=== PATIENT | female | born 1955 | race African-American/Black ===

== ENCOUNTER 2019-11-29 14:45 | Emergency (ER) | payer OTHER ==
--- NOTE | 2019-11-29 15:48 | ER ---
Nurse's Notes [facility] Name: Caroline Newberry Age: 64 yrs Sex: Female : 1955 Arrival Date: 11/29/2019 Time: 14:47 Bed 9 Private MD: Diagnosis: Radiculopathy, cervical region Presentation: 11/28 15:17 Chief complaint: Patient states: Hurt my neck in October lifting stuff and the pain jl7 goes down my back. Coronavirus screen: The patient has NOT traveled to a country currently being monitored by the [facility] within the last 14 days. Proceed with normal triage procedures. Ebola Screen: No symptoms or risks identified at this time. Initial Sepsis Screen: Does the patient meet any 2 criteria? No. Patient's initial sepsis screen is negative. Does the patient have a suspected source of infection? No. Patient's initial sepsis screen is negative. Risk Assessment: Do you want to hurt yourself or someone else? Patient reports no desire to harm self or others. Onset of symptoms was November 08, 2019. 15:17 Method Of Arrival: Ambulatory 7 15:17 Acuity: LOLITA 4 jl7 Triage Assessment: 15:20 General: Appears in no apparent distress. uncomfortable, Behavior is calm, cooperative, jl7 appropriate for age. Pain: Complains of pain in neck Pain radiates to back, right arm and left arm Pain currently is 8 out of 10 on a pain scale. Historical: - Allergies: 15:20 Sulfa (Sulfonamide Antibiotics); jl7 - Home Meds: 15:20 amlodipine oral [Active]; jl7 - PMHx: 15:20 Hypertension; jl7 - PSHx: 15:20 ; jl7 - Immunization history:: Adult Immunizations up to date. - Social history:: Smoking status: Patient denies any tobacco usage or history of. Screenin:21 Abuse screen: Denies threats or abuse. Denies injuries from another. ls4 15:21 Nutritional screening: No deficits noted. Tuberculosis screening: No symptoms or risk ls4 factors identified. Fall Risk None identified. Assessment: 15:21 Neuro: Level of Consciousness is awake, alert, obeys commands, Reports NECK PAIN AFTER ls4 SWERVING CAR TO AVOID ANOTHER CAR . Denies weakness blurred vision dizziness, difficulty swallowing, paresthesias numbness headache photophobia diplopia. Cardiovascular: Capillary refill < 3 seconds Patient's skin is warm and dry. Musculoskeletal: Circulation, motion, and sensation intact. Capillary refill < 3 seconds, Range of motion: intact in all extremities, Swelling absent. Vital Signs: 15:17 BP 148 / 103; Pulse 74; Resp 17 S; Temp 97.7(O); Pulse Ox 100% on R/A; Pain 8/10; jl7 23:53 Pulse 70; Resp 14; Pulse Ox 100% on R/A; Pain 3/10; ls4 ED Course: 14:47 Patient arrived in ED. ag5 15:19 Triage completed. jl7 15:20 Arm band placed on right wrist. jl7 15:21 Patient has correct armband on for positive identification. Bed in low position. Call ls4 light in reach. Side rails up X 1. 15:21 No provider procedures requiring assistance completed. Patient did not have IV access ls4 during this emergency room visit. 15:22 Camille Barahona FNP-C is [facility]. snw 15:22 Pawel Cadet MD is Attending Physician. snw 15:36 Gina Gutierrez, RN is Primary Nurse. ls4 Administered Medications: 15:50 Drug: TORadol 30 mg Route: IM; Site: left deltoid; ls4 16:05 Follow up: Response: No adverse reaction; Marked relief of symptoms ls4 Outcome: 15:47 Discharge ordered by . snw 16:08 Patient left the ED. ls4 16:08 Discharged to home ambulatory. ls4 16:08 Condition: good 16:08 Discharge instructions given to patient, Instructed on discharge instructions, follow up and referral plans. safety practices, Demonstrated understanding of instructions, follow-up care, medications, Prescriptions given X 1, 2. Signatures: Camille Barahona FNP-C ORTHOPTIST-Csnw Lilia Christy RN RN jl7 Gina Gutierrez RN RN ls4 AbhinavCathleen ag5
--- NOTE | 2019-11-29 15:49 | EDPHYS ---
Physician Documentation [facility] Name: Caroline Newberry Age: 64 yrs Sex: Female : 1955 Arrival Date: 11/29/2019 Time: 14:47 Bed 9 Private MD: ED Physician Pawel Cadet HPI: 11/28 15:53 This 64 yrs old Black Female presents to ER via Ambulatory with complaints of Neck snw Pain, <24hrs Old. 15:53 The symptoms are located on the base of the skull. Context: The problem was sustained snw at work, The neck injury/problem resulted from lifting, last month in [facility]. Associated signs and symptoms: The patient has no apparent associated signs or symptoms. The pain does not radiate. Modifying factors: The symptoms are alleviated by nothing. the symptoms are aggravated by pressure. Severity of symptoms: At their worst the symptoms were moderate. The patient has not experienced similar symptoms in the past. Saw clinic in [facility], given anti-inflam, muscle relaxer, pain medication. Historical: - Allergies: 15:20 Sulfa (Sulfonamide Antibiotics); jl7 - Home Meds: 15:20 amlodipine oral [Active]; jl7 - PMHx: 15:20 Hypertension; jl7 - PSHx: 15:20 ; jl7 - Immunization history:: Adult Immunizations up to date. - Social history:: Smoking status: Patient denies any tobacco usage or history of. ROS: 15:52 Constitutional: Negative for fever, chills, and weight loss, Eyes: Negative for injury, snw pain, redness, and discharge, ENT: Negative for injury, pain, and discharge, Cardiovascular: Negative for chest pain, palpitations, and edema, Respiratory: Negative for shortness of breath, cough, wheezing, and pleuritic chest pain, Abdomen/GI: Negative for abdominal pain, nausea, vomiting, diarrhea, and constipation, Back: Negative for injury and pain, : Negative for injury, bleeding, discharge, and swelling, MS/Extremity: Negative for injury and deformity, Skin: Negative for injury, rash, and discoloration, Neuro: Negative for headache, weakness, numbness, tingling, and seizure, Psych: Negative for depression, anxiety, suicide ideation, homicidal ideation, and hallucinations. 15:52 Neck: Positive for pain with movement, pain at rest, tenderness, of the posterior neck. Exam: 15:49 Constitutional: This is a well developed, well nourished patient who is awake, alert, snw and in no acute distress. Head/Face: Normocephalic, atraumatic. Eyes: Pupils equal round and reactive to light, extra-ocular motions intact. Lids and lashes normal. Conjunctiva and sclera are non-icteric and not injected. Cornea within normal limits. Periorbital areas with no swelling, redness, or edema. ENT: Nares patent. No nasal discharge, no septal abnormalities noted. Tympanic membranes are normal and external auditory canals are clear. Oropharynx with no redness, swelling, or masses, exudates, or evidence of obstruction, uvula midline. Mucous membranes moist. Chest/axilla: Normal chest wall appearance and motion. Nontender with no deformity. No lesions are appreciated. Cardiovascular: Regular rate and rhythm with a normal S1 and S2. No gallops, murmurs, or rubs. Normal PMI, no JVD. No pulse deficits. Respiratory: Lungs have equal breath sounds bilaterally, clear to auscultation and percussion. No rales, rhonchi or wheezes noted. No increased work of breathing, no retractions or nasal flaring. Abdomen/GI: Soft, non-tender, with normal bowel sounds. No distension or tympany. No guarding or rebound. No evidence of tenderness throughout. Back: No spinal tenderness. No costovertebral tenderness. Full range of motion. Skin: Warm, dry with normal turgor. Normal color with no rashes, no lesions, and no evidence of cellulitis. Neuro: Awake and alert, GCS 15, oriented to person, place, time, and situation. Cranial nerves II-XII grossly intact. Motor strength 5/5 in all extremities. Sensory grossly intact. Cerebellar exam normal. Normal gait. Psych: Awake, alert, with orientation to person, place and time. Behavior, mood, and affect are within normal limits. 15:49 ENT: External ear(s): are unremarkable, Ear canal(s): are normal, Nose: is normal, Mouth: is normal, Posterior pharynx: is normal, Voice: is normal. 15:49 Neck: External neck: tenderness, that is moderate, of the left mid cervical area, right mid cervical area, left trapezius, lower cervical area and right trapezius, ROM/movement: is normal, pain, that is moderate, limited range of motion, is not appreciated, Meningeal signs: are not present. 15:49 Musculoskeletal/extremity: ROM: no acute changes, Severe pain noted. no numbness, tingling 15:49 Neuro: Orientation: is normal, Mentation: is normal, Memory: is normal. Vital Signs: 15:17 BP 148 / 103; Pulse 74; Resp 17 S; Temp 97.7(O); Pulse Ox 100% on R/A; Pain 8/10; jl7 23:53 Pulse 70; Resp 14; Pulse Ox 100% on R/A; Pain 3/10; ls4 MDM: 15:37 Patient medically screened. snw 15:52 Data reviewed: vital signs, nurses notes. Data interpreted: Pulse oximetry: on room air snw is 100 %. Interpretation: normal. Counseling: I had a detailed discussion with the patient and/or guardian regarding: the historical points, exam findings, and any diagnostic results supporting the discharge/admit diagnosis, the presence of at least one elevated blood pressure reading (>120/80) during this emergency department visit, the need for outpatient follow up, to return to the emergency department if symptoms worsen or persist or if there are any questions or concerns that arise at home. Special discussion: I have referred the patient to see his PCP for further evaluation of high blood pressure. Based on the history and exam findings, there is no indication for further emergent testing or inpatient evaluation. I discussed with the patient/guardian the need to see the primary care provider for further evaluation of the symptoms. Administered Medications: 15:50 Drug: TORadol 30 mg Route: IM; Site: left deltoid; ls4 16:05 Follow up: Response: No adverse reaction; Marked relief of symptoms ls4 Disposition: 17:25 Co-signature as Attending Physician, Pawel Cadet MD I agree with the assessment and kdr plan of care. Disposition: 11/29/19 15:47 Discharged to Home. Impression: Radiculopathy, cervical region. - Condition is Stable. - Discharge Instructions: Cervical Radiculopathy, Cervical Sprain, Heat Therapy. - Prescriptions for orphenadrine citrate 100 mg Oral Tablet Sustained Release - take 1 tablet by ORAL route 2 times per day As needed; 20 tablet. - Medication Reconciliation Form, Thank You Letter, Antibiotic Education, Prescription Opioid Use form. - Follow up: Emergency Department; When: As needed; Reason: Worsening of condition. Follow up: Private Physician; When: 2 - 3 days; Reason: Recheck today's complaints, Continuance of care, Re-evaluation by your physician. Signatures: Pawel Cadet MD MD [facility] Camille Barahona, [employer]-Csnw Lilia Christy RN RN jl7 Gina Gutierrez RN RN ls4 Corrections: (The following items were deleted from the chart) 16:08 15:47 11/29/2019 15:47 Discharged to Home. Impression: Radiculopathy, cervical region. ls4 Condition is Stable. Forms are Medication Reconciliation Form, Thank You Letter, Antibiotic Education, Prescription Opioid Use. Follow up: Emergency Department; When: As needed; Reason: Worsening of condition. Follow up: Private Physician; When: 2 - 3 days; Reason: Recheck today's complaints, Continuance of care, Re-evaluation by your physician. snw
[2019-11-29] MEDS ORDERED: KETOROLAC 30 MG/ML INJ ONE (16:03)
== END 2019-11-29 16:08 | disposition home or self-care (01) ==
LOC: ER 14:45
DX: M54.12 Radiculopathy, cervical region (principal); I10 Essential (primary) hypertension; Z88.2 Allergy status to sulfonamides
CPT/HCPCS: 96372; 99283

== ENCOUNTER 2022-05-08 10:35 | Emergency (ER) | payer OTHER ==
--- OUTSIDE RECORDS SUMMARY | 2022-05-08 10:39 | XMS REPORT | Continuity of Care Document ---
:1955 Author Organization [facility] t Address [address] [place] [address] Care Team Providers Name Role Phone Brittany Sloan Primary Care Physician [phone] CHARY LINTON Attending Clinician Unavailable CAMRYN BELL Attending Clinician Unavailable Doctor Unassigned, [place] Attending Clinician Unavailable Candy Doss Attending Clinician NOE CASTELAN Attending Clinician Unavailable Nurse, [facility] P[facility] Immunization Attending Clinician Unavailable Noe Castelan DO Attending Clinician LETICIA CAI Attending Clinician Unavailable LETICIA CAI Attending Clinician Unavailable CANDY RAMOS Attending Clinician Unavailable Pob, [facility] Main Attending Clinician Unavailable CHRISTINA OCONNOR Attending Clinician Unavailable MALGORZATA ORNELAS Attending Clinician Unavailable BYRON MILNER Attending Clinician Unavailable KURTIS CAMPOVERDE Attending Clinician Unavailable DO MELVI YOST Attending Clinician Unavailable NEMESIO PADRON Attending Clinician Unavailable MD ODETTE RODRIGUEZ Attending Clinician Unavailable LUSI FOURNIER Attending Clinician Unavailable MD LUIS FOURNIER Attending Clinician Unavailable IVETT ADAMS Attending Clinician Unavailable MD IVETT ADAMS Attending Clinician Unavailable ROBIN CARREON Attending Clinician Unavailable SRIDHAR OLIVO Admitting Clinician Unavailable MELVI YOST Admitting Clinician Unavailable DO MELVI YOST Admitting Clinician Unavailable ODETTE RODRIGUEZ Admitting Clinician Unavailable MD ODETTE RODRIGUEZ Admitting Clinician Unavailable LUIS FOURNIER Admitting Clinician Unavailable MD LUIS FOURNIER Admitting Clinician Unavailable IVETT ADAMS Admitting Clinician Unavailable MD IVETT ADAMS Admitting Clinician Unavailable ROBIN CARREON Admitting Clinician Unavailable Payers Payer Name Policy Type Policy Number Effective Date Expiration Date S ource Problems Condition Condition Condition Status Onset Resolution Last Treating Co mments Source Name Details Category Date Date Treatment Clinician Date No known No known Disease Unive rs active active ity of problems problems [facility] Allergies, Adverse Reactions, Alerts Allergy Allergy Status Severity Reaction(s) Onset Inactive Treating Comm ents Source Name Type Date Date Clinician Sulfa Propensi Active Unknown - Unive rs Dyne ty to See comments 7-27 ity of adverse 00:00: [place] reaction 00 Medical s Branch SULFA DRUG Active Unknown-Cmnt Univ ers DYNE 7-27 ity of 00:00: [place] 00 Medical Branch Sulfa Propensi Active Hives 2020-0 Univers (Sulfona ty to 7-27 ity of mide adverse 00:00: [place] Antibiot reaction 00 Medica l ics) s Branch Sulfa Propensi Active Hives 2020-0 Univers (Sulfona ty to 7-27 ity of mide adverse 00:00: [place] Antibiot reaction 00 Medica l ics) s Branch SULFA Drug Active High Hives 2020-0 Univers (SULFONA Class 7-27 ity of MIDE 00:00: [place] ANTIBIOT 00 Medical ICS) Branch Social History Social Habit Start Date Stop Date Quantity Comments Source Exposure to Not sure [facility] SARS-CoV-2 [facility] (event) [place] Tobacco use and 2021-07-31 2021-07-31 Smokeless tobacco Un iversity of exposure 00:00:00 00:00:00 non-user [facility] Alcohol intake 2021-07-31 2021-07-31 Ex-drinker [facility] 00:00:00 00:00:00 (finding) [facility] Sex [birth year] Universit y of 00:00:00 00:00:00 [facility] Smoking Status Start Date Stop Date Source Never smoked tobacco [facility] Medications Ordered Filled Start Stop Current Ordering Indication Dosage Frequency Signature Comments Components Source Medication Medication Date Date Medication? Clinician (SIG) Name Name multivit-mi 2020-09 Yes 1{tbl} Take 1 Un cosme n-ferrous 1-12 tablet by ity o f sulfate 13:42: mouth [place] (ONE DAILY 50 every Medical MULTI-VIT morning. [place] W-MINERAL) 4.5 mg iron PwPk multivit-mi 2020-09 Yes 1{tbl} Take 1 Un cosme n-ferrous 1-12 tablet by ity o f sulfate 13:42: mouth [place] (ONE DAILY 50 every Medical MULTI-VIT morning. [place] W-MINERAL) 4.5 mg iron PwPk multivit-mi 2020-09 Yes 1{tbl} Take 1 Un cosme n-ferrous 1-12 tablet by ity o f sulfate 13:42: mouth [place] (ONE DAILY 50 every Medical MULTI-VIT morning. [facility]-MINERAL) 4.5 mg iron PwPk multivit-mi 2020-09 Yes 1{tbl} Take 1 Un cosme n-ferrous 1-12 tablet by ity o f sulfate 13:42: mouth [place] (ONE DAILY 50 every Medical MULTI-VIT morning. [place] W-MINERAL) 4.5 mg iron PwPk multivit-mi 2020-09 Yes 1{tbl} Take 1 Un cosme n-ferrous 1-12 tablet by ity o f sulfate 13:42: mouth [place] (ONE DAILY 50 every Medical MULTI-VIT morning. [place] W-MINERAL) 4.5 mg iron PwPk multivit-mi 2020-09 Yes 1{tbl} Take 1 Un cosme n-ferrous 1-12 tablet by ity o f sulfate 13:42: mouth [place] (ONE DAILY 50 every Medical MULTI-VIT morning. [place] W-MINERAL) 4.5 mg iron PwPk multivit-mi 2020-09 Yes 1{tbl} Take 1 Un cosme n-ferrous 1-12 tablet by ity o f sulfate 13:42: mouth [place] (ONE DAILY 50 every Medical MULTI-VIT morning. [place] W-MINERAL) 4.5 mg iron PwPk multivit-mi 2020-09 Yes 1{tbl} Take 1 Un cosme n-ferrous 1-12 tablet by ity o f sulfate 13:42: mouth [place] (ONE DAILY 50 every Medical MULTI-VIT morning. Branch W-MINERAL) 4.5 mg iron PwPk amLODIPine 2020-09 Yes Univers 5 mg tablet 0-25 ity of 00:00: Medical Branch amLODIPine 2020-09 Yes Univers 5 mg tablet 0-25 ity of 00:00: [place] [facility] amLODIPine 2020-09 Yes Univers 5 mg tablet 0-25 ity of 00:00: [place] [facility] amLODIPine 2020-09 Yes Univers 5 mg tablet 0-25 ity of 00:00: [place] [facility] amLODIPine 2020-09 Yes Univers 5 mg tablet 0-25 ity of 00:00: [place] [facility] amLODIPine 2020-09 Yes Univers 5 mg tablet 0-25 ity of 00:00: [place] [facility] amLODIPine 2020-09 Yes Univers 5 mg tablet 0-25 ity of 00:00: [place] [facility] amLODIPine 2020-09 Yes Univers 5 mg tablet 0-25 ity of 00:00: [place] [facility] traMADoL 50 2020- No 4647 50mg Take 1 Uni vers mg tablet 04-14 11-12 tablet by ity of 00:00: 00:00 mouth [place] 00 :00 every 6 Medical (six) Branch hours as needed for Pain (scale 7-10). Indication s: acute pain traMADoL 50 2020- No 4647 50mg Take 1 Uni vers mg tablet 04-14 11-12 tablet by ity of 00:00: 00:00 mouth [place] 00 :00 every 6 Medical (six) Branch hours as needed for Pain (scale 7-10). Indication s: acute pain famotidine 2019-09 No 40mg Take 40 mg Univers 40 mg 10-0612 by mouth. ity of tablet 00:00: 00:00 [place] 00 : Medical Branch famotidine 2019-09 No 40mg Take 40 mg Univers 40 mg 10-0612 by mouth. ity of tablet 00:00: 00:00 [place] 00 :00 Medical Branch Immunizations Ordered Filled Immunization Date Status Comments Sour e Immunization Name Name SARS-COV-2 COVID-19 2021-08-31 Completed Unive rsity of PFIZER VACCINE 00:00:00 [facility] SARS-COV-2 COVID-19 2021-08-31 Completed Unive rsity of PFIZER VACCINE 00:00:00 [facility] SARS-COV-2 COVID-19 2021-08-31 Completed Unive rsity of PFIZER VACCINE 00:00:00 [facility] Influenza Virus 2021-06-23 Completed Universit y of Vaccine 00:00:00 [facility] Influenza Virus 2021-06-23 Completed Universit y of Vaccine 00:00:00 [facility] Influenza Virus 2021-06-23 Completed Universit y of Vaccine 00:00:00 [facility] Influenza Virus 2021-06-23 Completed Universit y of Vaccine 00:00:00 [facility] Influenza Virus 2021-06-23 Completed Universit y of Vaccine 00:00:00 [facility] Influenza Virus 2021-06-23 Completed Universit y of Vaccine 00:00:00 [facility] Influenza Virus 2021-06-23 Completed Universit y of Vaccine 00:00:00 [facility] Influenza Virus 2021-06-23 Completed Universit y of Vaccine 00:00:00 [facility] SARS-COV-2 COVID-19 2021-01-02 Completed Unive rsity of PFIZER VACCINE 00:00:00 [facility] SARS-COV-2 COVID-19 2021-01-02 Completed Unive rsity of PFIZER VACCINE 00:00:00 [facility] SARS-COV-2 COVID-19 2021-01-02 Completed Unive rsity of PFIZER VACCINE 00:00:00 [facility] SARS-COV-2 COVID-19 2021-01-02 Completed Unive rsity of PFIZER VACCINE 00:00:00 [facility] SARS-COV-2 COVID-19 2021-01-02 Completed Unive rsity of PFIZER VACCINE 00:00:00 [facility] SARS-COV-2 COVID-19 2021-01-02 Completed Unive rsity of PFIZER VACCINE 00:00:00 [facility] SARS-COV-2 COVID-19 2021-01-02 Completed Unive rsity of PFIZER VACCINE 00:00:00 [facility] SARS-COV-2 COVID-19 2021-01-02 Completed Unive rsity of PFIZER VACCINE 00:00:00 [facility] SARS-COV-2 COVID-19 2020-12-11 Completed Unive rsity of PFIZER VACCINE 00:00:00 [facility] SARS-COV-2 COVID-19 2020-12-11 Completed Unive rsity of PFIZER VACCINE 00:00:00 [facility] SARS-COV-2 COVID-19 2020-12-11 Completed Unive rsity of PFIZER VACCINE 00:00:00 [facility] SARS-COV-2 COVID-19 2020-12-11 Completed Unive rsity of PFIZER VACCINE 00:00:00 [facility] SARS-COV-2 COVID-19 2020-12-11 Completed Unive rsity of PFIZER VACCINE 00:00:00 [facility] SARS-COV-2 COVID-19 2020-12-11 Completed Unive rsity of PFIZER VACCINE 00:00:00 [facility] SARS-COV-2 COVID-19 2020-12-11 Completed Unive rsity of PFIZER VACCINE 00:00:00 [facility] SARS-COV-2 COVID-19 2020-12-11 Completed Unive rsity of PFIZER VACCINE 00:00:00 [facility] Influenza Virus 2020-07-10 Completed Universit y of Vaccine Recomb Quad 00:00:00 [place] [facility] IM, Preserv and ABX Branc h Free 18-64 YRS Influenza Virus 2020-07-10 Completed Universit y of Vaccine Recomb Quad 00:00:00 [place] [facility] IM, Preserv and ABX Branc h Free 18-64 YRS Influenza Virus 2020-07-10 Completed Universit y of Vaccine Recomb Quad 00:00:00 [place] [facility] IM, Preserv and ABX Branc h Free 18-64 YRS Influenza Virus 2020-07-10 Completed Universit y of Vaccine Recomb Quad 00:00:00 [place] [facility] IM, Preserv and ABX Branc h Free 18-64 YRS Influenza Virus 2020-07-10 Completed Universit y of Vaccine Recomb Quad 00:00:00 [place] [facility] IM, Preserv and ABX Branc h Free 18-64 YRS Influenza Virus 2020-07-10 Completed Universit y of Vaccine Recomb Quad 00:00:00 [place] [facility] IM, Preserv and ABX Branc h Free 18-64 YRS Influenza Virus 2020-07-10 Completed Universit y of Vaccine Recomb Quad 00:00:00 [place] [facility] IM, Preserv and ABX Branc h Free 18-64 YRS Influenza Virus 2020-07-10 Completed Universit y of Vaccine Recomb Quad 00:00:00 [place] [facility] IM, Preserv and ABX Branc h Free 18-64 YRS Vital Signs Vital Name Observation Time Observation Value Comments Source Systolic blood 2021-07-31 19:40:00 123 mm[Hg] Univer sity of pressure [facility] Diastolic blood 2021-07-31 19:40:00 68 mm[Hg] Unive rsity of pressure [facility] Heart rate 2021-07-31 19:40:00 74 /min [facility] Body temperature 2021-07-31 19:40:00 [facility]11 [facility] height 2021-07-31 19:40:00 149.9 cm [facility] Body weight 2021-07-31 19:40:00 53.025 kg [facility] BMI 2021-07-31 19:40:00 23.61 kg/m2 [facility] Oxygen saturation in 2021-07-31 19:40:00 99 /min [facility] Arterial blood by [facility] Pulse oximetry Branch Procedures Procedure Date / Time Performed Performing Clinician [facility] e REFERRAL- 2022-04-20 05:01:00 Doctor Unassigned, No [facility] REQUEST/RESPONSE [facility] SARS-COV-2 COVID-19 2021-08-31 20:10:29 [facility],IM Name [facility] (PFIZER) CT HEAD WO CONTRAST 2021-08-17 23:01:13 Candy Ramos [facility] ASSIGNMENT OF BENEFITS 2021-08-17 22:19:28 Doctor Unassigned, No [facility] Encounters Start End Encounter Admission Attending Care Care Encounter Source Date/Time Date/Time Type Type Clinicians Facility Department ID 2022-05-06 2022-05-06 Outpatient [facility] [id number] [place] 00:00:00 00:00:00 CHARY [facility] 2022-05-05 2022-05-05 Outpatient [facility] [id number] 173 [place] 00:00:00 00:00:00 CHARY 566 [facility] 2022-05-03 2022-05-03 Outpatient PRATH[facility] [id number] 713 [place] 00:00:00 00:00:00 CHARY 990 [facility] 2022-04-30 2022-04-30 Outpatient PRATH, [facility] [id number] 068 [place] 00:00:00 00:00:00 CHARY 498 [facility] 2022-04-26 2022-04-26 Outpatient [facility]ATH[facility] [id number] 713 [place] 00:00:00 00:00:00 CHARY 895 [facility] 2022-04-22 2022-04-22 Outpatient KATTEGUMMUL [facility] [id number] [place] 00:00:00 00:00:00 CAMRYN Quinones 976 [address]ro 2022-04-20 2022-04-20 Orders Doctor ASAF [id number] [place] [address] 00:00:00 00:00:00 Only Unassigned, ALISON [id number] [facility] [id number] Danish as [id number] [facility] francesco 009 Branch 2022-04-19 2022-04-19 Outpatient [facility] [id number] 713 [place] 00:00:00 00:00:00 CHARY 785 Method i 2022-04-15 2022-04-15 Outpatient [facility] [id number] 871 [place] 00:00:00 00:00:00 CHARY 500 [facility] 2022-04-15 2022-04-15 Outpatient [facility] [id number] 352 [place] 00:00:00 00:00:00 CHARY 915 Method i 2022-04-12 2022-04-12 Outpatient [facility] [id number] 983 [place] 00:00:00 00:00:00 CHARY 249 [facility] i 2022-04-06 2022-04-06 Outpatient [facility] [id number] 400 [place] 00:00:00 00:00:00 CHARY 881 [facility] i 2022-04-05 2022-04-05 Outpatient [facility] [id number] 983 [place] 00:00:00 00:00:00 CHARY [address] 2022-03-29 2022-03-29 Outpatient [facility] [id number] 983 [place] 00:00:00 00:00:00 CHARY [address] 2022-03-23 2022-03-23 Outpatient [facility] [id number] 982 [place] 00:00:00 00:00:00 CHARY [address] 2022-03-18 2022-03-18 Outpatient [facility] [id number] 838 [place] 00:00:00 00:00:00 CHARY [address] 2022-03-18 2022-03-18 Outpatient [facility] [id number] 219 [place] 00:00:00 00:00:00 CHARY [address] 2022-03-11 2022-03-11 Outpatient [facility] [id number] 345 [place] 00:00:00 00:00:00 CHARY [address] 2022-03-04 2022-03-04 Outpatient [facility] [id number] 262 [place] 00:00:00 00:00:00 CHARY [address] 2022-03-01 2022-03-01 Outpatient [facility] [id number] 514 [place] 00:00:00 00:00:00 CHARY [address] 2022-02-24 2022-02-24 Outpatient [facility] [id number] 632 [place] 00:00:00 00:00:00 CHARY [address] 2022-02-22 2022-02-22 Outpatient [facility] [id number] 760 [place] 00:00:00 00:00:00 CHARY [address] 2022-02-16 2022-02-16 Outpatient [facility] [id number] 748 [place] 00:00:00 00:00:00 CHARY [address] 2022-02-12 2022-02-12 Outpatient [facility] [id number] 023 [place] 00:00:00 00:00:00 CHARY [address] 2022-02-08 2022-02-08 Outpatient [facility] [id number] 976 [place] 00:00:00 00:00:00 CHARY [address] 2022-02-01 2022-02-01 Outpatient [facility] [id number] 975 [place] 00:00:00 00:00:00 CHARY [address] 2022-01-28 2022-01-28 Outpatient [facility] [id number] 912 [place] 00:00:00 00:00:00 CHARY [address] 2022-01-28 2022-01-28 Outpatient [facility] [id number] 943 [place] 00:00:00 00:00:00 CHARY [address] 2022-01-25 2022-01-25 Outpatient [facility] [id number] 912 [place] 00:00:00 00:00:00 CHARY [address] 2022-01-21 2022-01-21 Outpatient [facility] [id number] 526 [place] 00:00:00 00:00:00 CHARY [address] 2022-01-21 2022-01-21 Outpatient [facility] [id number] 451 [place] 00:00:00 00:00:00 CHARY [address] 2022-01-18 2022-01-18 Outpatient [facility] [id number] 526 [place] 00:00:00 00:00:00 CHARY 114 [facility] 2022-01-14 2022-01-14 Outpatient [facility] [id number] 040 [place] 00:00:00 00:00:00 CHARY 508 [facility] 2022-01-14 2022-01-14 Outpatient [facility] [id number] 306 [place] 00:00:00 00:00:00 CHARY [address] 2022-01-11 2022-01-11 Outpatient [facility] [id number] 040 [place] 00:00:00 00:00:00 CHARY [address] 2022-01-07 2022-01-07 Outpatient [facility] [id number] 040 [place] 00:00:00 00:00:00 CHARY 212 [facility] 2022-01-04 2022-01-04 Outpatient [facility] [id number] 040 [place] 00:00:00 00:00:00 CHARY [address] 2021-12-30 2021-12-30 Outpatient [facility] [id number] 039 [place] 00:00:00 00:00:00 CHARY [address] 2021-12-28 2021-12-28 Outpatient [facility] [id number] 160 [place] 00:00:00 00:00:00 CHARY [address] 2021-12-24 2021-12-24 Outpatient [facility] [id number] 160 [place] 00:00:00 00:00:00 CHARY [address] 2021-12-21 2021-12-21 Outpatient [facility] [id number] 160 [place] 00:00:00 00:00:00 CHARY [address] 2021-12-17 2021-12-17 Outpatient [facility] [id number] 343 [place] 00:00:00 00:00:00 CHARY [address] 2021-12-14 2021-12-14 Outpatient [facility] [id number] 714 [place] 00:00:00 00:00:00 CHARY [address] 2021-12-10 2021-12-10 Outpatient [facility] [id number] 343 [place] 00:00:00 00:00:00 CAHRY [address] 2021-12-10 2021-12-10 Outpatient [facility] [id number] 751 [place] 00:00:00 00:00:00 CHARY [address] 2021-12-07 2021-12-07 Outpatient [facility] [id number] 343 [place] 00:00:00 00:00:00 CHARY [address] 2021-12-03 2021-12-03 Outpatient [facility] [id number] 425 [place] 00:00:00 00:00:00 CHARY [address] 2021-11-30 2021-11-30 Outpatient [facility] [id number] 425 [place] 00:00:00 00:00:00 CHARY [address] 2021-11-26 2021-11-26 Outpatient [facility] [id number] 425 [place] 00:00:00 00:00:00 CHARY [address] 2021-11-23 2021-11-23 Outpatient [facility] [id number] 425 [place] 00:00:00 00:00:00 CHARY [address] 2021-11-19 2021-11-19 Outpatient [facility] [id number] 118 [place] 00:00:00 00:00:00 CHARY [address] 2021-11-16 2021-11-16 Outpatient [facility] [id number] 118 [place] 00:00:00 00:00:00 CHARY [address] 2021-11-12 2021-11-12 Outpatient [facility] [id number] 118 [place] 00:00:00 00:00:00 CHARY [address] 2021-11-09 2021-11-09 Outpatient [facility] [id number] 118 [place] 00:00:00 00:00:00 CHARY [address] 2021-11-05 2021-11-05 Outpatient [facility] [id number] 883 [place] 00:00:00 00:00:00 CHARY [address] 2021-11-05 2021-11-05 Outpatient [facility] [id number] 295 [place] 00:00:00 00:00:00 CHARY [address] 2021-11-02 2021-11-02 Outpatient [facility] [id number] 880 [place] 00:00:00 00:00:00 CHARY [address] 2021-10-29 2021-10-29 Outpatient [facility] [id number] 880 [place] 00:00:00 00:00:00 CHARY [address] 2021-10-26 2021-10-26 Outpatient [facility] [id number] 880 [place] 00:00:00 00:00:00 CHARY [address] 2021-10-22 2021-10-22 Outpatient [facility] [id number] 302 [place] 00:00:00 00:00:00 CHARY [address] 2021-10-21 2021-10-21 Outpatient [facility] [id number] 482 [place] 00:00:00 00:00:00 CHARY 695 [facility] 2021-10-19 2021-10-19 Outpatient [facility] [id number] 302 [place] 00:00:00 00:00:00 CHARY 006 [facility] i 2021-10-15 2021-10-15 Outpatient [facility] [id number] 075 [place] 00:00:00 00:00:00 CHARY 306 [facility] 2021-10-12 2021-10-12 Outpatient [facility] [id number] 074 [place] 00:00:00 00:00:00 CHARY 999 [facility] 2021-10-08 2021-10-08 Outpatient [facility] [id number] 887 [place] 00:00:00 00:00:00 CHARY 654 [facility] 2021-10-05 2021-10-05 Outpatient [facility] [id number] 887 [place] 00:00:00 00:00:00 CHARY 485 [facility] 2021-10-01 2021-10-01 Outpatient [facility] [id number] [place] 00:00:00 00:00:00 CHARY 036 [facility] 2021-09-28 2021-09-28 Outpatient [facility] [id number] 953 [place] 00:00:00 00:00:00 CHARY 478 [facility] 2021-09-24 2021-09-24 Outpatient [facility] [id number] 039 [place] 00:00:00 00:00:00 CHARY 811 [facility] 2021-09-21 2021-09-21 Outpatient [facility] [id number] 039 [place] 00:00:00 00:00:00 CHARY 725 [facility] 2021-09-16 2021-09-16 Outpatient [facility] [id number] 037 [place] 00:00:00 00:00:00 CHARY 509 [facility] 2021-09-15 2021-09-15 Telephone Richard, [facility] [id number] [facility] [place] 00:00:00 00:00:00 Candy [facility] [id number] selene Strong [id number] Danish as JANICE?BLEA [id number] [address] MEDICAL OFFICE BUILDING 2021-09-14 2021-09-14 Outpatient [facility] [id number] 037 [place] 00:00:00 00:00:00 CHARY 437 [facility] 2021-09-10 2021-09-10 Outpatient [facility] [id number] 334 [place] 00:00:00 00:00:00 CHARY 613 [facility] 2021-09-09 2021-09-09 Outpatient [facility] [id number] 293 [place] 00:00:00 00:00:00 CHARY 970 [facility] 2021-09-07 2021-09-07 Outpatient [facility] [id number] 334 [place] 00:00:00 00:00:00 CHARY 542 [facility] 2021-09-03 2021-09-03 Outpatient [facility] [id number] 334 [place] 00:00:00 00:00:00 CHARY 465 [facility] 2021-08-31 2021-08-31 Outpatient Compa [facility] [id number] 483 [facility] [place] 14:00:00 14:00:00 NOE jiang [facility] 2021-08-31 2021-08-31 Imm/Inj Nurse, Adc Pob Immunization [facility] [id number] Univers 13:55:36 13:55:57 Visit Noe Castelan [id number] [facility] [id number] Megan ROMEROIO [id number] [address] 2021-08-31 2021-08-31 Outpatient [facility] [id number] 334 [place] 00:00:00 00:00:00 CHARY 413 [facility] 2021-08-27 2021-08-27 Outpatient [facility] [id number] 334 [place] 00:00:00 00:00:00 CHARY 337 [facility] 2021-08-24 2021-08-24 Outpatient [facility] [id number] 334 [place] 00:00:00 00:00:00 CHARY 293 [facility] 2021-08-20 2021-08-20 Outpatient [facility] [id number] 646 [place] 00:00:00 00:00:00 CHARY 750 [facility] 2021-08-18 2021-08-18 Outpatient LETICIA YA [facility] [id number] Univers 14:20:00 14:20:00 LETICIA CAI [id number] ity [facility] 2021-08-18 2021-08-18 Outpatient R LETICIA CAI [facility] [id number] Univers 14:20:00 14:20:00 [facility] 2021-08-17 Outpatient R [facility] [id number] Univers 16:26:01 23:59:00 CANDY ity [facility] 2021-08-17 2021-08-17 [facility] [id number] Univers 16:00:00 23:59:00 Encounter Candy WRIGHT [id number] ity [facility] [id number] [facility] [id number] [facility] [address] [place] 2021-08-17 2021-08-17 Outpatient R [facility] [id number] Univers 17:15:00 17:15:00 [facility] [id number] [facility]-08-17 2021-08-17 Telephonic Nurse Case Manager Maura, Danish Lab Main [facility] [id number] Univers 16:47:51 17:02:51 [id number] [id number] [facility] [id number] Ga dical [facility] 353 [facility] 2021-08-17 2021-08-17 Orders Doctor ASAF [id number] [employer] 00:00:00 00:00:00 Only Unassigned, ALISON [id number] ity of [facility] [id number] Danish [id number] [facility] 009 [place] 2021-08-17 2021-08-17 Outpatient [facility] [id number] 646 [place] 00:00:00 00:00:00 CHARY [facility] 2021-08-12 2021-08-12 Outpatient [facility] [id number] 687 [place] 00:00:00 00:00:00 CHARY 682 [facility] 2021-08-10 2021-08-10 Outpatient PRATH, [facility] [id number] 687 [place] 00:00:00 00:00:00 CHARY [facility] 2021-08-06 2021-08-06 Outpatient PRATH, [facility] [id number] 236 [place] 00:00:00 00:00:00 CHARY 675 [facility] 2021-08-03 2021-08-03 Outpatient PRATH, [facility] [id number] 236 [place] 00:00:00 00:00:00 CHARY 602 [facility] 2021-08-01 2021-08-01 Emergency RIVENES, [facility] [id number] 854 [place] 00:00:00 00:00:00 CHRISTINA 010 [facility] 2021-07-31 2021-07-31 Office Richard, [facility] [id number] [employer] 13:36:05 14:37:49 [facility] [id number] selene Strong [id number] Danish as JANICE?BLEA [id number] [address] MEDICAL OFFICE BUILDING 2021-07-31 2021-07-31 [facility] [id number] 766 [facility] 13:30:00 14:37:49 CANDY jiang [facility] 2021-07-30 2021-07-30 Outpatient PRATH, [facility] [id number] 236 [place] 00:00:00 00:00:00 CHARY 520 [facility] 2021-07-30 2021-07-30 Outpatient PRATH, [facility] [id number] 309 [place] 00:00:00 00:00:00 CHARY 755 [facility] 2021-07-27 2021-07-27 Outpatient PRATH, [facility] [id number] 236 [place] 00:00:00 00:00:00 CHARY 458 [facility] 2021-07-23 2021-07-23 Outpatient PRATH, [facility] [id number] 930 [place] 00:00:00 00:00:00 CHARY 480 [facility] 2021-07-20 2021-07-20 Outpatient PRATH, [facility] [id number] 236 [place] 00:00:00 00:00:00 CHARY [address] [facility] [address] [facility] 2021-07-16 2021-07-16 Outpatient PRATH, [facility] [id number] 388 [place] 00:00:00 00:00:00 CHARY [address] [facility] [address] [facility] 2021-07-13 2021-07-13 Outpatient PRATH, [facility] [id number] 388 [place] 00:00:00 00:00:00 CHARY [address] [facility] 2021-07-09 2021-07-09 Outpatient PRATH, [facility] [id number] 880 [place] 00:00:00 00:00:00 CHARY [address] [facility] 2021-07-06 2021-07-06 Outpatient PRATH, [facility] [id number] 880 [place] 00:00:00 00:00:00 CHARY [address] [facility] 2021-07-02 2021-07-02 Outpatient PRATH, [facility] [id number] 268 [place] 00:00:00 00:00:00 CHARY [address] [facility] 2021-06-29 2021-06-29 Outpatient PRATH, [facility] [id number] 268 [place] 00:00:00 00:00:00 CHARY [address] [facility] 2021-06-25 2021-06-25 Outpatient PRATH, [facility] [id number] 058 [place] 00:00:00 00:00:00 CHARY [address] [facility] 2021-06-22 2021-06-22 Outpatient PRATH, [facility] [id number] 058 [place] 00:00:00 00:00:00 CHARY [address] [facility] 2021-06-18 2021-06-18 Outpatient PRATH, [facility] [id number] 421 [place] 00:00:00 00:00:00 CHARY [address] [facility] 2021-06-15 2021-06-15 Outpatient PRATH, [facility] [id number] 421 [place] 00:00:00 00:00:00 CHARY [address] [facility] 2021-06-11 2021-06-11 Outpatient PRATH, [facility] [id number] 421 [place] 00:00:00 00:00:00 CHARY [address] [facility] 2021-06-08 2021-06-08 Outpatient PRATH, [facility] [id number] 421 [place] 00:00:00 00:00:00 CHARY [address] [facility] 2021-06-04 2021-06-04 Outpatient PRATH, [facility] [id number] 421 [place] 00:00:00 00:00:00 CHARY [address] [facility] 2021-06-01 2021-06-01 Outpatient PRATH, [facility] [id number] 421 [place] 00:00:00 00:00:00 CHARY 126 [facility] 2021-06-01 2021-06-01 Outpatient PRATH, [facility] [id number] 464 [place] 00:00:00 00:00:00 CHARY 238 [facility] 2021-05-29 2021-05-29 Outpatient PRATH, [facility] [id number] 420 [place] 00:00:00 00:00:00 CHARY 688 [facility] 2021-05-26 2021-05-26 Outpatient PRATH, [facility] [id number] 420 [place] 00:00:00 00:00:00 CHARY 648 [facility] 2021-05-21 2021-05-21 Outpatient PRATH, [facility] [id number] 458 [place] 00:00:00 00:00:00 CHARY 637 [facility] 2021-05-18 2021-05-18 Outpatient PRATH, [facility] [id number] 457 [place] 00:00:00 00:00:00 CHARY 253 [facility] 2021-05-14 2021-05-14 Outpatient PRATH, [facility] [id number] 778 [place] 00:00:00 00:00:00 CHARY 594 [facility] 2021-05-11 2021-05-11 Outpatient PRATH, [facility] [id number] 778 [place] 00:00:00 00:00:00 CHARY 442 [facility] 2021-05-07 2021-05-07 Outpatient PRATH, [facility] [id number] 778 [place] 00:00:00 00:00:00 CHARY 353 [facility] 2021-05-04 2021-05-04 Outpatient PRATH, [facility] [id number] 778 [place] 00:00:00 00:00:00 CHARY 281 [facility] 2021-05-01 2021-05-01 Outpatient PRATH, [facility] [id number] 948 [place] 00:00:00 00:00:00 CHARY 409 [facility] 2021-04-28 2021-04-28 Outpatient PRATH, [facility] [id number] 948 [place] 00:00:00 00:00:00 CHARY [address] [facility] 2021-04-23 2021-04-23 Outpatient PRATH, [facility] [id number] 872 [place] 00:00:00 00:00:00 CHARY [address] [facility] 2021-04-20 2021-04-20 Outpatient PRATH, [facility] [id number] 872 [place] 00:00:00 00:00:00 CHARY [address] [facility] 2021-04-16 2021-04-16 Outpatient PRATH, [facility] [id number] 872 [place] 00:00:00 00:00:00 CHARY [address] [facility] 2021-04-13 2021-04-13 Outpatient PRATH, [facility] [id number] 872 [place] 00:00:00 00:00:00 CHARY [address] [facility] 2021-04-09 2021-04-09 Outpatient PRATH, [facility] [id number] 691 [place] 00:00:00 00:00:00 CHARY [address] [facility] [address] [facility] 2021-04-06 2021-04-06 Outpatient PRATH, [facility] [id number] 691 [place] 00:00:00 00:00:00 CHARY [address] [facility] 2021-04-02 2021-04-02 Outpatient PRATH, [facility] [id number] 850 [place] 00:00:00 00:00:00 CHARY [address] [facility] 2021-04-02 2021-04-02 Outpatient PRATH, [facility] [id number] 261 [place] 00:00:00 00:00:00 CHARY [address] [facility] 2021-03-30 2021-03-30 Outpatient PRATH, [facility] [id number] 850 [place] 00:00:00 00:00:00 CHARY [address] [facility] 2021-03-26 2021-03-26 Outpatient PRATH, [facility] [id number] 861 [place] 00:00:00 00:00:00 CHARY [address] [facility] 2021-03-24 2021-03-24 Outpatient PRATH, [facility] [id number] 256 [place] 00:00:00 00:00:00 CHARY [address] [facility] 2021-03-19 2021-03-19 Outpatient PRATH, [facility] [id number] 256 [place] 00:00:00 00:00:00 CHARY [address] [facility] 2021-03-16 2021-03-16 Outpatient PRATH, [facility] [id number] 255 [place] 00:00:00 00:00:00 CHARY [address] [facility] 2021-03-12 2021-03-12 Outpatient PRATH, [facility] [id number] 500 [place] 00:00:00 00:00:00 CHARY [address] [facility] [address] [facility] 2021-03-09 2021-03-09 Outpatient PRATH, [facility] [id number] 500 [place] 00:00:00 00:00:00 CHARY [address] [facility] [address] [facility] 2021-03-05 2021-03-05 Outpatient PRATH, [facility] [id number] 500 [place] 00:00:00 00:00:00 CHARY [address] [facility] 2021-03-02 2021-03-02 Outpatient PRATH, [facility] [id number] 500 [place] 00:00:00 00:00:00 CHARY [address] [facility] 2021-02-26 2021-02-26 Outpatient PRATH, [facility] [id number] 988 [place] 00:00:00 00:00:00 CHARY [address] [facility] 2021-02-26 2021-02-26 Outpatient PRATH, [facility] [id number] 026 [place] 00:00:00 00:00:00 CHARY [address] [facility] [address] [facility] 2021-02-23 2021-02-23 Outpatient PRATH, [facility] [id number] 026 [place] 00:00:00 00:00:00 CHARY [address] [facility] [address] [facility] 2021-02-20 2021-02-20 Outpatient PRATH, [facility] [id number] 835 [place] 00:00:00 00:00:00 CHARY [address] [facility] 2021-02-19 2021-02-19 Outpatient PRATH, [facility] [id number] 868 [place] 00:00:00 00:00:00 CHARY [address] [facility] 2021-02-17 2021-02-17 Outpatient PRATH, [facility] [id number] 310 [place] 00:00:00 00:00:00 CHARY [address] [facility] [address] [facility] 2021-02-13 2021-02-13 Outpatient PRATH, [facility] [id number] 457 [place] 00:00:00 00:00:00 CHARY [address] [facility] [address] [facility] 2021-02-12 2021-02-12 Outpatient PRATH, [facility] [id number] 867 [place] 00:00:00 00:00:00 CHARY [address] [facility] [address] [facility] 2021-02-09 2021-02-09 Outpatient PRATH, [facility] [id number] 867 [place] 00:00:00 00:00:00 CHARY 590 [facility] 2021-02-05 2021-02-05 Outpatient PRATH, [facility] [id number] 043 [place] 00:00:00 00:00:00 CHARY 123 [facility] 2021-02-05 2021-02-05 Outpatient PRATH, [facility] [id number] 867 [place] 00:00:00 00:00:00 CHARY 373 [facility] 2021-02-03 2021-02-03 Outpatient PRATH, [facility] [id number] 715 [place] 00:00:00 00:00:00 CHARY 902 [facility] 2021-02-02 2021-02-02 Outpatient PRATH, [facility] [id number] 867 [place] 00:00:00 00:00:00 CHARY 233 [facility] 2021-01-29 2021-01-29 Outpatient PRATH, [facility] [id number] 867 [place] 00:00:00 00:00:00 CHARY 036 [facility] 2021-01-27 2021-01-27 Outpatient PRATH, [facility] [id number] 257 [place] 00:00:00 00:00:00 CHARY 273 [facility] 2021-01-26 2021-01-26 Outpatient PRATH, [facility] [id number] 866 [place] 00:00:00 00:00:00 CHARY 925 [facility] 2021-01-23 2021-01-23 Outpatient PRATH, [facility] [id number] 866 [place] 00:00:00 00:00:00 CHARY [address] 2021-01-21 2021-01-21 Outpatient PRATH, [facility] [id number] 847 [place] 00:00:00 00:00:00 CHARY 284 [facility] 2021-01-20 2021-01-20 Outpatient PRATH, [facility] [id number] 371 [place] 00:00:00 00:00:00 CHARY [address] [facility] 2021-01-14 2021-01-14 Outpatient PRATH, [facility] [id number] 369 [place] 00:00:00 00:00:00 CHARY [address] [facility] 2021-01-13 2021-01-13 Outpatient PRATH, [facility] [id number] 181 [place] 00:00:00 00:00:00 CHARY [address] [facility] 2021-01-08 2021-01-08 Outpatient PRATH, [facility] [id number] 444 [place] 00:00:00 00:00:00 CHARY 131 [facility] 2021-01-06 2021-01-06 Outpatient PRATH, [facility] [id number] 181 [place] 00:00:00 00:00:00 CHARY [address] [facility] 2020-12-31 2020-12-31 Outpatient PRATH, [facility] [id number] 353 [place] 00:00:00 00:00:00 CHARY 715 [facility] 2020-12-30 2020-12-30 Outpatient PRATH, [facility] [id number] 822 [place] 00:00:00 00:00:00 CHARY 226 [facility] 2020-12-24 2020-12-24 Outpatient PRATH, [facility] [id number] 761 [place] 00:00:00 00:00:00 CHARY [address] [facility] 2020-12-23 2020-12-23 Outpatient PRATH, [facility] [id number] 822 [place] 00:00:00 00:00:00 CHARY 130 [facility] 2020-12-16 2020-12-16 Outpatient PRATH, [facility] [id number] 767 [place] 00:00:00 00:00:00 CHARY 056 [facility] 2020-12-09 2020-12-09 Outpatient PRATH, [facility] [id number] 689 [place] 00:00:00 00:00:00 CHARY [address] [facility] 2020-12-03 2020-12-03 Outpatient PRATH, [facility] [id number] 299 [place] 00:00:00 00:00:00 CHARY [address] [facility] 2020-12-02 2020-12-02 Outpatient PRATH, [facility] [id number] 766 [place] 00:00:00 00:00:00 CHARY [address] [facility] [address] [facility] 2020-11-25 2020-11-25 Outpatient PRATH, [facility] [id number] 824 [place] 00:00:00 00:00:00 CHARY [address] [facility] [address] [facility] 2020 2020 Outpatient PRATH, [facility] [id number] 340 [place] 00:00:00 00:00:00 CHARY [address] [facility] 2020-11-19 2020-11-19 Outpatient PRATH, [facility] [id number] 222 [place] 00:00:00 00:00:00 CHARY [address] [facility] 2020-11-18 2020-11-18 Outpatient PRATH, [facility] [id number] 355 [place] 00:00:00 00:00:00 CHARY [address] [facility] 2020-11-11 2020-11-11 Outpatient PRATH, [facility] [id number] 355 [place] 00:00:00 00:00:00 CHARY [address] [facility] 2020-11-07 2020-11-07 Outpatient PRATH, [facility] [id number] 416 [place] 00:00:00 00:00:00 CHARY [address] [facility] [address] [facility] 2020-10-28 2020-10-28 Outpatient PRATH, [facility] [id number] 266 [place] 00:00:00 00:00:00 CHARY [address] [facility] 2020-10-21 2020-10-21 Outpatient PRATH, [facility] [id number] 715 [place] 00:00:00 00:00:00 CHARY [address] [facility] 2020-10-14 2020-10-14 Outpatient PRATH, [facility] [id number] 926 [place] 00:00:00 00:00:00 CHARY [address] [facility] 2020-10-13 2020-10-13 Outpatient PRATH, [facility] [id number] 896 [place] 00:00:00 00:00:00 CHARY [address] [facility] 2020-10-07 2020-10-07 Outpatient PRATH, [facility] [id number] 926 [place] 00:00:00 00:00:00 CHARY [address] [facility] [address] [facility] 2020-09-30 2020-09-30 Outpatient PRATH, [facility] [id number] 885 [place] 00:00:00 00:00:00 CHARY [address] [facility] 2020-09-24 2020-09-24 Outpatient PRATH, [facility] [id number] 295 [place] 00:00:00 00:00:00 CHARY [address] [facility] [address] [facility] 2020-09-23 2020-09-23 Outpatient PRATH, [facility] [id number] 459 [place] 00:00:00 00:00:00 CHARY [address] [facility] 2020-09-16 2020-09-16 Outpatient PRATH, [facility] [id number] 198 [place] 00:00:00 00:00:00 CHARY [address] [facility] 2020-09-15 2020-09-15 Outpatient PRATH, [facility] [id number] 277 [place] 00:00:00 00:00:00 CHARY [address] [facility] 2020-09-11 2020-09-11 Outpatient PRATH, [facility] [id number] 198 [place] 00:00:00 00:00:00 CHARY [address] [facility] 2020-09-09 2020-09-09 Outpatient PRATH, [facility] [id number] 908 [place] 00:00:00 00:00:00 CHARY [address] [facility] 2020-09-05 2020-09-05 Outpatient PRATH, [facility] [id number] 553 [place] 00:00:00 00:00:00 CHARY [address] [facility] 2020-09-02 2020-09-02 Outpatient PRATH, [facility] [id number] 791 [place] 00:00:00 00:00:00 CHARY [address] 2020-08-29 2020-08-29 Outpatient PRATH, [facility] [id number] 552 [place] 00:00:00 00:00:00 CHARY [address] [facility] 2020-08-26 2020-08-26 Outpatient PRATH, [facility] [id number] 772 [place] 00:00:00 00:00:00 CHARY [address] 2020-08-22 2020-08-22 Outpatient PRATH, [facility] [id number] 280 [place] 00:00:00 00:00:00 CHARY [address] 2020-08-19 2020-08-19 Outpatient PRATH, [facility] [id number] 248 [place] 00:00:00 00:00:00 CHARY [address] [facility] 2020-08-18 2020-08-18 Outpatient PRATH, [facility] [id number] 402 [place] 00:00:00 00:00:00 CHARY [address] [facility] 2020-08-12 2020-08-12 Outpatient PRATH, [facility] [id number] 248 [place] 00:00:00 00:00:00 CHARY [address] 2020-08-08 2020-08-08 Outpatient PRATH, [facility] [id number] 247 [place] 00:00:00 00:00:00 CHARY [address] 2020-08-05 2020-08-05 Outpatient PRATH, [facility] [id number] 246 [place] 00:00:00 00:00:00 CHARY [address] 2020-08-01 2020-08-01 Outpatient PRATH, [facility] [id number] 347 [place] 00:00:00 00:00:00 CHARY [address] 2020-07-31 2020-07-31 Outpatient PRATH, [facility] [id number] 404 [place] 00:00:00 00:00:00 CHARY [address] 2020-07-31 2020-07-31 Outpatient PRATH, [facility] [id number] 579 [place] 00:00:00 00:00:00 CHARY [address] 2020-07-29 2020-07-29 Outpatient PRATH, [facility] [id number] 347 [place] 00:00:00 00:00:00 CHARY [address] [facility] 2020-07-25 2020-07-25 Outpatient PRATH, [facility] [id number] 472 [place] 00:00:00 00:00:00 CHARY [address] [facility] 2020-07-22 2020-07-22 Outpatient PRATH, [facility] [id number] 472 [place] 00:00:00 00:00:00 CHARY [address] 2020-07-18 2020-07-18 Outpatient PRATH, [facility] [id number] 472 [place] 00:00:00 00:00:00 CHARY [address] [facility] 2020-07-17 2020-07-17 Outpatient PRATH, [facility] [id number] 580 [place] 00:00:00 00:00:00 CHARY [address] 2020-07-17 2020-07-17 Outpatient PRATH, [facility] [id number] 574 [place] 00:00:00 00:00:00 CHARY [address] [facility] 2020-07-15 2020-07-15 Outpatient PRATH, [facility] [id number] 469 [place] 00:00:00 00:00:00 CHARY [address] 2020-07-09 2020-07-10 Outpatient NANGIA, [place] [id number] 099 [place] 00:00:00 00:00:00 MALGORZATA [address] 2020-07-08 2020-07-08 Outpatient PRATH, [facility] [id number] 469 [place] 00:00:00 00:00:00 CHARY [address] [facility] 2020-07-04 2020-07-04 Outpatient PRATH, [facility] [id number] 704 [place] 00:00:00 00:00:00 CHARY [address] [facility] 2020-07-01 2020-07-01 Outpatient PRATH, [facility] [id number] 704 [place] 00:00:00 00:00:00 CHARY [address] [facility] 2020-07-01 2020-07-01 Outpatient PRATH, [facility] [id number] 160 [place] 00:00:00 00:00:00 CHARY [address] [facility] 2020-06-27 2020-06-27 Outpatient PRATH, [facility] [id number] 704 [place] 00:00:00 00:00:00 CHARY [address] 2020-06-24 2020-06-24 Outpatient PRATH, [facility] [id number] 704 [place] 00:00:00 00:00:00 CHARY [address] [facility] 2020-06-24 2020-06-24 Outpatient PRATH, [facility] [id number] 162 [place] 00:00:00 00:00:00 CHARY [address] [facility] 2020-06-24 2020-06-24 Outpatient PRATH, [facility] [id number] 155 [place] 00:00:00 00:00:00 CHARY [address] [facility] 2020-06-20 2020-06-20 Outpatient DARCOURT, [facility] [id number] [place] 00:00:00 00:00:00 BYRON [address] 2020-06-16 2020-06-18 Inpatient NASEERULLAH [facility] [id number] [place] 00:00:00 00:00:00 , KURTIS [address] 2020-06-16 2020-06-16 Outpatient PRATH, [facility] [id number] 662 [place] 00:00:00 00:00:00 CHARY [address] [facility] 2020-06-13 2020-06-13 Outpatient PRATH, [facility] [id number] 656 [place] 00:00:00 00:00:00 CHARY [address] 2020-06-10 2020-06-10 Outpatient DARCOURT, [facility] [id number] 39636 [place] 00:00:00 00:00:00 BYRON [address] 2020-06-05 2020-06-05 Outpatient DARCOURT, [facility] [id number] [place] 00:00:00 00:00:00 BYRON [address] 2020-06-05 2020-06-05 Outpatient PRATH, [facility] [id number] 954 [place] 00:00:00 00:00:00 CHARY [address] [facility] 2020-06-03 2020-06-03 Outpatient DARCOURT, [facility] [id number] 98577 [place] 00:00:00 00:00:00 BYRON [address] 2020-05-30 2020-05-30 Outpatient DARCOURT, [facility] [id number] 96792 [place] 00:00:00 00:00:00 BYRON [address] [facility] 2020-05-20 2020-05-29 Inpatient PADRON, [facility] [id number] 02 [place] 00:00:00 00:00:00 NEMESIO [address] [facility] 2020-05-16 2020-05-16 Outpatient DARCOURT, [facility] [id number] 81208 [place] 00:00:00 00:00:00 BYRON [address] 2020-05-13 2020-05-13 Outpatient DARCOURT, [facility] [id number] 41248 [place] 00:00:00 00:00:00 BYRON [address] 2020-05-09 2020-05-09 Outpatient DARCOURT, [facility] [id number] 28090 [place] 00:00:00 00:00:00 BYRON [address] [facility] 2020-05-06 2020-05-06 Outpatient DARCOURT, [facility] [id number] 18828 [place] 00:00:00 00:00:00 BYRON [address] 2020-05-05 2020-05-05 Outpatient ALF [facility] [id number] [place] 00:00:00 00:00:00 BYRON [address] 2020-05-01 2020-05-02 Inpatient LUIS FOURNIER [facility] [id number] [place] 00:00:00 00:00:[address] [facility] 2020-04-30 2020-04-30 Outpatient ALF [facility] [id number] 65824 [place] 00:00:00 00:00:00 BYRON [address] 2020-04-14 2020-04-18 Inpatient IVETT ADAMS [place] [id number] 49382 [place] 00:00:00 00:00:[address] 2016-04-15 2016-04-15 Emergency ROBIN CARREON [facility] [id number] 9216 [place] 00:00:00 00:00:[address] Results Test Description Test Time Test Comments Results Result Comments Source SARS-CoV-2 (COVID-19) RNA [Presence] in Respiratory sp ecimen by 2020-06-17 06:04:12 SHANTELLE with probe detection Test Item Value Reference Range Interpretation Comme nts SARS-CoV-2 (COVID-19) RNA [Presence] in Respiratory Not detected No t-Detected specimen by SHANTELLE with probe detection (test code = 41973-6) SARS-CoV-2 (COVID-19) RNA [Presence] in Respiratory specimen by SHANTELLE with probe [id number] 02:52:50 Test Item Value Reference Range Interpretation Comments SARS-CoV-2 (COVID-19) RNA Not detected Not-Detected [Presence] in Respiratory specimen by SHANTELLE with probe detection (test code = 51198-8) SARS-CoV-2 (COVID-19) RNA [Presence] in Respiratory specimen by SHANTELLE with probe [id number] 01:01:51 Test Item Value Reference Range Interpretation Comments SARS-CoV-2 (COVID-19) RNA Not detected Not-Detected [Presence] in Respiratory specimen by SHANTELLE with probe detection (test code = 23422-2) SARS-CoV-2 (COVID-19) RNA [Presence] in Respiratory specimen by SHANTELLE with probe [id number] 16:04:37 Test Item Value Reference Range Interpretation Comments SARS-CoV-2 (COVID-19) RNA Not detected Not-Detected [Presence] in Respiratory specimen by SHANTELLE with probe detection (test code = 78021-3)
--- NOTE | 2022-05-08 12:14 | RAD REPORT ---
EXAM DESCRIPTION: CT - Head Brain Wo Cont - 05/08/2022 12:00 pm CLINICAL HISTORY: Headache, new or worsening COMPARISON: Head Brain Wo Cont dated 07/25/2016 TECHNIQUE: Axial 5 mm thick images of the head were obtained without IV contrast. All CT scans are performed using dose optimization technique as appropriate and may include automated exposure control or mA/KV adjustment according to patient size. FINDINGS: No intracranial hemorrhage, mass, edema or shift of mid-line structures. No acute infarcti on changes seen. No abnormal extra-axial fluid collections. Ventricles are normal. Mastoid air cells and visualized portions of the paranasal sinuses are clear. No acute bony findings. No significant change from comparison. IMPRESSION: Negative non-contrast CT head examination.
[2022-05-08] MEDS ORDERED: NA CHLORIDE 0.9% 1,000 ML ONE (12:15)
[2022-05-08] MEDS ORDERED: KETOROLAC 30 MG/ML INJ ONE (12:33)
[2022-05-08] MEDS ORDERED: METOCLOPRAMIDE 10 MG/2mL INJ ONE (12:33)
[2022-05-08] MEDS ORDERED: DIPHENHYDRAMINE 50 MG/ML VIAL ONE (12:33)
[2022-05-08] MEDS ORDERED: NA CHLORIDE 0.9% 100 ML ONE (12:34)
[2022-05-08 13:05] LABS: Hematocrit 30.2 % (36.0-45.0); MCV 109.6 fL (80-100); MPV 8.2 fL (7.6-11.3); RBC Red Blood Cell Count 2.75 M/uL (3.86-4.86)
[2022-05-08 13:34] LABS: ALT/SGPT 31 U/L (12-78); AST/SGOT 19 U/L (15-37); Albumin 4.1 g/dL (3.4-5.0); Alkaline Phosphatase 135 U/L (45-117); BUN Blood Urea Nitrogen 18 mg/dL (7-18); Bicarbonate 33 mmol/L (21-32); Bilirubin Direct 0.3 mg/dL (0-0.2); Bilirubin Total 1.3 mg/dL (0.2-1.0); Glomerular Filtration Rate 82 ml/min (=/>90); Glucose Level 157 mg/dL (74-106); Lipase 81 U/L (73-393); Magnesium 2.5 mg/dL (1.8-2.4); Potassium 3.2 mmol/L (3.5-5.1); Protein, Total 7.3 g/dL (6.4-8.2); Sodium Level 144 mmol/L (136-145)
[2022-05-08 13:40] LABS: Anisocytosis 1+; Blood Morphology Comment NOTED (NOT SEEN); Macrocytosis 2+; Platelet Estimate DECR; Polychromasia SLIGHT
[2022-05-08 14:17] LABS: Urine Blood Negative (Negative); Urine Glucose Negative (Negative); Urine Protein Negative (Negative); Urine Specific Gravity 1.015 (1.005-1.030); Urine pH 6.5 (5.0-7.0)
[2022-05-08 14:53] LABS: Urine Bacteria <20 /HPF (<20); Urine RBC <5 /HPF (None Seen)
--- NOTE | 2022-05-08 15:11 | ER ---
Nurse's Notes [facility] Name: Caroline Newberry Age: 66 yrs Sex: Female : 1955 Arrival Date: 05/08/2022 Time: 10:40 Bed 14 Private MD: Diagnosis: Hyperglycemia, unspecified;Headache;Anemia in other chronic diseases classified elsewhere;Hypokalemia Presentation: 05/08 11:05 Chief complaint: Patient states: just started taking steroids a few days ago because I iw have Lupus and my head is hurting my blood pressure rises , the headache is unbearable and my sugar samantha rockets when I eat , was prescribed steroid by Dr. Matute. Coronavirus screen: At this time, the client does not indicate any symptoms associated with coronavirus-19. Ebola Screen: Patient negative for fever greater than or equal to 101.5 degrees Fahrenheit, and additional compatible Ebola Virus Disease symptoms Patient denies exposure to infectious person. Patient denies travel to an Ebola-affected area in the 21 days before illness onset. No symptoms or risks identified at this time. Initial Sepsis Screen: Does the patient meet any 2 criteria? No. Patient's initial sepsis screen is negative. Does the patient have a suspected source of infection? No. Patient's initial sepsis screen is negative. Risk Assessment: Do you want to hurt yourself or someone else? Patient reports no desire to harm self or others. Onset of symptoms was May 08, 2022. 11:05 Method Of Arrival: Ambulatory iw 11:05 Acuity: LOLITA 3 iw Triage Assessment: 15:26 Headache History: Denies prior headaches. General: Appears in no apparent distress. bm7 comfortable, well groomed, well developed. Pain: Pain currently is 2 out of 10 on a pain scale. Pain began gradually, Also complains of photophobia. Historical: - Allergies: 11:08 Sulfa (Sulfonamide Antibiotics); iw - Home Meds: 11:08 amlodipine 5 mg oral tab once daily [Active]; prednisone 20 mg Oral tab 3 tabs once iw daily [Active]; - PMHx: 11:08 Hypertension; iw - Immunization history:: Adult Immunizations up to date. - Social history:: Patient/guardian denies using tobacco products, Smoking status: unknown. Screenin:30 Abuse screen: Denies threats or abuse. Nutritional screening: No deficits noted. bm7 Tuberculosis screening: No symptoms or risk factors identified. Fall Risk None identified. Assessment: 12:30 Reassessment: Patient and/or family updated on plan of care and expected duration. Pain bm7 level reassessed. Patient is alert, oriented x 3, equal unlabored respirations, skin warm/dry/pink. 12:32 Reassessment: patient refuses benadryl and Reglan. Patient says the benadryl will make bm7 her sleepy and the reglan is not needed. 13:12 Reassessment: Patient and/or family updated on plan of care and expected duration. Pain bm7 level reassessed. Patient is alert, oriented x 3, equal unlabored respirations, skin warm/dry/pink. 13:44 Reassessment: Patient and/or family updated on plan of care and expected duration. Pain bm7 level reassessed. Patient is alert, oriented x 3, equal unlabored respirations, skin warm/dry/pink. 14:53 Reassessment: Patient and/or family updated on plan of care and expected duration. Pain bm7 level reassessed. Patient is alert, oriented x 3, equal unlabored respirations, skin warm/dry/pink. 15:02 Reassessment: PA at bedside to re-assess. bm7 15:24 General: Appears in no apparent distress. comfortable, Behavior is calm, cooperative, bm7 appropriate for age. Pain: Complains of pain in forehead Pain does not radiate. Neuro: Level of Consciousness is awake, alert, obeys commands, Oriented to person, place, time, situation, Machine Made Shoe Unit Worker are equal bilaterally Moves all extremities. Speech is normal, Facial symmetry appears normal, Pupils are PERRLA, Reports headache frontal area. Cardiovascular: No deficits noted. Respiratory: No deficits noted. GI: No deficits noted. No signs and/or symptoms were reported involving the gastrointestinal system. : No deficits noted. No signs and/or symptoms were reported regarding the genitourinary system. EENT: No deficits noted. No signs and/or symptoms were reported regarding the EENT system. Derm: No deficits noted. No signs and/or symptoms reported regarding the dermatologic system. Musculoskeletal: No deficits noted. No signs and/or symptoms reported regarding the musculoskeletal system. Vital Signs: 11:05 BP 139 / 78; Pulse 75; Resp 16; Temp 98.1(O); Pulse Ox 100% on R/A; iw 11:34 BP 147 / 63; Pulse 62; Resp 16; Temp 98.2(TE); Pulse Ox 100% on R/A; Pain 6/10; bm7 12:30 BP 147 / 65; Pulse 57; Resp 16; Pulse Ox 100% on R/A; Pain 5/10; bm7 13:12 BP 144 / 72; Pulse 61; Resp 16; Pulse Ox 100% on R/A; Pain 2/10; bm7 14:53 BP 136 / 74; Pulse 66; Resp 16; Pulse Ox 100% on R/A; Pain 1/10; bm7 ED Course: 10:40 Patient arrived in ED. as 10:52 Trev Giang PA is PHCP. cp 10:52 Unique Vera MD is Attending Physician. cp 11:08 Triage completed. iw 11:08 Arm band placed on. iw 11:34 Missed attempt(s): 20 gauge in right antecubital area. 22 gauge in right forearm. bm7 Bleeding controlled, band aid applied, catheter tip intact. 11:57 Initial lab(s) drawn, by me, sent to lab. Inserted saline lock: 22 gauge in left wrist, jw7 using aseptic technique. Blood collected. Missed attempt(s): 20 gauge in left antecubital area. Bleeding controlled, band aid applied, catheter tip intact. 11:58 Basic Metabolic Panel Sent. jw7 11:58 CBC with Diff Sent. jw7 11:58 LFT's Sent. jw7 11:58 Magnesium Sent. jw7 11:59 Yolanda Armando, RN is Primary Nurse. bm7 11:[address] bm7 12:01 Head Brain Wo Cont In Process Unspecified. EDMS 12:30 No apparent distress. Resting quietly. Awaiting lab results. bm7 12:30 Patient has correct armband on for positive identification. Placed in gown. Bed in low bm7 position. Call light in reach. Side rails up X 1. Client placed on continuous cardiac and pulse oximetry monitoring. NIBP monitoring applied. cardiac monitor on. Warm blanket given. 12:30 Lab(s) recollected, by blender laborer. bm7 13:44 No provider procedures requiring assistance completed. bm7 14:04 CT Head Brain wo Cont Sent. bm7 14:05 Urine collected: clean catch specimen, clear. bm7 14:06 Assisted to bathroom. bm7 15:24 IV discontinued, intact, bleeding controlled, No redness/swelling at site. Pressure bm7 dressing applied. Administered Medications: 12:17 Drug: NS 0.9% 500 ml Route: IV; Rate: bolus; Site: left hand; bm7 14:04 Follow up: IV Status: Completed infusion; IV Intake: 500ml bm7 12:30 Drug: Ketorolac 15 mg Route: IVP; Site: left hand; bm7 14:04 Follow up: Response: Pain is decreased bm7 12:30 Not Given (Patient Refused): Reglan (metoCLOPramide) 10 mg IVP once; over 1 to 2 minutesbm7 12:30 Not Given (Patient Refused): Benadryl (diphenhydrAMINE) 25 mg IVP once bm7 14:04 Drug: NS 0.9% 500 ml Route: IV; Rate: 125 ml/hr; Site: left hand; bm7 15:27 Follow up: IV Status: Completed infusion; IV Intake: 300ml bm7 Medication: 12:30 VIS not applicable for this client. bm7 Point of Care Testing: Blood Glucose: 11:35 Blood Glucose: 136 mg/dL; bm7 Ranges: Intake: 14:04 IV: 500ml; Total: 500ml. bm7 15:27 IV: 300ml; Total: 800ml. bm7 Outcome: 15:11 Discharge ordered by MD. faizan 15:24 Discharged to home ambulatory. bm7 15:24 Condition: improved 15:24 Discharge instructions given to patient, Instructed on discharge instructions, follow up and referral plans. medication usage, Demonstrated understanding of instructions, follow-up care, medications, Prescriptions given X 3. 15:27 Patient left the ED. bm7 Signatures: Dispatcher [employer] LUIS FERNANDOMS Nusrat Hernandez Irene, RN RN iw Trev Giang PA PA cp McCarthy, Brittany, RN RN 7 Jaja Stephenson jw7 Corrections: (The following items were deleted from the chart) 11:15 11:05 BP 139 / 78; Pulse 75bpm; Resp 16bpm; Pulse Ox 100% RA; iw iw
--- NOTE | 2022-05-08 15:11 | EDPHYS ---
Physician Documentation [facility] Name: Caroline Newberry Age: 66 yrs Sex: Female : 1955 Arrival Date: 05/08/2022 Time: 10:40 Bed 14 Private MD: ED Physician Unique Vera HPI: 05/08 11:30 This 66 yrs old Black Female presents to ER via Ambulatory with complaints of Headache, cp High Blood Sugar. 11:30 The patient complains of pain to the top of head and forehead. The patient describes cp the headache as aching, constant. 11:30 Onset: The symptoms/episode began/occurred 3 day(s) ago. Associated signs and symptoms: cp Pertinent negatives: altered mental status, fever, neck stiffness, paresthesias, Photophobia sinus congestion, sinus tenderness, vision changes, vomiting, weakness. Severity of symptoms: in the emergency department the pain is unchanged, despite home interventions. Patient with history of Lupus and was recently started on high dose steroids. Patient reports elevated blood glucose readings since starting steroids and having history of diabetes. Patient reports she was able to discontinue diabetes medications after weight loss. Historical: - Allergies: 11:08 Sulfa (Sulfonamide Antibiotics); iw - Home Meds: 11:08 amlodipine 5 mg oral tab once daily [Active]; prednisone 20 mg Oral tab 3 tabs once iw daily [Active]; - PMHx: 11:08 Hypertension; iw - Immunization history:: Adult Immunizations up to date. - Social history:: Patient/guardian denies using tobacco products, Smoking status: unknown. ROS: 11:35 Constitutional: Negative for body aches, chills, fever, poor PO intake. cp 11:35 Eyes: Negative for injury, pain, redness, and discharge. cp 11:35 ENT: Negative for drainage from ear(s), ear pain, sore throat, difficulty swallowing, difficulty handling secretions. 11:35 Neck: Negative for pain with movement, pain at rest, stiffness. 11:35 Cardiovascular: Negative for chest pain, edema, palpitations. 11:35 Respiratory: Negative for cough, shortness of breath, wheezing. 11:35 Abdomen/GI: Negative for abdominal pain, nausea, vomiting, and diarrhea. 11:35 : Negative for urinary symptoms. 11:35 Neuro: Positive for headache, Negative for altered mental status, numbness, syncope, weakness. 11:35 All other systems are negative. Exam: 11:40 Constitutional: The patient appears in no acute distress, alert, awake, cp non-diaphoretic, non-toxic, well developed, well nourished. 11:40 Head/Face: Normocephalic, atraumatic. cp 11:40 Eyes: Periorbital structures: appear normal, Pupils: equal, round, and reactive to light and accomodation, Extraocular movements: intact throughout, Conjunctiva: normal, no exudate, no injection, Sclera: no appreciated abnormality, Lids and lashes: appear normal, bilaterally. 11:40 ENT: External ear(s): are unremarkable, Nose: is normal, Mouth: Lips: moist, Oral mucosa: pink and intact, moist, Posterior pharynx: Airway: no evidence of obstruction, patent. 11:40 Neck: ROM/movement: is normal, is supple, no meningismus, no nuchal rigidity. 11:40 Chest/axilla: Inspection: normal, Palpation: is normal, no crepitus, no tenderness. 11:40 Cardiovascular: Rate: normal, Rhythm: regular, Edema: is not appreciated, JVD: is not appreciated. 11:40 Respiratory: the patient does not display signs of respiratory distress, Respirations: normal, no use of accessory muscles, no retractions, labored breathing, is not present, Breath sounds: are clear throughout, no decreased breath sounds, no stridor, no wheezing. 11:40 Abdomen/GI: Inspection: abdomen appears normal, Palpation: abdomen is soft and non-tender, in all quadrants. 11:40 Back: pain, is absent, ROM is normal. 11:40 Skin: cellulitis, is not appreciated, no rash present. 11:40 Neuro: Orientation: to person, place \T\ time. Mentation: is normal, Cerebellar function: is grossly normal, Motor: moves all fours, strength is normal, Sensation: is normal. 12:12 ECG was reviewed by the Attending Physician. cp Vital Signs: 11:05 BP 139 / 78; Pulse 75; Resp 16; Temp 98.1(O); Pulse Ox 100% on R/A; iw 11:34 BP 147 / 63; Pulse 62; Resp 16; Temp 98.2(TE); Pulse Ox 100% on R/A; Pain 6/10; bm7 12:30 BP 147 / 65; Pulse 57; Resp 16; Pulse Ox 100% on R/A; Pain 5/10; bm7 13:12 BP 144 / 72; Pulse 61; Resp 16; Pulse Ox 100% on R/A; Pain 2/10; bm7 14:53 BP 136 / 74; Pulse 66; Resp 16; Pulse Ox 100% on R/A; Pain 1/10; bm7 MDM: 11:11 Patient medically screened. cp 14:00 Differential diagnosis: intracerebral hemorrhage, meningitis, meningoencephalitis, cp migraine, sinusitis, tension headache. 15:10 Data reviewed: vital signs, nurses notes, lab test result(s), EKG, radiologic studies, cp CT scan, and as a result, I will discharge patient. 15:10 Test interpretation: by ED physician or midlevel provider: ECG. cp 15:10 Counseling: I had a detailed discussion with the patient and/or guardian regarding: the cp historical points, exam findings, and any diagnostic results supporting the discharge/admit diagnosis, the presence of at least one elevated blood pressure reading (>120/80) during this emergency department visit, lab results, radiology results, the need for outpatient follow up, a family practitioner, to return to the emergency department if symptoms worsen or persist or if there are any questions or concerns that arise at home. Response to treatment: the patient's symptoms have mildly improved after treatment, and as a result, I will discharge patient. 05/08 11:25 Order name: Basic Metabolic Panel; Complete Time: 14:49 cp 05/08 14:15 Interpretation: Normal except: K 3.2; CL 108; CO2 33; GLUC 157; GFR 82. cp 05/08 11:25 Order name: CBC with Diff; Complete Time: 14:15 cp 05/08 14:17 Interpretation: Normal except: WBC 2.00; RBC 2.75; HGB 10.3; HCT 30.2; MCV 109.6; MCH cp 37.4; RDW 20.2. 05/08 11:25 Order name: LFT's; Complete Time: 14:49 cp 05/08 14:17 Interpretation: Normal except: ALK 135; BILIT 1.3; BILID 0.3. cp 05/08 11:25 Order name: Magnesium; Complete Time: 14:49 cp 05/08 14:49 Interpretation: MG 2.5; Reviewed. 05/08 11:25 Order name: Ketone, Serum; Complete Time: 14:49 cp 05/08 14:50 Interpretation: ACET NEG; Reviewed. cp 05/08 11:25 Order name: Lipase; Complete Time: 14:49 cp 05/08 14:50 Interpretation: LIP 81; Reviewed. 05/08 11:38 Order name: CT Head Brain wo Cont cp 05/08 11:38 Order name: Urine Microscopic Only; Complete Time: 14:57 cp 05/08 14:57 Interpretation: Reviewed. cp 05/08 11:42 Order name: Head Brain Wo Cont; Complete Time: 12:18 EDMS 05/08 12:18 Interpretation: Report reviewed. 05/08 12:41 Order name: Glucose, Ancillary Testing; Complete Time: 14:15 EDMS 05/08 14:17 Interpretation: Abnormal: GLUC,ANCIL 136. 05/08 13:41 Order name: Manual Differential; Complete Time: 14:15 EDMS 05/08 14:51 Interpretation: Normal except: LYM 43. cp 05/08 14:17 Order name: Urine Dipstick-Ancillary; Complete Time: 14:49 EDMS 05/08 14:50 Interpretation: Reviewed. 05/08 11:12 Order name: Accucheck Blood Glucose; Complete Time: 12:17 05/08 11:25 Order name: EKG; Complete Time: 11:26 05/08 11:25 Order name: Cardiac monitoring; Complete Time: 11:59 05/08 11:25 Order name: EKG - Nurse/Tech; Complete Time: 11:59 05/08 11:25 Order name: IV Saline Lock; Complete Time: 11:58 cp 05/08 11:25 Order name: Labs collected and sent; Complete Time: 11:58 05/08 11:25 Order name: O2 Per Protocol; Complete Time: 11:34 cp 05/08 11:25 Order name: O2 Sat Monitoring; Complete Time: 11:34 cp 05/08 11:38 Order name: Urine Dipstick-Ancillary (obtain specimen); Complete Time: 14:04 05/08 12:08 Order name: Labs - recollect needed: recollect green and purple; Complete Time: 12:21 eb EC:12 Rate is 56 beats/min. Rhythm is regular. AL interval is normal. QRS interval is normal. cp QT interval is normal. T waves are Inverted in lead aVR. Interpreted by me. Reviewed by me. Administered Medications: 12:17 Drug: NS 0.9% 500 ml Route: IV; Rate: bolus; Site: left hand; bm7 14:04 Follow up: IV Status: Completed infusion; IV Intake: 500ml bm7 12:30 Drug: Ketorolac 15 mg Route: IVP; Site: left hand; bm7 14:04 Follow up: Response: Pain is decreased bm7 12:30 Not Given (Patient Refused): Reglan (metoCLOPramide) 10 mg IVP once; over 1 to 2 minutesbm7 12:30 Not Given (Patient Refused): Benadryl (diphenhydrAMINE) 25 mg IVP once bm7 14:04 Drug: NS 0.9% 500 ml Route: IV; Rate: 125 ml/hr; Site: left hand; bm7 15:27 Follow up: IV Status: Completed infusion; IV Intake: 300ml bm7 Point of Care Testing: Blood Glucose: 11:35 Blood Glucose: 136 mg/dL; bm7 Ranges: Critical Glucose Levels:Adult <50 mg/dl or >400 mg/dl <40 mg/dl or >180 mg/dl Disposition: 18:07 Co-signature as Attending Physician, Unique Vera MD STAFF ATTESTATION STATEMENT: I sd2 was immediately available onsite in the emergency department for consultation in the care of this patient. I did not see or examine this patient. Unique Vera MD. Disposition Summary: 05/08/22 15:11 Discharge Ordered Location: Home cp Problem: new cp Symptoms: have improved cp Condition: Stable cp Diagnosis - Hyperglycemia, unspecified cp - Headache cp - Anemia in other chronic diseases classified elsewhere cp - Hypokalemia cp Followup: cp - With: Private Physician - When: 2 - 3 days - Reason: Recheck today's complaints Discharge Instructions: - Discharge Summary Sheet cp - Anemia cp - Potassium Content of Foods cp - General Headache Without Cause cp - Hyperglycemia cp - Hypokalemia cp Forms: - Medication Reconciliation Form cp - Thank You Letter cp - Antibiotic Education cp - Prescription Opioid Use cp Prescriptions: - Potassium Chloride 10 mEq Oral capsule, extended release - take 1 tablet by ORAL route once daily; 5 tablet; Refills: 0, Product Selection cp Permitted - Metformin 500 mg Oral Tablet - take 1 tablet by ORAL route once daily for 7 days Then take 1 tablet with cp morning meals AND evening meals; 21 tablet; Refills: 0, Product Selection Permitted - Fioricet 50-300-40 mg Oral capsule - take 1 capsule by ORAL route every 4 hours as needed; 20 capsule; Refills: 0, cp Product Selection Permitted Signatures: Dispatcher [employer] Vicky Rose, RN RN iw Trev Giang PA PA cp Botello, Elizabeth eb McCarthy, Brittany, RN RN bm7 Unique Vera MD MD sd2
[2022-05-08 15:48] VITALS: O2SAT 100
[2022-05-08 15:51] VITALS: TEMP 98.2
[2022-05-08 16:12] VITALS: BP 136/74
--- NOTE | 2022-05-10 08:13 | EKG ---
Test Date: 2022-05-08 Test Time: 12:07:23 [place] Press Operator: MIO MEASUREMENT RESULTS: Intervals: Rate: 56 CA: 170 QRSD: 84 QT: 406 QTc: 391 [place]: P: 71 CA: 170 QRS: 52 T: 44 INTERPRETIVE STATEMENTS: Sinus bradycardia Otherwise normal ECG Compared to ECG 07/25/2016 13:48:36 Sinus rhythm no longer present Electronically Signed On 05-10-22 08:06:56 CDT by Micheal Castaneda
== END 2022-05-08 15:27 | disposition home or self-care (01) ==
LOC: ER 10:35
DX: R73.9 Hyperglycemia, unspecified (principal); E87.6 Hypokalemia; D64.9 Anemia, unspecified; I10 Essential (primary) hypertension; Z88.2 Allergy status to sulfonamides
CPT/HCPCS: 96361; 93005; 85025; 80048; 36415; 82010; 83735; 82947; 80076; 83690; 70450; 96374; 99285; J2765; J1200; J7030; 81003; 81015

== ENCOUNTER 2022-06-04 12:36 | Emergency (ER) | payer OTHER ==
--- OUTSIDE RECORDS SUMMARY | 2022-06-04 12:46 | XMS REPORT | Continuity of Care Document ---
:1955 Author Organization [facility] t Address [address] [place] [address] Care Team Providers Name Role Phone Brittany Sloan Aliyah Primary Care Physician [phone] Leslie George MA Attending Clinician Unavailable Bella Peace RN Attending Clinician Unavailable Ariel GAGNON, Janice Attending Clinician Unavailable Chary Perales MD Attending Clinician Kirk Conway MD Attending Clinician Doctor Unassigned, [place] Attending Clinician Unavailable Shanell Costa RN Attending Clinician Unavailable Marisa RP, Oneyda Teague Attending Clinician Unavailable Igor RPLeyla Attending Clinician Unavailable Gallito RP, Chelsieili Attending Clinician Unavailable Zaheer PRAKASHLinda Attending Clinician Unavailable Colin Sherman Attending Clinician Wero GAGNON, Art Attending Clinician Unavailable Candy Doss Attending Clinician NOE CASTELAN Attending Clinician Unavailable Nurse, Adc Pob Immunization Attending Clinician Unavailable Noe Castelan DO Attending Clinician Surekha Silver RN Attending Clinician Unavailable LETICIA CAI Attending Clinician Unavailable LETICIA CAI Attending Clinician Unavailable CANDY RAMOS Attending Clinician Unavailable Pob, Adc Lab Main Attending Clinician Unavailable Oziel Ruggiero MD Attending Clinician MALGORZATA ORNELAS Attending Clinician Unavailable BYRON MILNER Attending Clinician Unavailable KURTIS CAMPOVERDE Attending Clinician Unavailable DO MELVI YOST Attending Clinician Unavailable NEMESIO PADRON Attending Clinician Unavailable MD ODETTE RODRIGUEZ Attending Clinician Unavailable LUIS FOURNIER Attending Clinician Unavailable MD LUIS FOURNIER [...] Unavailable IVETT ADAMS Admitting Clinician Unavailable MD ANGIE ITChandler Admitting Clinician Unavailable ROBIN CARROEN Admitting Clinician Unavailable Payers Payer Name Policy Type Policy Number Effective Date Expiration Date S ource Problems Condition Condition Condition Status Onset Resolution Last Treating Co mments Source Name Details Category Date Date Treatment Clinician Date Medical Medical Disease Active Methodi non-compli non-compli 01-08 [facility] 00 l Pseudodeme Pseudodeme Disease Active 2019-09 M ethodi ntia ntia 11-16 00:00: Hospita 00 l 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 [facility] loss of loss of 09-30 unknown unknown 00:00: Hospita cause cause 00 l Anorexia Anorexia Disease Active 2019-[address] 00:00: Hospita 00 l Bleeding Bleeding Disease Active 2019-09 Metho di gums gums 0 00:00: Hospita 00 l Thrombocyt Thrombocyt Disease Active 2019-09 M ethodi openia openia 0 st 00:00: Hospita 00 l ABDOUL (acute ABDOUL (acute Disease Active 2019-09 M ethodi kidney kidney 0 injury) injury) 00:00: Hospita 00 l Type 2 Type 2 Disease Active 2019-09 [facility] diabetes diabetes 0- st mellitus mellitus 00:00: Hospit a without without 00 l complicati complicati on, with on, with long-term long-term current current use of use of insulin insulin Hyperglyce Hyperglyce Disease Active M pilar howard howard 06-16 st 00:00: Hospita 00 l Aplastic Aplastic Disease Active Overview: Me thodi anemia anemia 05-[address] 00:00: g of this Hospita 00 note l might be different from the original. Continue treatment with cyclospor ine and steroids. Will add Promacta tomorrow. Cyclospor ine levels tomorrow. Infection prophylax is adequate. Minimize transfusi ons as much as possible (only If platelet <10k or bleeding and hg <7). She will need blood in the future. 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 05-09 st t anemia t anemia 00:00: Hospit a 00 l Easy Easy Disease Active Methodi bruising bruising 05-09 st 00:00: Hospita 00 l Pancytopen Pancytopen Disease Active M ethodi ia ia 04-14 st 00:00: Hospita 00 l Ptosis of Ptosis of Problem Active 2021-12-25 [facility] right right 22:58:21 l upper upper [place] eyelid eyelid Active Problem 12/25/2021 [facility] Systemic Systemic Problem Active 2021-12-25 [facility] lupus lupus 22:58:21 l erythemato erythemato He rmann don don (disorder) (disorder) Active Problem 12/25/2021 [facility] Diabetes Diabetes Problem Active 2021-12-25 [facility] mellitus mellitus 22:58:21 l type 2 type 2 Can (disorder) (disorder) Active Problem 12/25/2021 [facility] Hypertensi Hypertens Problem Active 2021-12-25 Memoria ve micki 22:58:21 l disorder, disorder, Herm kali systemic systemic arterial arterial (disorder) (disorder) Active Problem 12/25/2021 [facility] No known No known Disease Unive rs active active ity of problems problems [facility] Allergies, Adverse Reactions, Alerts Allergy Allergy Status Severity Reaction(s) Onset Inactive Treating Comm ents Source Name Type Date Date Clinician Sulfa Propensi Active Unknown - Unive rs Dyne ty to See comments 04-14 ity of adverse 00:00: [place] reaction 00 Medical s Branch SULFA DRUG Active Unknown-Cmnt Univ ers DYNE 04-14 ity of 00:00: [place] 00 Medical Branch Sulfa Propensi Active Hives 2020-0 Methodi (Sulfona ty to 04-14 st mide adverse 00:00: Hospita Antibiot reaction 00 l ics) s to drug Sulfa Propensi Active Hives 2020-0 Univers (Sulfona ty to 04-14 ity of mide adverse 00:00: [place] Antibiot reaction 00 Medica l ics) s Branch Sulfa Propensi Active Hives 2020-0 Univers (Sulfona ty to 04-14 ity of mide adverse 00:00: [place] Antibiot reaction 00 Medica l ics) s Branch SULFA Drug Active High Hives 2020-0 Univers (SULFONA Class 04-14 ity of MIDE 00:00: [place] ANTIBIOT 00 Medical ICS) Branch sulfa sulfa Active [facility] drugs drugs l [place] Social History Social Habit Start Date Stop Date Quantity Comments Source Exposure to Not sure University SARS-CoV-2 [facility] (event) Branch Alcohol intake 2022-05-17 2022-05-17 Ex-drinker [facility] 00:00:00 00:00:00 (finding) Hospital Social History 2021-08-07 2021-08-07 [facility] 22:01:31 22:01:31 Alcohol Comment 2020-06-16 2020-06-16 OCCASIONAL [facility] 00:00:00 00:00:00 Hospital Tobacco use and 2020-04-14 2020-04-14 Smokeless tobacco Me thodist exposure 00:00:00 00:00:00 non-user Hospital Sex Ass[birth year] At [birth year] [facility] 00:[facility]:00 Hospital Smoking Status Start Date Stop Date Source Never smoked tobacco [facility] Medications Ordered Filled Start Stop Current Ordering Indication Dosage Frequency Signature Comments Components Source Medication Medication Date Date Medication? Clinician (SIG) Name Name metFORMIN Yes 500mg QD Take 1 Metho di (GLUCOPHAGE 9-[address] ) 500 mg 11:40: (500 mg Hospit a tablet 15 total) by l mouth daily with breakfast. eltrombopag Yes 50mg QD Take 1 Meth murray (PROMACTA) 9-15 tablet (50 st 50 MG 11:40: mg total) Hospita tablet 15 by mouth l daily. Administer on an empty stomach, 1 hour before or 2 hours after a meal. insulin Yes 10U QD Inject 10 Metho di GLARGINE 9-[address] (LANTUS) 11:40: under the Hosp yajaira 100 unit/mL 15 skin l injection daily. (vial) multivit-mi Yes 1{tbl} QD Take 1 Me thodi n-ferrous 9-[address] sulfate 12:44: mouth Hospita (One Daily 23 daily. l Multi-Vit w-Mineral) 4.5 mg iron powder in packet eltrombopag 2021- No [id number] 50mg QD Take 1 [facility] (PROMACTA) 03-19- tablet (50 st 50 MG 00:00: 04:59 mg total) Hospit a tablet 00 :00 by mouth l daily for 30 days. Administer on an empty stomach, 1 hour before or 2 hours after a meal. eltrombopag 2021- No [id number] 50mg QD Take 1 [facility]i (PROMACTA) 03-18 tablet (50 st 50 MG 00:00: 00:00 mg total) Hospit a tablet 00 :00 by mouth l daily for 30 days. Administer on an empty stomach, 1 hour before or 2 hours after a meal. eltrombopag 2021- No [id number] 50mg QD Take 1 Methodi (PROMACTA) 03-18-30 tablet (50 st 50 MG 00:00: 00:00 mg total) Hospit a tablet 00 :00 by mouth l daily for 30 days. Administer on an empty stomach, 1 hour before or 2 hours after a meal. eltrombopag 2021- No [id number] 50mg QD Take 1 [facility] (PROMACTA) 03-18-30 tablet (50 st 50 MG 00:00: 00:00 mg total) Hospit a tablet 00 :00 by mouth l daily for 30 days. Administer on an empty stomach, 1 hour before or 2 hours after a meal. danazoL 0 2021- No [id number] 200mg Q.5D Take 1 M ethodi (DANOCRINE) 608 07-[address] 200 MG 00:00: 04:59 (200 mg Hospita capsule 00 :00 total) by l mouth 2 (two) times a day for 30 days. rosuvastati Yes 5mg QD Take 5 mg M ethodi n (CRESTOR) 5-[address] 5 mg tablet 00:00: every Hospi ta 00 morning. l multivit-mi 2020-09 Yes 1{tbl} Take 1 Un cosme n-ferrous 1-12 tablet by ity o f sulfate 13:42: mouth [place] (ONE DAILY 50 every Medical [facility] 4[facility]5 mg iron PwPk multivit-mi 2020-09 Yes 1{tbl} Take 1 Un cosme n-ferrous 1-12 tablet by ity o f sulfate 13:42: mouth [place] (ONE DAILY 50 every Medical MULTI-VIT morning. [facility]-MINERAL) 4.5 mg iron PwPk multivit-mi 2020-09 Yes 1{tbl} Take 1 Un cosme n-ferrous 1-12 tablet by ity o f sulfate 13:42: mouth [place] (ONE DAILY 50 every Medical MULTI-VIT morning. [facility]-MINERAL) 4.5 mg iron PwPk multivit-mi 2020-09 Yes 1{tbl} Take 1 Un cosme n-ferrous 1-12 tablet by ity o f sulfate 13:42: mouth [place] (ONE DAILY 50 every Medical MULTI-VIT morning. [facility]-MINERAL) 4.5 mg iron PwPk multivit-mi 2020-09 Yes 1{tbl} Take 1 Un cosme n-ferrous 1-12 tablet by ity o f sulfate 13:42: mouth [place] (ONE DAILY 50 every Medical MULTI-VIT morning. [facility]-MINERAL) 4.5 mg iron PwPk multivit-mi 2020-09 Yes 1{tbl} Take 1 Un cosme n-ferrous 1-12 tablet by ity o f sulfate 13:42: mouth [place] (ONE DAILY 50 every Medical MULTI-VIT morning. [facility]-MINERAL) 4.5 mg iron PwPk multivit-mi 2020-09 Yes 1{tbl} Take 1 Un cosme n-ferrous 1-12 tablet by ity o f sulfate 13:42: mouth [place] (ONE DAILY 50 every Medical MULTI-VIT morning. Branch W-MINERAL) 4.5 mg iron PwPk multivit-mi 2020-09 Yes 1{tbl} Take 1 Un cosme n-ferrous 1-12 tablet by ity o f sulfate 13:42: mouth [place] (ONE DAILY 50 every Medical MULTI-VIT morning. Branch W-MINERAL) 4.5 mg iron PwPk amLODIPine 2020-09 Yes Univers 5 mg tablet 0-25 ity of 00:00: [place] [facility] amLODIPine 2020-09 Yes Univers 5 mg tablet 0-25 ity of 00:00: [place] [facility] amLODIPine 2020-09 Yes Univers 5 mg tablet 0-25 ity of 00:00: [place] [facility] amLODIPine 2020-09 Yes Univers 5 mg tablet 0-25 ity of 00:00: [place] [facility] amLODIPine 2020-09 Yes Univers 5 mg tablet 0-25 ity of 00:00: [place] [facility] amLODIPine 2020-09 Yes Univers 5 mg tablet 0-25 ity of 00:00: [place] [facility] amLODIPine 2020-09 Yes Univers 5 mg tablet 0-25 ity of 00:00: [place] [facility] amLODIPine 2020-09 Yes Univers 5 mg tablet 0-25 ity of 00:00: [place] [facility] traMADoL 50 2020- No [id number] 50mg Take 1 Uni vers mg tablet 7- 11-12 tablet by ity of 00:00: 00:00 [facility] 00 :00 every 6 Medical (six) Branch hours as needed for Pain (scale 7-10). Indication s: acute pain traMADoL 50 2020- No [id number] 50mg Take 1 Uni vers mg tablet 7-27 11-12 tablet by ity of 00:00: 00:00 mouth [place] 00 :00 every 6 Medical (six) Branch hours as needed for Pain (scale 7-10). Indication s: acute pain mirtazapine Yes 30mg QD Take 1 Meth murray (Remeron) 1-27 tablet (30 st 30 MG 00:00: mg total) Hospita tablet 00 by mouth l nightly as needed (sleep). cycloSPORIN No [id number] 50mg Q.5D Take 2 Methodi E 10-[address] (SandIMMUNE 00:00: 00:00 (50 mg Hos emmanuel ) 25 MG 00 :00 total) by l capsule mouth 2 (two) times a day. Take in combinatio n with 100mg capsults for total of 350mg BID cycloSPORIN 2021- No [id number] 300mg Q.5D Take 3 Methodi E 10-[address] (SandIMMUNE 00:00: 00:00 (300 mg Ho spita ) 100 MG 00 :00 total) by l capsule mouth 2 (two) times a day. Take in combinatio n with 25mgcapsul es for total of 350mg BID amLODIPine Yes [id number] 5mg QD Take 1 Methodi (NORVASC) 5 -25 tablet (5 st mg tablet 00:00: mg total) Hos emmanuel 00 by mouth l daily. famotidine 2019-09 Yes 40mg QD Take 1 Metho di (Pepcid) 40 -18 tablet (40 st MG tablet 00:00: mg total) Hos emmanuel 00 by mouth l daily. eltrombopag 2019-09 No [id number] 150mg QD Take 3 [facility] (PROMACTA) 10-[address] 50 MG 00:00: 00:00 (150 mg Hospita tablet 00 :00 total) by l mouth daily. Administer on an empty stomach, 1 hour before or 2 hours after a meal. valACYclovi 2019-09 No [id number] 500mg QD Take 1 Methodi r (Valtrex) 10-[address] 500 MG 00:00: 00:00 (500 mg Hospita tablet 00 :00 total) by l mouth daily. famotidine 2019-09 No 40mg Take 40 mg Univers 40 mg 10-06 by mouth. ity of tablet 00:00: 00:00 [place] 00 :00 [facility] Branch famotidine 2019-09 No 40mg Take 40 mg Univers 40 mg 10-0612 by mouth. ity of tablet 00:00: 00:00 [place] 00 :00 Medical Branch blood-gluco 2020-0 2020- No Use as Met hodi se meter 9-30 10-[address] kit 00:00: 04:59 Hospita 00 :00 l Immunizations Ordered Filled Immunization Date Status Comments Sourc e Immunization Name Name SARS-COV-2 COVID-19 2021-08-31 Completed Unive rsity of PFIZER VACCINE 00:00:00 [facility] SARS-COV-2 COVID-19 2021-08-31 Completed Unive rsity of PFIZER VACCINE 00:00:00 [facility] PFIZER COVID-19 2021-08-31 Completed [facility] MRNA VACCINATION 00:00:00 [facility] SARS-COV-2 COVID-19 2021-08-31 Completed Unive rsity of PFIZER VACCINE 00:00:00 [facility] FLUCELVAX QUAD PF 2021-07-[address] 00:00:00 [facility] Influenza Virus 2021-06-23 Completed Universit y of Vaccine 00:00:00 [facility] Influenza Virus 2021-06-23 Completed Universit y of Vaccine 00:00:00 [facility] Influenza Virus 2021-06-23 Completed Universit y of Vaccine 00:00:00 [facility] Influenza Virus 2021-06-23 Completed Universit y of Vaccine 00:00:00 [facility] Influenza Virus 2021-06-23 Completed Universit y of Vaccine 00:00:00 [facility] Influenza Virus 2021-06-23 Completed Universit y of Vaccine 00:00:00 [facility] Influenza Virus 2021-06-23 Completed Universit y of Vaccine 00:00:00 [facility] Influenza Virus 2021-06-23 Completed Universit y of Vaccine 00:00:00 [facility] Influenza, 2021-06-23 Completed [facility] Unspecified 00:00:00 [facility] SARS-COV-2 COVID-19 2021-01-02 Completed Unive rsity of PFIZER VACCINE 00:00:00 [facility] SARS-COV-2 COVID-19 2021-01-02 Completed Unive rsity of PFIZER VACCINE 00:00:00 [facility] SARS-COV-2 COVID-19 2021-01-02 Completed Unive rsity of PFIZER VACCINE 00:00:00 [facility] SARS-COV-2 COVID-19 2021-01-02 Completed Unive rsity of PFIZER VACCINE 00:00:00 [facility] SARS-COV-2 COVID-19 2021-01-02 Completed Unive rsity of PFIZER VACCINE 00:00:00 [facility] SARS-COV-2 COVID-19 2021-01-02 Completed Unive rsity of PFIZER VACCINE 00:00:00 [facility] SARS-COV-2 COVID-19 2021-01-02 Completed Unive rsity of PFIZER VACCINE 00:00:00 [facility] SARS-COV-2 COVID-19 2021-01-02 Completed Unive rsity of PFIZER VACCINE 00:00:00 [facility] PFIZER COVID-19 2021-01-02 Completed [facility] MRNA VACCINATION 00:00:00 [facility] SARS-COV-2 COVID-19 2020-12-11 Completed Unive rsity of PFIZER VACCINE 00:00:00 [facility] SARS-COV-2 COVID-19 2020-12-11 Completed Unive rsity of PFIZER VACCINE 00:00:00 [facility] SARS-COV-2 COVID-19 2020-12-11 Completed Unive rsity of PFIZER VACCINE 00:00:00 [facility] SARS-COV-2 COVID-19 2020-12-11 Completed Unive rsity of PFIZER VACCINE 00:00:00 [facility] SARS-COV-2 COVID-19 2020-12-11 Completed Unive rsity of PFIZER VACCINE 00:00:00 [facility] SARS-COV-2 COVID-19 2020-12-11 Completed Unive rsity of PFIZER VACCINE 00:00:00 [facility] SARS-COV-2 COVID-19 2020-12-11 Completed Unive rsity of PFIZER VACCINE 00:00:00 [facility] SARS-COV-2 COVID-19 2020-12-11 Completed Unive rsity of PFIZER VACCINE 00:00:00 [facility] PFIZER COVID-19 2020-12-11 Completed [facility] MRNA VACCINATION 00:00:00 [facility] Influenza Virus 2020-07-10 Completed Universit y of Vaccine Recomb Quad 00:00:00 [place] [facility] IM, Preserv and ABX Branc h [...] and ABX Branc h Free 18-64 YRS FLUCELVAX QUAD PF 2020-07-[address] 00:00:00 Hospital Vital Signs Vital Name Observation Time Observation Value Comments Source Systolic blood 2021-07-31 19:40:00 123 mm[Hg] Univer sity of pressure [facility] Diastolic blood 2021-07-31 19:40:00 68 mm[Hg] Unive rsity of pressure [facility] Heart rate 2021-07-31 19:40:00 74 /min [facility] Body temperature 2021-07-31 19:40:[address] [facility] height 2021-07-31 19:40:00 149.9 cm [facility] Body weight 2021-07-31 19:40:00 53.025 kg [facility] BMI 2021-07-31 19:40:00 23.61 kg/m2 [facility] Oxygen saturation in 2021-07-31 19:40:00 99 /min [facility] blood by [facility] Pulse oximetry Branch Systolic blood 2022-05-31 14:31:20 144 mm[Hg] [facility] Hospital pressure Diastolic blood 2022-05-31 14:31:20 63 mm[Hg] [facility] pressure Heart rate 2022-05-31 14:31:20 86 /min [facility] Body temperature 2022-05-31 14:31:20 36.78 Ai [facility] Respiratory rate 2022-05-31 14:31:20 16 /min [facility] Body height 2022-05-31 14:31:20 149.9 cm [facility] Body weight 2022-05-31 14:31:20 56.7 kg [facility] BMI 2022-05-31 14:31:20 25.25 kg/m2 [facility] Oxygen saturation in 2022-05-31 14:31:20 97 /min [facility] Arterial blood by Pulse oximetry Height 2021-10-27 15:02:00 154.94 cm [facility] Weight 2021-10-27 15:02:00 [facility] BMI Calculated 2021-10-27 15:02:00 [facility] Systolic (mm Hg) 2021-10-27 15:02:00 [facility] Diastolic (mm Hg) 2021-10-27 15:02:00 [facility] [place] Heart Rate 2021-10-27 15:02:00 [facility] Respitory Rate 2021-10-27 15:02:00 [facility] Procedures Procedure Date / Time Performing Clinician Source Performed TYPE AND SCREEN 2022-05-31 14:37:00 Chary Perales [facility]ital [facility] CBC HEMOGRAM 2022-05-31 14:37:00 Chary Perales [facility]ital [facility] COMPREHENSIVE METABOLIC 2022-05-31 14:37:00 [facility] ESTIMATED GFR 2022-05-31 14:37:00 Chary Perales [facility] SMEAR REVIEW 2022-05-31 14:37:00 Chary Perales spital [facility] TRANSFUSE PLATELET 2022-05-28 16:39:00 [facility] PHERESIS [facility] TYPE AND SCREEN 2022-05-28 15:21:00 Chary Perales spital [facility] CBC HEMOGRAM 2022-05-28 15:21:00 Prath, Chary Chavez spital [facility] COMPREHENSIVE METABOLIC 2022-05-28 15:21:00 Prath, [facility] PANEL [facility] ESTIMATED GFR 2022-05-28 15:21:00 Prath, Chary Chavez spital [facility] SMEAR REVIEW 2022-05-28 15:21:00 Prath, Chary Chavez spital [facility] PREPARE PLATELET PHERESIS 2022-05-28 15:21:00 Prath, [facility] TYPE AND SCREEN 2022-05-25 14:40:00 Prath, Chary Chavez spital [facility] CBC HEMOGRAM 2022-05-25 14:40:00 Prath, Chary Chavez spital [facility] COMPREHENSIVE METABOLIC 2022-05-25 14:40:00 Prath, [facility] PANEL [facility] ESTIMATED GFR 2022-05-25 14:40:00 Prath, Chary Chavez spital [facility] SMEAR REVIEW 2022-05-25 14:40:00 Prath, Charylucio Chavez spital [facility] PREPARE PLATELET PHERESIS 2022-05-25 14:40:00 Prath, [facility] TRANSFUSE PLATELET 2022-05-20 17:50:00 Prath, [facility] PHERESIS [facility] TRANSFUSE PLATELET 2022-05-20 17:20:00 Prath, [facility] PHERESIS [facility] CBC HEMOGRAM 2022-05-20 16:04:00 Prath, Chary Chavez spital [facility] COMPREHENSIVE METABOLIC 2022-05-20 16:04:00 Prath, [facility] PANEL [facility] ESTIMATED GFR 2022-05-20 16:04:00 Prath, Chary Chavez spital [facility] SMEAR REVIEW 2022-05-20 16:04:00 Prath, Charylucio Chavez spital [facility] PREPARE PLATELET PHERESIS 2022-05-20 16:04:00 Prath, [facility] TYPE AND SCREEN 2022-05-17 15:54:00 Prath, Chary Chavez spital [facility] CBC HEMOGRAM 2022-05-17 15:54:00 Prath, Charylucio Chavez spital [facility] COMPREHENSIVE METABOLIC 2022-05-17 15:54:00 Prath, [facility] PANEL [facility] ESTIMATED GFR 2022-05-17 15:54:00 Prath, Chary Chavez spital [facility] SMEAR REVIEW 2022-05-17 15:54:00 Prath, Charylucio Chavez spital [facility] PREPARE PLATELET PHERESIS 2022-05-17 15:54:00 Prath, [facility] TRANSFUSE PLATELET 2022-05-14 17:10:00 Prath, [facility] PHERESIS [facility] TRANSFUSE PLATELET 2022-05-14 16:32:00 Prath, [facility] PHERESIS [facility] TYPE AND SCREEN 2022-05-14 14:24:00 Prath, Chary Chavez spital [facility] CBC HEMOGRAM 2022-05-14 14:24:00 Prath, Chary Chavez spital [facility] COMPREHENSIVE METABOLIC 2022-05-14 14:24:00 Prath, [facility] PANEL [facility] ESTIMATED GFR 2022-05-14 14:24:00 Prath, Chary Chavez spital [facility] SMEAR REVIEW 2022-05-14 14:24:00 Prath, Charylucio Chavez spital [facility] PREPARE PLATELET PHERESIS 2022-05-14 14:24:00 Prath, [facility] TYPE AND SCREEN 2022-05-10 15:22:00 Prath, Chary Chavez spital [facility] CBC HEMOGRAM 2022-05-10 15:22:00 Prath, Chary Chavez spital [facility] COMPREHENSIVE METABOLIC 2022-05-10 15:22:00 Prath, [facility] PANEL [facility] ESTIMATED GFR 2022-05-10 15:22:00 Prath, Chary Chavez spital [facility] SMEAR REVIEW 2022-05-10 15:22:00 Prath, Chary Chavez spital [facility] TRANSFUSE PLATELET 2022-05-06 18:15:00 Prath, [facility] PHERESIS [facility] TRANSFUSE PLATELET 2022-05-06 17:45:00 Prath, [facility] PHERESIS [facility] TYPE AND SCREEN 2022-05-06 15:23:00 Prath, [facility] spital [facility] CBC HEMOGRAM 2022-05-06 15:23:00 Prath, [facility] spital [facility] COMPREHENSIVE METABOLIC 2022-05-06 15:23:00 Prath, [facility] PANEL [facility] ESTIMATED GFR 2022-05-06 15:23:00 Prath, [facility] spital [facility] SMEAR REVIEW 2022-05-06 15:23:00 Prath, [facility] spital [facility] ANTIBODY IDENTIFICATION 2022-05-06 15:23:00 Prath, [facility] PREPARE PLATELET PHERESIS 2022-05-06 15:23:00 Prath, [facility] TRANSFUSE RED BLOOD CELLS 2022-05-03 17:29:00 Prath, [facility] TRANSFUSE RED BLOOD CELLS 2022-05-03 15:35:00 Prath, [facility] CBC HEMOGRAM 2022-05-03 15:10:00 Prath, [facility] spital [facility] COMPREHENSIVE METABOLIC 2022-05-03 15:10:00 Prath, [facility] PANEL [facility] ESTIMATED GFR 2022-05-03 15:10:00 Prath, [facility] spital [facility] SMEAR REVIEW 2022-05-03 15:10:00 Prath, [facility] spital [facility] TRANSFUSE PLATELET 2022-04-30 16:22:00 Prath, [facility] PHERESIS [facility] TRANSFUSE PLATELET 2022-04-30 15:49:00 Prath, [facility] PHERESIS [facility] TYPE AND SCREEN 2022-04-30 14:41:00 Prath, [facility] CBC HEMOGRAM 2022-04-30 14:41:00 Prath, [facility] COMPREHENSIVE METABOLIC 2022-04-30 14:41:00 Prath, [facility] PANEL [place] ESTIMATED GFR 2022-04-30 14:41:00 [facility], [facility] SMEAR REVIEW 2022-04-30 14:41:00 [facility], [facility] ANTIBODY IDENTIFICATION 2022-04-30 14:41:00 Prath, [facility] [place] PREPARE PLATELET PHERESIS 2022-04-30 14:41:00 Prath, [facility] [place] PREPARE RBC 2022-04-30 14:41:00 [facility], [facility] TYPE AND SCREEN 2022-04-26 15:01:00 [facility], [facility] CBC HEMOGRAM 2022-04-26 15:01:00 [facility], [facility] COMPREHENSIVE METABOLIC 2022-04-26 15:01:00 Prath, [facility] PANEL [place] ESTIMATED GFR 2022-04-26 15:01:00 [facility], [facility] SMEAR REVIEW 2022-04-26 15:01:00 Prath, [facility] ANTIBODY IDENTIFICATION 2022-04-26 15:01:00 Prath, [facility] [place] TRANSFUSE PLATELET 2022-04-22 17:35:00 Prath, [facility] [place] TRANSFUSE PLATELET 2022-04-22 17:07:00 Prath, [facility] [place] PREPARE PLATELET PHERESIS 2022-04-22 15:56:00 Prath, [facility] [place] CBC HEMOGRAM 2022-04-22 15:30:00 Prath, [facility] COMPREHENSIVE METABOLIC 2022-04-22 15:30:00 Prath, [facility] PANEL [place] ESTIMATED GFR 2022-04-22 15:30:00 Prath, [facility] SMEAR REVIEW 2022-04-22 15:30:00 Prath, [facility] [place] PREPARE RBC 2022-04-21 17:27:02 [facility], [facility] [facility]- 2022-04-20 05:01:00 Doctor Unassigned, [facility] REQUEST/RESPONSE [facility] TYPE AND SCREEN 2022-04-19 15:16:00 [facility]ath, [facility] [place] CBC HEMOGRAM 2022-04-19 15:16:00 [facility]ath, [facility] [place] COMPREHENSIVE METABOLIC 2022-04-19 15:16:00 Prath, [facility] PANEL [place] ESTIMATED GFR 2022-04-19 15:16:00 [facility], [facility] [place] SMEAR REVIEW 2022-04-19 15:16:00 Prath, [facility] ANTIBODY IDENTIFICATION 2022-04-19 15:16:00 Prath, [facility] [place] PREPARE PLATELET PHERESIS 2022-04-19 15:16:00 Prath, [facility] [place] TRANSFUSE PLATELET 2022-04-15 16:47:00 Prath, [facility] [place] TRANSFUSE PLATELET 2022-04-15 16:07:00 Prath, [facility] [place] PREPARE PLATELET PHERESIS 2022-04-15 15:32:00 Prath, [facility] [place] CBC HEMOGRAM 2022-04-15 14:50:00 [facility]ath, [facility] COMPREHENSIVE METABOLIC 2022-04-15 14:50:00 Prath, [facility] PANEL [place] ESTIMATED GFR 2022-04-15 14:50:00 Prath, [facility] [place] SMEAR REVIEW 2022-04-15 14:50:00 Prath, [facility] TRANSFUSE PLATELET 2022-04-12 16:24:00 Prath, [facility] [place] TYPE AND SCREEN 2022-04-12 15:00:00 [facility], [facility] CBC HEMOGRAM 2022-04-12 15:00:00 Prath, [facility] COMPREHENSIVE METABOLIC 2022-04-12 15:00:00 Prath, [facility] PANEL [place] ESTIMATED GFR 2022-04-12 15:00:00 Pr[facility], [facility] SMEAR REVIEW 2022-04-12 15:00:00 [facility], [facility] ANTIBODY IDENTIFICATION 2022-04-12 15:00:00 Prath, [facility] [place] PREPARE PLATELET PHERESIS 2022-04-12 15:00:00 Prath, [facility] [place] TRANSFUSE PLATELET 2022-04-06 15:33:00 Prath, [facility] [place] TRANSFUSE PLATELET 2022-04-06 14:56:00 Prath, [facility] [place] PREPARE PLATELET PHERESIS 2022-04-06 14:30:00 Prath, [facility] [place] TYPE AND SCREEN 2022-04-05 15:05:00 [facility]ath, [facility] CBC HEMOGRAM 2022-04-05 15:05:00 [facility], [facility] COMPREHENSIVE METABOLIC 2022-04-05 15:05:00 Prath, [facility] PANEL [place] ESTIMATED GFR 2022-04-05 15:05:00 Prath, [facility] [place] SMEAR REVIEW 2022-04-05 15:05:00 [facility]ath, [facility] ANTIBODY IDENTIFICATION 2022-04-05 15:05:00 Prath, [facility] [place] PREPARE PLATELET PHERESIS 2022-04-05 15:05:00 Prath, [facility] [place] TRANSFUSE PLATELET 2022-03-29 16:56:00 Prath, [facility] [place] TYPE AND SCREEN 2022-03-29 15:30:00 [facility]ath, [facility] ANTIBODY IDENTIFICATION 2022-03-29 15:30:00 Prath, [facility] [place] PREPARE PLATELET PHERESIS 2022-03-29 15:30:00 Prath, [facility] [place] COMPREHENSIVE METABOLIC 2022-03-29 15:22:00 Prath, [facility] PANEL [place] ESTIMATED GFR 2022-03-29 15:22:00 Prath, [facility] CBC HEMOGRAM 2022-03-29 15:21:00 Prath, [facility] SMEAR REVIEW 2022-03-29 15:21:00 Prath, [facility] TRANSFUSE PLATELET 2022-03-23 17:10:00 Prath, [facility] [place] TYPE AND SCREEN 2022-03-23 15:30:00 Prath, [facility] CBC HEMOGRAM 2022-03-23 15:30:00 Prath, [facility] COMPREHENSIVE METABOLIC 2022-03-23 15:30:00 Prath, [facility] PANEL [place] ESTIMATED GFR 2022-03-23 15:30:00 Prath, [facility] SMEAR REVIEW 2022-03-23 15:30:00 Prath, [facility] ANTIBODY IDENTIFICATION 2022-03-23 15:30:00 Prath, [facility] [place] PREPARE PLATELET PHERESIS 2022-03-23 15:30:00 Prath, [facility] [place] TRANSFUSE PLATELET 2022-03-18 17:04:00 Prath, [facility] [place] TRANSFUSE PLATELET 2022-03-18 16:31:00 Prath, [facility] [place] TYPE AND SCREEN 2022-03-18 15:12:00 Prath, [facility] CBC HEMOGRAM 2022-03-18 15:12:00 Prath, [facility] COMPREHENSIVE METABOLIC 2022-03-18 15:12:00 Prath, [facility] PANEL [place] ESTIMATED GFR 2022-03-18 15:12:00 Prath, [facility] SMEAR REVIEW 2022-03-18 15:12:00 [facility]ath, [facility] ANTIBODY IDENTIFICATION 2022-03-18 15:12:00 Prath, [facility] [place] PREPARE PLATELET PHERESIS 2022-03-18 15:12:00 Prath, [facility] [place] TRANSFUSE PLATELET 2022-03-11 16:53:00 Prath, [facility] [place] TYPE AND SCREEN 2022-03-11 15:00:00 [facility]ath, [facility] CBC HEMOGRAM 2022-03-11 15:00:00 [facility]ath, [facility] COMPREHENSIVE METABOLIC 2022-03-11 15:00:00 Prath, [facility] PANEL [place] ESTIMATED GFR 2022-03-11 15:00:00 Prath, [facility] SMEAR REVIEW 2022-03-11 15:00:00 [facility], [facility] ANTIBODY IDENTIFICATION 2022-03-11 15:00:00 Prath, [facility] [place] PREPARE PLATELET PHERESIS 2022-03-11 15:00:00 Prath, [facility] [place] TRANSFUSE PLATELET 2022-03-04 16:31:00 Prath, [facility] [place] TRANSFUSE PLATELET 2022-03-04 16:01:00 Prath, [facility] [place] PREPARE PLATELET PHERESIS 2022-03-04 15:38:00 Prath, [facility] [place] CBC HEMOGRAM 2022-03-04 14:59:00 Prath, [facility] COMPREHENSIVE METABOLIC 2022-03-04 14:59:00 Prath, [facility] PANEL [place] ESTIMATED GFR 2022-03-04 14:59:00 Prath, [facility] SMEAR REVIEW 2022-03-04 14:59:00 Prath, [facility] CBC HEMOGRAM 2022-03-01 14:47:00 Prath, [facility] COMPREHENSIVE METABOLIC 2022-03-01 14:47:00 Prath, [facility] PANEL [place] ESTIMATED GFR 2022-03-01 14:47:00 [facility]ath, [facility] SMEAR REVIEW 2022-03-01 14:47:00 Prath, [facility] TYPE AND SCREEN 2022-03-01 05:55:00 Prath, [facility] ANTIBODY IDENTIFICATION 2022-03-01 05:55:00 Prath, [facility] [place] PREPARE PLATELET PHERESIS 2022-03-01 05:55:00 Prath, [facility] [place] TRANSFUSE PLATELET 2022-02-22 17:10:00 Prath, [facility] [place] TRANSFUSE PLATELET 2022-02-22 16:42:00 Prath, [facility] [place] TYPE AND SCREEN 2022-02-22 14:51:00 Prath, [facility] CBC HEMOGRAM 2022-02-22 14:51:00 Prath, [facility] COMPREHENSIVE METABOLIC 2022-02-22 14:51:00 Prath, [facility] PANEL [place] ESTIMATED GFR 2022-02-22 14:51:00 Prath, [facility] SMEAR REVIEW 2022-02-22 14:51:00 Prath, [facility] ANTIBODY IDENTIFICATION 2022-02-22 14:51:00 Prath, [facility] [place] PREPARE PLATELET PHERESIS 2022-02-22 14:51:00 Prath, [facility] TRANSFUSE PLATELET 2022-02-16 17:55:00 Prath, [facility] [place] TRANSFUSE PLATELET 2022-02-16 17:09:00 Prath, [facility] [place] TYPE AND SCREEN 2022-02-16 15:00:00 Prath, [facility] COMPREHENSIVE METABOLIC 2022-02-16 15:00:00 Prath, [facility] PANEL [place] ESTIMATED GFR 2022-02-16 15:00:00 [facility], [facility] ANTIBODY IDENTIFICATION 2022-02-16 15:00:00 Prath, [facility] [place] PREPARE PLATELET PHERESIS 2022-02-16 15:00:00 Prath, [facility] CBC HEMOGRAM 2022-02-16 14:45:00 Prath, [facility] SMEAR REVIEW 2022-02-16 14:45:00 Prath, [facility] TYPE AND SCREEN 2022-02-12 14:35:00 [facility]ath, [facility] CBC HEMOGRAM 2022-02-12 14:35:00 Prath, [facility] COMPREHENSIVE METABOLIC 2022-02-12 14:35:00 Prath, [facility] PANEL [place] ESTIMATED GFR 2022-02-12 14:35:00 Prath, [facility] SMEAR REVIEW 2022-02-12 14:35:00 Prath, [facility] TRANSFUSE PLATELET 2022-02-08 16:39:00 Prath, [facility] [place] TRANSFUSE PLATELET 2022-02-08 15:58:00 Prath, [facility] [place] TYPE AND SCREEN 2022-02-08 15:10:00 Prath, [facility] CBC HEMOGRAM 2022-02-08 15:10:00 Prath, [facility] COMPREHENSIVE METABOLIC 2022-02-08 15:10:00 Prath, [facility] PANEL [place] ESTIMATED GFR 2022-02-08 15:10:00 Prath, [facility] SMEAR REVIEW 2022-02-08 15:10:00 Prath, [facility] PREPARE PLATELET PHERESIS 2022-02-08 15:10:00 Prath [facility] [place] TRANSFUSE PLATELET 2022-02-01 17:17:00 Prath, [facility] [place] TRANSFUSE PLATELET 2022-02-01 16:36:00 Prath, [facility] [place] TYPE AND SCREEN 2022-02-01 14:46:00 Prath, [facility] CBC HEMOGRAM 2022-02-01 14:46:00 Prath, [facility] COMPREHENSIVE METABOLIC 2022-02-01 14:46:00 Prath, [facility] PANEL [place] ESTIMATED GFR 2022-02-01 14:46:00 Prath, [facility] SMEAR REVIEW 2022-02-01 14:46:00 [facility]ath, [facility] ANTIBODY IDENTIFICATION 2022-02-01 14:46:00 Prath, [facility] [place] PREPARE PLATELET PHERESIS 2022-02-01 14:46:00 Prath, [facility] SMEAR REVIEW 2022-01-28 14:36:00 Prath, [facility] CBC HEMOGRAM 2022-01-28 14:36:00 Prath, [facility] COMPREHENSIVE METABOLIC 2022-01-28 14:36:00 Prath, [facility] PANEL [place] ESTIMATED GFR 2022-01-28 14:36:00 Prath, [facility] TYPE AND SCREEN 2022-01-25 15:05:00 [facility]ath, [facility] CBC HEMOGRAM 2022-01-25 15:05:00 Prath, [facility] SMEAR REVIEW 2022-01-25 15:05:00 Prath, [facility] ANTIBODY IDENTIFICATION 2022-01-25 15:05:00 Prath, [facility] COMPREHENSIVE METABOLIC 2022-01-25 15:04:00 Prath, [facility] PANEL [facility] ESTIMATED GFR 2022-01-25 15:04:00 [facility]ath, [facility] CBC HEMOGRAM 2022-01-21 15:04:00 Prath, [facility] COMPREHENSIVE METABOLIC 2022-01-21 15:04:00 Prath, [facility] PANEL [facility] ESTIMATED GFR 2022-01-21 15:04:00 Prath, [facility] SMEAR REVIEW 2022-01-21 15:04:00 Prath, [facility] TRANSFUSE PLATELET 2022-01-18 18:03:00 Prath, [facility] [place] TRANSFUSE PLATELET 2022-01-18 17:12:00 Prath, [facility] [place] PREPARE PLATELET PHERESIS 2022-01-18 15:15:00 Prath, [facility] TYPE AND SCREEN 2022-01-18 15:15:00 Prath, [facility] ANTIBODY IDENTIFICATION 2022-01-18 15:15:00 Prath, [facility] CBC HEMOGRAM 2022-01-18 15:01:00 Prath, [facility] COMPREHENSIVE METABOLIC 2022-01-18 15:01:00 Prath, [facility] PANEL [place] ESTIMATED GFR 2022-01-18 15:01:00 Prath, [facility] SMEAR REVIEW 2022-01-18 15:01:00 Prath, [facility] CBC HEMOGRAM 2022-01-14 14:32:00 [facility]ath, [facility] COMPREHENSIVE METABOLIC 2022-01-14 14:32:00 Prath, [facility] PANEL [facility] ESTIMATED GFR 2022-01-14 14:32:00 [facility]ath, [facility] SMEAR REVIEW 2022-01-14 14:32:00 [facility]ath, [facility] PREPARE RBC 2022-01-11 15:15:00 [facility], [facility] ANTIBODY IDENTIFICATION 2022-01-11 15:15:00 Prath, [facility] CBC HEMOGRAM 2022-01-11 15:04:00 [facility], [facility] COMPREHENSIVE METABOLIC 2022-01-11 15:04:00 Prath, [facility] PANEL [place] ESTIMATED GFR 2022-01-11 15:04:00 [facility], [facility] SMEAR REVIEW 2022-01-11 15:04:00 Prath, [facility] TRANSFUSE PLATELET 2022-01-07 16:39:00 Prath, [facility] [place] TRANSFUSE PLATELET 2022-01-07 15:53:00 Prath, [facility] [place] CBC HEMOGRAM 2022-01-07 14:43:00 Prath, [facility] COMPREHENSIVE METABOLIC 2022-01-07 14:43:00 Prath, [facility] PANEL [place] ESTIMATED GFR 2022-01-07 14:43:00 Prath, [facility] SMEAR REVIEW 2022-01-07 14:43:00 [facility]ath, [facility] PREPARE RBC 2022-01-04 14:59:00 Prath, [facility] PREPARE PLATELET PHERESIS 2022-01-04 14:59:00 Prath, [facility] CBC HEMOGRAM 2022-01-04 14:59:00 Prath, [facility] SMEAR REVIEW 2022-01-04 14:59:00 Prath, [facility] ANTIBODY IDENTIFICATION 2022-01-04 14:59:00 Prath, [facility] CBC HEMOGRAM 2021-12-30 14:46:00 Prath, [facility] COMPREHENSIVE METABOLIC 2021-12-30 14:46:00 Prath, [facility] PANEL [place] ESTIMATED GFR 2021-12-30 14:46:00 Prath, [facility] SMEAR REVIEW 2021-12-30 14:46:00 Prath, [facility] TRANSFUSE PLATELET 2021-12-28 16:35:00 Prath, [facility] PHERESIS [place] TRANSFUSE PLATELET 2021-12-28 15:58:00 Prath, [facility] [place] PREPARE RBC 2021-12-28 14:53:00 Prath, [facility] PREPARE PLATELET PHERESIS 2021-12-28 14:53:00 Prath, [facility] CBC HEMOGRAM 2021-12-28 14:53:00 Prath, [facility] COMPREHENSIVE METABOLIC 2021-12-28 14:53:00 Prath, [facility] PANEL [place] ESTIMATED GFR 2021-12-28 14:53:00 Prath, [facility] SMEAR REVIEW 2021-12-28 14:53:00 Prath, [facility] ANTIBODY IDENTIFICATION 2021-12-28 14:53:00 Prath, [facility] [place] DIRECT ANTIGLOBULIN TEST 2021-12-28 14:53:00 Prath, [facility] (DAVID) WITH REFLEX TO [facility] ANTI-COMPLEMENT AND ANTI-IGG POSITIVE DAVID REFLEX WITH 2021-12-28 14:53:00 Prath, [facility] SALINE [place] ELUTION 2021-12-28 14:53:00 Prath, [facility] CBC HEMOGRAM 2021-12-24 14:50:00 Prath, [facility] COMPREHENSIVE METABOLIC 2021-12-24 14:50:00 Prath, [facility] PANEL [place] ESTIMATED GFR 2021-12-24 14:50:00 Prath, [facility] SMEAR REVIEW 2021-12-24 14:50:00 Prath, [facility] TRANSFUSE PLATELET 2021-12-21 16:21:00 Prath, [facility] PHERESIS [place] PREPARE PLATELET PHERESIS 2021-12-21 14:54:00 Prath, [facility] PREPARE RBC 2021-12-21 14:54:00 Prath, [facility] CBC HEMOGRAM 2021-12-21 14:54:00 Prath, [facility] COMPREHENSIVE METABOLIC 2021-12-21 14:54:00 Prath, [facility] PANEL [place] ESTIMATED GFR 2021-12-21 14:54:00 [facility], [facility] 2021-12-21 14:54:00 Prath, [facility] ANTIBODY IDENTIFICATION 2021-12-21 14:54:00 Prath, [facility] [place] DIRECT ANTIGLOBULIN TEST 2021-12-21 14:54:00 Prath, [facility] (DAVID) WITH REFLEX TO [facility] ANTI-COMPLEMENT AND ANTI-IGG POSITIVE DAVID REFLEX WITH 2021-12-21 14:54:00 Prath, [facility] SALINE [place] CBC HEMOGRAM 2021-12-17 15:17:00 [facility]ath, [facility] COMPREHENSIVE METABOLIC 2021-12-17 15:17:00 Prath [facility] PANEL [place] ESTIMATED GFR 2021-12-17 15:17:00 Prath, [facility] [place] SMEAR REVIEW 2021-12-17 15:17:00 Prath, [facility] TRANSFUSE PLATELET 2021-12-14 16:02:00 Prath, [facility] PHERESIS [place] PREPARE PLATELET PHERESIS 2021-12-14 14:49:00 Prath [facility] TYPE AND SCREEN 2021-12-14 14:49:00 [facility]ath, [facility] CBC HEMO[facility] 2021-12-14 14:49:00 Prath, [facility] COMPREHENSIVE METABOLIC 2021-12-14 14:49:00 Prath, [facility] PANEL [place] ESTIMATED GFR 2021-12-14 14:49:00 Prath, [facility] SMEAR REVIEW 2021-12-14 14:49:00 Prath, [facility] ANTIBODY IDENTIFICATION 2021-12-14 14:49:00 Prath, [facility] [place] DIRECT ANTIGLOBULIN TEST 2021-12-14 14:49:00 Prath, [facility] (DAVID) WITH REFLEX TO [facility] ANTI-COMPLEMENT AND ANTI-IGG POSITIVE DAVID REFLEX WITH 2021-12-14 14:49:00 Prath, [facility] SALINE [facility] OLIVA ANTIGEN PATIENT 2021-12-14 14:49:00 Prath, [facility] TYPING [facility] ELUTION 2021-12-14 14:49:00 Prath, [facility] CBC HEMOGRAM 2021-12-10 15:23:00 Prath, [facility] COMPREHENSIVE METABOLIC 2021-12-10 15:23:00 Prath, [facility] PANEL [place] ESTIMATED GFR 2021-12-10 15:23:00 Prath, [facility] SMEAR REVIEW 2021-12-10 15:23:00 Prath, [facility] TRANSFUSE PLATELET 2021-12-07 17:12:00 Prath, [facility] PHERESIS [place] TRANSFUSE PLATELET 2021-12-07 16:35:00 Prath, [facility] PHERESIS [place] PREPARE PLATELET PHERESIS 2021-12-07 14:50:00 Prath, [facility] TYPE AND SCREEN 2021-12-07 14:50:00 Prath, [facility] CBC HEMOGRAM 2021-12-07 14:45:00 Prath, [facility] COMPREHENSIVE METABOLIC 2021-12-07 14:45:00 Prath, [facility] PANEL [facility] ESTIMATED GFR 2021-12-07 14:45:00 Prath, [facility] SMEAR REVIEW 2021-12-07 14:45:00 Prath, [facility] TRANSFUSE RED BLOOD CELLS 2021-12-03 16:02:00 Prath, [facility] CBC HEMOGRAM 2021-12-03 15:12:00 Prath, [facility] COMPREHENSIVE METABOLIC 2021-12-03 15:12:00 Prath, [facility] PANEL [facility] ESTIMATED GFR 2021-12-03 15:12:00 [facility], [facility] SMEAR REVIEW 2021-12-03 15:12:00 [facility]ath, [facility] TRANSFUSE PLATELET 2021-11-30 17:00:00 Prath, [facility] PHERESIS [place] TRANSFUSE PLATELET 2021-11-30 16:15:00 Prath, [facility] PHERESIS [place] PREPARE PLATELET PHERESIS 2021-11-30 14:50:00 Prath, [facility] PREPARE RBC 2021-11-30 14:50:00 [facility]ath, [facility] TYPE AND SCREEN 2021-11-30 14:50:00 [facility]ath, [facility] CBC HEMOGRAM 2021-11-30 14:40:00 [facility]ath, [facility] COMPREHENSIVE METABOLIC 2021-11-30 14:40:00 Prath, [facility] PANEL [facility] ESTIMATED GFR 2021-11-30 14:40:00 [facility]ath, [facility] SMEAR REVIEW 2021-11-30 14:40:00 [facility]ath, [facility] CBC HEMOGRAM 2021-11-26 15:33:00 Prath, [facility] COMPREHENSIVE METABOLIC 2021-11-26 15:33:00 Prath, [facility] PANEL [facility] ESTIMATED GFR 2021-11-26 15:33:00 [facility]ath, [facility] SMEAR REVIEW 2021-11-26 15:33:00 [facility]ath, [facility] TRANSFUSE PLATELET 2021-11-23 18:14:00 Prath, [facility] PHERESIS [place] TRANSFUSE PLATELET 2021-11-23 17:33:00 Prath, [facility] PHERESIS [place] PREPARE PLATELET PHERESIS 2021-11-23 15:45:00 Prath, [facility] PREPARE RBC 2021-11-23 15:45:00 [facility]ath, [facility] CBC HEMOGRAM 2021-11-23 15:45:00 Prath, [facility] COMPREHENSIVE METABOLIC 2021-11-23 15:45:00 Prath, [facility] PANEL [place] ESTIMATED GFR 2021-11-23 15:45:00 Prath, [facility] SMEAR REVIEW 2021-11-23 15:45:00 Prath, [facility] TRANSFUSE RED BLOOD CELLS 2021-11-19 16:51:00 Prath, [facility] [place] CBC HEMOGRAM 2021-11-19 15:56:00 Prath, [facility] COMPREHENSIVE METABOLIC 2021-11-19 15:56:00 Prath, [facility] PANEL [place] ESTIMATED GFR 2021-11-19 15:56:00 Prath, [facility] [place] SMEAR REVIEW 2021-11-19 15:56:00 [facility]ath, [facility] PREPARE PLATELET PHERESIS 2021-11-19 15:44:00 Prath, [facility] [place] PREPARE RBC 2021-11-19 15:44:00 Prath, [facility] PREPARE RBC 2021-11-17 14:55:49 Prath, [facility] [place] TRANSFUSE PLATELET 2021-11-16 18:19:00 Prath, [facility] PHERESIS [place] TRANSFUSE PLATELET 2021-11-16 17:40:00 Prath, [facility] PHERESIS [place] PREPARE PLATELET PHERESIS 2021-11-16 15:46:00 Prath, [facility] [place] PREPARE RBC 2021-11-16 15:46:00 Prath, [facility] TYPE AND SCREEN 2021-11-16 15:46:00 Prath, [facility] COMPREHENSIVE METABOLIC 2021-11-16 15:46:00 Prath, [facility] PANEL [place] ESTIMATED GFR 2021-11-16 15:46:00 Prath, [facility] SMEAR REVIEW 2021-11-16 15:46:00 Prath, [facility] CBC HEMOGRAM 2021-11-16 14:46:00 Prath, [facility] CBC HEMOGRAM 2021-11-12 16:07:00 Prath, [facility]arylucio [facility] sp[facility] COMPREHENSIVE METABOLIC 2021-11-12 16:07:00 Prath, [facility] PANEL [facility] ESTIMATED GFR 2021-11-12 16:07:00 [facility]ath, [facility] SMEAR REVIEW 2021-11-12 16:07:00 Prath, [facility] TRANSFUSE PLATELET 2021-11-09 17:53:00 Prath, [facility] PHERESIS [facility] TRANSFUSE PLATELET 2021-11-09 17:13:00 Prath, [facility] PHERESIS [facility] PREPARE PLATELET PHERESIS 2021-11-09 16:10:00 Prath, [facility] PREPARE RBC 2021-11-09 16:10:00 Prath, [facility] CBC HEMOGRAM 2021-11-09 15:56:00 Prath, [facility] COMPREHENSIVE METABOLIC 2021-11-09 15:56:00 Prath, [facility] PANEL [facility] ESTIMATED GFR 2021-11-09 15:56:00 Prath, [facility] SMEAR REVIEW 2021-11-09 15:56:00 Prath, [facility] TRANSFUSE RED BLOOD CELLS 2021-11-05 18:15:00 Prath, [facility] TRANSFUSE RED BLOOD CELLS 2021-11-05 16:23:00 Prath, [facility] CBC HEMOGRAM 2021-11-05 16:02:00 Prath, [facility] COMPREHENSIVE METABOLIC 2021-11-05 16:02:00 Prath, [facility] PANEL [facility] ESTIMATED GFR 2021-11-05 16:02:00 Prath, [facility] SMEAR REVIEW 2021-11-05 16:02:00 Prath, [facility] TRANSFUSE PLATELET 2021-11-02 18:16:00 Prath, [facility] PHERESIS [facility] TRANSFUSE PLATELET 2021-11-02 17:20:00 Prath, [facility] PHERESIS [facility] PREPARE PLATELET PHERESIS 2021-11-02 15:52:00 Prath, [facility] PREPARE RBC 2021-11-02 15:52:00 Prath, [facility] TYPE AND SCREEN 2021-11-02 15:52:00 Prath, [facility] CBC HEMOGRAM 2021-11-02 15:52:00 Prath, [facility] COMPREHENSIVE METABOLIC 2021-11-02 15:52:00 Prath, [facility] PANEL [facility] ESTIMATED GFR 2021-11-02 15:52:00 Prath, [facility] SMEAR REVIEW 2021-11-02 15:52:00 Prath, [facility] ANTIBODY IDENTIFICATION 2021-11-02 15:52:00 Prath, [facility] CBC HEMOGRAM 2021-10-29 15:45:00 Prath, [facility] COMPREHENSIVE METABOLIC 2021-10-29 15:45:00 Prath, [facility] PANEL [facility] ESTIMATED GFR 2021-10-29 15:45:00 Prath, [facility] TRANSFUSE PLATELET 2021-10-26 17:20:00 Prath, [facility] PHERESIS [facility] TRANSFUSE PLATELET 2021-10-26 16:43:00 Prath, [facility] PHERESIS [facility] PREPARE PLATELET PHERESIS 2021-10-26 15:39:00 Prath, [facility] TYPE AND SCREEN 2021-10-26 15:39:00 Prath, [facility] CBC HEMOGRAM 2021-10-26 15:39:00 Prath, [facility] COMPREHENSIVE METABOLIC 2021-10-26 15:39:00 Prath, [facility] PANEL [facility] ESTIMATED GFR 2021-10-26 15:39:00 Prath, [facility] SMEAR REVIEW 2021-10-26 15:39:00 [facility], [facility] CBC HEMOGRAM 2021-10-22 15:37:00 Prath, [facility] COMPREHENSIVE METABOLIC 2021-10-22 15:37:00 Prath, [facility] PANEL [facility] ESTIMATED GFR 2021-10-22 15:37:00 Prath, [facility]aryluico [facility] SMEAR REVIEW 2021-10-22 15:37:00 Prath, [facility] TRANSFUSE PLATELET 2021-10-19 17:11:00 Prath, [facility] PHERESIS [facility] TRANSFUSE PLATELET 2021-10-19 16:40:00 Prath, [facility] PHERESIS [facility] PREPARE PLATELET PHERESIS 2021-10-19 15:30:00 Prath, [facility] TYPE AND SCREEN 2021-10-19 15:30:00 Prath, [facility] CBC HEMOGRAM 2021-10-19 15:24:00 Prath, [facility] COMPREHENSIVE METABOLIC 2021-10-19 15:24:00 Prath, [facility] PANEL [facility] ESTIMATED GFR 2021-10-19 15:24:00 Prath, [facility] SMEAR REVIEW 2021-10-19 15:24:00 Prath, [facility] TRANSFUSE RED BLOOD CELLS 2021-10-15 18:55:00 Prath, [facility] TRANSFUSE RED BLOOD CELLS 2021-10-15 16:24:00 Prath, [facility] CBC HEMOGRAM 2021-10-15 15:30:00 Prath, [facility] COMPREHENSIVE METABOLIC 2021-10-15 15:30:00 Prath, [facility] PANEL [facility] ESTIMATED GFR 2021-10-15 15:30:00 Prath, [facility] SMEAR REVIEW 2021-10-15 15:30:00 Prath, [facility] [id number] 2021-10-13 00:00:00 Provider, [facility] TRANSFUSE PLATELET 2021-10-12 17:40:00 Prath, [facility] PHERESIS [facility] TRANSFUSE PLATELET 2021-10-12 17:04:00 Prath, [facility] PHERESIS [facility] PREPARE PLATELET PHERESIS 2021-10-12 15:48:00 Prath, [facility] PREPARE RBC 2021-10-12 15:48:00 Prath, [facility] CBC HEMOGRAM 2021-10-12 15:48:00 Prath, [facility] COMPREHENSIVE METABOLIC 2021-10-12 15:48:00 Prath, [facility] PANEL [facility] ESTIMATED GFR 2021-10-12 15:48:00 Prath, [facility] SMEAR REVIEW 2021-10-12 15:48:00 Prath, [facility] CBC HEMOGRAM 2021-10-08 15:45:00 Prath, [facility] COMPREHENSIVE METABOLIC 2021-10-08 15:45:00 Prath, [facility] PANEL [facility] ESTIMATED GFR 2021-10-08 15:45:00 Prath, [facility] SMEAR REVIEW 2021-10-08 15:45:00 Prath, [facility] TRANSFUSE PLATELET 2021-10-05 17:01:00 Prath, [facility]ERESIS [facility] TRANSFUSE PLATELET 2021-10-05 16:16:00 Prath, [facility] PHERESIS [facility] PREPARE PLATELET PHERESIS 2021-10-05 15:39:00 Prath, [facility] TYPE AND SCREEN 2021-10-05 15:39:00 Prath, [facility] CBC HEMOGRAM 2021-10-05 15:39:00 Prath, [facility] COMPREHENSIVE METABOLIC 2021-10-05 15:39:00 Prath, [facility] PANEL [facility] ESTIMATED GFR 2021-10-05 15:39:00 Prath, [facility] SMEAR REVIEW 2021-10-05 15:39:00 Prath, [facility] TRANSFUSE RED BLOOD CELLS 2021-10-01 21:15:00 Prath, [facility] TRANSFUSE RED BLOOD CELLS 2021-10-01 19:18:00 Prath, [facility] TRANSFUSE PLATELET 2021-10-01 17:25:00 Prath, [facility] PHERESIS [facility] PREPARE PLATELET PHERESIS 2021-10-01 16:21:00 Prath, [facility] CBC HEMOGRAM 2021-10-01 15:27:00 Prath, [facility] COMPREHENSIVE METABOLIC 2021-10-01 15:27:00 Prath, [facility] PANEL [facility] ESTIMATED GFR 2021-10-01 15:27:00 Prath, [facility] SMEAR REVIEW 2021-10-01 15:27:00 Prath, [facility] PREPARE RBC 2021-09-28 15:41:00 Prath, [facility] PREPARE PLATELET PHERESIS 2021-09-28 15:41:00 Prath, [facility] TYPE AND SCREEN 2021-09-28 15:41:00 Prath, [facility] CBC HEMOGRAM 2021-09-28 15:41:00 Prath, [facility] COMPREHENSIVE METABOLIC 2021-09-28 15:41:00 Prath, [facility] PANEL [facility] ESTIMATED GFR 2021-09-28 15:41:00 Prath, [facility] SMEAR REVIEW 2021-09-28 15:41:00 Prath, [facility] TRANSFUSE PLATELET 2021-09-24 17:08:00 Prath, [facility] PHERESIS [facility] TRANSFUSE PLATELET 2021-09-24 16:26:00 Prath, [facility] PHERESIS [facility] PREPARE PLATELET PHERESIS 2021-09-24 16:02:00 Prath, [facility] CBC HEMOGRAM 2021-09-24 15:36:00 Prath, [facility] COMPREHENSIVE METABOLIC 2021-09-24 15:36:00 Prath, [facility] PANEL [facility] ESTIMATED GFR 2021-09-24 15:36:00 Prath, [facility] SMEAR REVIEW 2021-09-24 15:36:00 Prath, [facility] TRANSFUSE PLATELET 2021-09-21 17:53:00 Prath, [facility] PHERESIS [facility] TRANSFUSE PLATELET 2021-09-21 17:13:00 Prath, [facility] PH[facility]ES[facility] PREPARE PLATELET PHERESIS 2021-09-21 15:41:00 Prath, [facility] TYPE AND SCREEN 2021-09-21 15:41:00 Prath, [facility] CBC HEMOGRAM 2021-09-21 15:41:00 Prath, [facility] COMPREHENSIVE METABOLIC 2021-09-21 15:41:00 Prath, [facility] PANEL [facility] ESTIMATED GFR 2021-09-21 15:41:00 Prath, [facility] SMEAR REVIEW 2021-09-21 15:41:00 Prath, [facility] CBC HEMOGRAM 2021-09-16 15:37:00 Prath, [facility] COMPREHENSIVE METABOLIC 2021-09-16 15:37:00 Prath, [facility] PANEL [facility] ESTIMATED GFR 2021-09-16 15:37:00 PrathChary spital [facility] SMEAR REVIEW 2021-09-16 15:37:00 PrathChary [facility] TRANSFUSE PLATELET 2021-09-14 19:09:00 Pra, [facility] PHERESIS [facility] TRANSFUSE PLATELET 2021-09-14 18:20:00 Pra, [facility] PHERESIS [facility] PREPARE PLATELET PHERESIS 2021-09-14 15:36:00 Prath, [facility] PREPARE RBC 2021-09-14 15:36:00 Prath, [facility] CBC HEMOGRAM 2021-09-14 15:36:00 PrathChary spital [facility] COMPREHENSIVE METABOLIC 2021-09-14 15:36:00 Prath [facility] PANEL [facility] ESTIMATED GFR 2021-09-14 15:36:00 PrathChary spital [facility] SMEAR REVIEW 2021-09-14 15:36:00 Prath, [facility] ANTIBODY IDENTIFICATION 2021-09-14 15:36:00 Prath [facility] TRANSFUSE RED BLOOD CELLS 2021-09-10 19:54:00 Pra [facility] TRANSFUSE RED BLOOD CELLS 2021-09-10 17:39:00 Prath [facility] TRANSFUSE PLATELET 2021-09-10 17:07:00 Pra [facility] PHERESIS [facility] TRANSFUSE PLATELET 2021-09-10 16:31:00 Prablayne, [facility] PHERESIS [facility] PREPARE PLATELET PHERESIS 2021-09-10 15:53:00 Prath, [facility] CBC HEMOGRAM 2021-09-10 15:27:00 [facility] COMPREHENSIVE METABOLIC 2021-09-10 15:27:00 Prath [facility] PANEL [facility] ESTIMATED GFR 2021-09-10 15:27:00 Prath, [facility] SMEAR REVIEW 2021-09-10 15:27:00 Prath, [facility] PREPARE RBC 2021-09-07 16:27:00 Prath, [facility] PREPARE PLATELET PHERESIS 2021-09-07 16:27:00 Pra, [facility] TYPE AND SCREEN 2021-09-07 16:27:00 Prath, [facility] CBC HEMOGRAM 2021-09-07 16:27:00 Prath, [facility] COMPREHENSIVE METABOLIC 2021-09-07 16:27:00 Prath, [facility] PANEL [facility] ESTIMATED GFR 2021-09-07 16:27:00 Pra, [facility] SMEAR REVIEW 2021-09-07 16:27:00 Prath, [facility] ANTIBODY IDENTIFICATION 2021-09-07 16:27:00 Prath, [facility] ANTIBODY SCREEN (GEL) 2021-09-07 16:27:00 Pra, [facility] TRANSFUSE PLATELET 2021-09-03 20:10:00 Prath, [facility] PHERESIS [facility] TRANSFUSE PLATELET 2021-09-03 19:30:00 Pra, [facility] PHERESIS [facility] TRANSFUSE RED BLOOD CELLS 2021-09-03 17:19:00 Prath, [facility] CBC HEMOGRAM 2021-09-03 15:46:00 Prath, [facility] COMPREHENSIVE METABOLIC 2021-09-03 15:46:00 Prath, [facility] PANEL [facility] ESTIMATED GFR 2021-09-03 15:46:00 Prath, [facility] SMEAR REVIEW 2021-09-03 15:46:00 Prath, [facility] SARS-COV-2 COVID-19 2021-08-31 20:10:29 Doctor Unassigned, [facility] VACCINE,0.3ML,IM (PFIZER) [facility] TRANSFUSE PLATELET 2021-08-31 17:25:00 Prath, [facility] PHERESIS [facility] PREPARE RBC 2021-08-31 16:00:00 Prath, [facility] PREPARE PLATELET PHERESIS 2021-08-31 16:00:00 Prath, [facility] TYPE AND SCREEN 2021-08-31 16:00:00 Prath, [facility] ANTIBODY IDENTIFICATION 2021-08-31 16:00:00 Prath, [facility] CBC HEMOGRAM 2021-08-31 15:54:00 Prath, [facility] COMPREHENSIVE METABOLIC 2021-08-31 15:54:00 Prath, [facility] PANEL [facility] ESTIMATED GFR 2021-08-31 15:54:00 Prath, [facility] SMEAR REVIEW 2021-08-31 15:54:00 Prath, [facility] CBC HEMOGRAM 2021-08-27 15:47:00 Prath, [facility] COMPREHENSIVE METABOLIC 2021-08-27 15:47:00 Prath, [facility] PANEL [facility] ESTIMATED GFR 2021-08-27 15:47:00 Prath, [facility] SMEAR REVIEW 2021-08-27 15:47:00 Prath, [facility] TRANSFUSE PLATELET 2021-08-24 18:08:00 Prath, [facility] TRANSFUSE PLATELET 2021-08-24 17:31:00 Prath, [facility] PREPARE PLATELET PHERESIS 2021-08-24 16:03:00 Prath, [facility] TYPE AND SCREEN 2021-08-24 16:03:00 Prath, [facility] CBC HEMOGRAM 2021-08-24 16:03:00 PrathChary spital [facility] COMPREHENSIVE METABOLIC 2021-08-24 16:03:00 Prath [facility] PANEL [facility] ESTIMATED GFR 2021-08-24 16:03:00 Prath, [facility] SMEAR REVIEW 2021-08-24 16:03:00 Prath, [facility] TRANSFUSE RED BLOOD CELLS 2021-08-20 18:54:00 Prath Chary [facility] TRANSFUSE RED BLOOD CELLS 2021-08-20 16:54:00 Prath, Chary [facility] CBC HEMOGRAM 2021-08-20 16:07:00 Prath, [facility] COMPREHENSIVE METABOLIC 2021-08-20 16:07:00 Prath Chary [facility] PANEL [facility] ESTIMATED GFR 2021-08-20 16:07:00 Prath, [facility] SMEAR REVIEW 2021-08-20 16:07:00 Prath, [facility] HEAD WO CONTRAST 2021-08-17 23:01:13 Candy Ramos [facility] ASSIGNMENT OF BENEFITS 2021-08-17 22:19:28 Doctor Unassigned, [facility] TRANSFUSE PLATELET 2021-08-17 17:35:00 Prath [facility]ES[facility] TRANSFUSE PLATELET 2021-08-17 17:04:00 Prath, [facility] PREPARE PLATELET PHERESIS 2021-08-17 15:44:00 Prath, [facility] PREPARE RBC 2021-08-17 15:44:00 PrathChary spital [facility] TYPE AND SCREEN 2021-08-17 15:44:00 Prath, [facility] CBC HEMOGRAM 2021-08-17 15:44:00 Prath, [facility] COMPREHENSIVE METABOLIC 2021-08-17 15:44:00 [facility] ESTIMATED GFR 2021-08-17 15:44:00 Prath, [facility] SMEAR REVIEW 2021-08-17 15:44:00 Prath, [facility] ANTIBODY IDENTIFICATION 2021-08-17 15:44:00 Prath, [facility] TRANSFUSE PLATELET 2021-08-12 17:29:00 Prath, [facility] TRANSFUSE PLATELET 2021-08-12 16:47:00 Prath, [facility] PH[facility]ES[facility] CBC HEMOGRAM 2021-08-12 15:58:00 Prath, [facility] COMPREHENSIVE METABOLIC 2021-08-12 15:58:00 Prath, [facility] PANEL [facility] ESTIMATED GFR 2021-08-12 15:58:00 Prath [facility] SMEAR REVIEW 2021-08-12 15:58:00 Prath, [facility] PREPARE PLATELET PHERESIS 2021-08-12 15:57:00 Prath [facility] TRANSFUSE PLATELET 2021-08-10 17:52:00 Prath, [facility]ES[facility] PREPARE PLATELET PHERESIS 2021-08-10 16:04:00 Prath, [facility] TYPE AND SCREEN 2021-08-10 16:04:00 Prath, [facility] CBC HEMOGRAM 2021-08-10 16:04:00 Prath, [facility] COMPREHENSIVE METABOLIC 2021-08-10 16:04:00 Prath [facility] PANEL [facility] ESTIMATED GFR 2021-08-10 16:04:00 Prath, [facility] SMEAR REVIEW 2021-08-10 16:04:00 Prath [facility] ANTIBODY SCREEN (GEL) 2021-08-10 16:04:00 PrathChary [facility] TRANSFUSE RED BLOOD CELLS 2021-08-06 18:25:00 Prath [facility] TRANSFUSE RED BLOOD CELLS 2021-08-06 16:12:00 Prath, [facility] CBC HEMOGRAM 2021-08-06 15:53:00 Prath, [facility] COMPREHENSIVE METABOLIC 2021-08-06 15:53:00 Prath, [facility] PANEL [facility] ESTIMATED GFR 2021-08-06 15:53:00 Prath, [facility] SMEAR REVIEW 2021-08-06 15:53:00 Prath, [facility] TRANSFUSE PLATELET 2021-08-03 17:45:00 Prath, [facility] TRANSFUSE PLATELET 2021-08-03 17:13:00 Prath, [facility] PREPARE PLATELET PHERESIS 2021-08-03 15:54:00 Prath, [facility] PREPARE RBC 2021-08-03 15:54:00 Prath, [facility] TYPE AND SCREEN 2021-08-03 15:54:00 Prath, [facility] CBC HEMOGRAM 2021-08-03 15:54:00 Prath, [facility] COMPREHENSIVE METABOLIC 2021-08-03 15:54:00 Prath, [facility] PANEL [facility] ESTIMATED GFR 2021-08-03 15:54:00 Prath, [facility] SMEAR REVIEW 2021-08-03 15:54:00 Prath, [facility] ANTIBODY IDENTIFICATION 2021-08-03 15:54:00 Prath, [facility] CT HEAD WO CONTRAST 2021-08-01 17:47:35 Ty, [facility] COMPREHENSIVE METABOLIC 2021-08-01 17:33:00 Ty, [facility] PANEL [facility] HC COMPLETE BLD COUNT 2021-08-01 17:33:00 Ty, [facility] W/AUTO DIFF [facility] ESTIMATED GFR 2021-08-01 17:33:00 Ty, [facility] SMEAR REVIEW 2021-08-01 17:33:00 Ty, [facility] URINE CULTURE 2021-08-01 17:29:00 Ty, [facility] URINALYSIS SCREEN AND 2021-08-01 17:29:00 Ty, B[facility] MICROSCOPY, WITH REFLEX [facility] TO CULTURE TRANSFUSE RED BLOOD CELLS 2021-07-30 15:23:00 Prath, [facility] CBC HEMOGRAM 2021-07-30 14:59:00 Prath, [facility] COMPREHENSIVE METABOLIC 2021-07-30 14:59:00 Prath, [facility] PANEL [facility] ESTIMATED GFR 2021-07-30 14:59:00 Prath [facility] SMEAR REVIEW 2021-07-30 14:59:00 Prath [facility] TRANSFUSE PLATELET 2021-07-27 17:37:00 Prath, [facility] TRANSFUSE PLATELET 2021-07-27 17:02:00 Prath, [facility] PREPARE PLATELET PHERESIS 2021-07-27 15:55:00 Prath, [facility] PREPARE RBC 2021-07-27 15:55:00 Prath [facility] ANTIBODY IDENTIFICATION 2021-07-27 15:55:00 Prath, [facility] CBC HEMOGRAM 2021-07-27 15:47:00 Prath [facility] COMPREHENSIVE METABOLIC 2021-07-27 15:47:00 Prath [facility] PANEL [facility] ESTIMATED GFR 2021-07-27 15:47:00 PrathChary spital [facility] SMEAR REVIEW 2021-07-27 15:47:00 Prath [facility] CBC HEMOGRAM 2021-07-23 14:56:00 Prath, [facility] COMPREHENSIVE METABOLIC 2021-07-23 14:56:00 Prath, [facility] PANEL [facility] ESTIMATED GFR 2021-07-23 14:56:00 Prath, [facility] SMEAR REVIEW 2021-07-23 14:56:00 Prath, [facility] TRANSFUSE PLATELET 2021-07-20 17:01:00 Prath, [facility] TRANSFUSE PLATELET 2021-07-20 16:23:00 Prath, [facility] PREPARE PLATELET PHERESIS 2021-07-20 14:58:00 Prath, [facility] PREPARE RBC 2021-07-20 14:58:00 Prath, [facility] TYPE AND SCREEN 2021-07-20 14:58:00 Prath, [facility] CBC HEMOGRAM 2021-07-20 14:58:00 Prath, [facility] COMPREHENSIVE METABOLIC 2021-07-20 14:58:00 Prath, [facility] PANEL [facility] ESTIMATED GFR 2021-07-20 14:58:00 Prath, [facility] SMEAR REVIEW 2021-07-20 14:58:00 Prath, [facility] ANTIBODY IDENTIFICATION 2021-07-20 14:58:00 Prath, [facility] TRANSFUSE RED BLOOD CELLS 2021-07-16 15:47:00 Prath, [facility] CBC HEMOGRAM 2021-07-16 14:57:00 Prath, [facility] COMPREHENSIVE METABOLIC 2021-07-16 14:57:00 Prath, [facility] PANEL [facility] ESTIMATED GFR 2021-07-16 14:57:00 Prath, [facility] SMEAR REVIEW 2021-07-16 14:57:00 Prath, [facility] TRANSFUSE PLATELET 2021-07-13 16:27:00 Prath, [facility] TRANSFUSE PLATELET 2021-07-13 15:51:00 Prath, [facility] PREPARE PLATELET PHERESIS 2021-07-13 14:51:00 Prath [facility] PREPARE RBC 2021-07-13 14:51:00 Prath, [facility] CBC HEMOGRAM 2021-07-13 14:51:00 Prath, [facility] COMPREHENSIVE METABOLIC 2021-07-13 14:51:00 Prath, [facility] PANEL [facility] ESTIMATED GFR 2021-07-13 14:51:00 Prath, [facility] SMEAR REVIEW 2021-07-13 14:51:00 [facility]ath [facility] ANTIBODY IDENTIFICATION 2021-07-13 14:51:00 Prath, [facility] ELUTION 2021-07-13 14:51:00 Prath Chary [facility] TRANSFUSE PLATELET 2021-07-09 18:00:00 Prath [facility] TRANSFUSE PLATELET 2021-07-09 17:19:00 Prath [facility] TRANSFUSE RED BLOOD CELLS 2021-07-09 15:19:00 Prath [facility] CBC HEMOGRAM 2021-07-09 14:59:00 Prath [facility] COMPREHENSIVE METABOLIC 2021-07-09 14:59:00 Prath, [facility] PANEL [facility] ESTIMATED GFR 2021-07-09 14:59:00 Prath, [facility] SMEAR REVIEW 2021-07-09 14:59:00 Prath [facility] PREPARE RBC 2021-07-06 15:00:00 Prath Charylucio [facility] [place] PREPARE PLATELET PHERESIS 2021-07-06 15:00:00 Prath [facility] [place] CBC HEMOGRAM 2021-07-06 15:00:00 Prath, [facility]ary [facility] [place] COMPREHENSIVE METABOLIC 2021-07-06 15:00:00 Prath, [facility] PANEL [place] ESTIMATED GFR 2021-07-06 15:00:00 Prath, [facility] [place] SMEAR REVIEW 2021-07-06 15:00:00 Prath, [facility] [place] ANTIBODY IDENTIFICATION 2021-07-06 15:00:00 Prath, [facility] [place] TRANSFUSE PLATELET 2021-07-02 15:47:00 Prath, [facility] PHERESIS [place] TRANSFUSE PLATELET 2021-07-02 15:11:00 Prath, [facility] PHERESIS [place] PREPARE PLATELET PHERESIS 2021-07-02 14:53:00 Pra [facility] [place] CBC HEMOGRAM 2021-07-02 14:27:00 Prath Charylucio [facility]avez [facility] [place] COMPREHENSIVE METABOLIC 2021-07-02 14:27:00 Prath [facility] PANEL [place] ESTIMATED GFR 2021-07-02 14:27:00 PrathChary spital [place] SMEAR REVIEW 2021-07-02 14:27:00 Prath, [facility] [place] TRANSFUSE PLATELET 2021-06-29 16:35:00 Prath, [facility] PHERESIS [place] PREPARE PLATELET PHERESIS 2021-06-29 15:31:00 Prath, [facility] PREPARE RBC 2021-06-29 15:31:00 Prath [facility] CBC HEMOGRAM 2021-06-29 15:31:00 Prath [facility] COMPREHENSIVE METABOLIC 2021-06-29 15:31:00 Prath, [facility] PANEL [place] ESTIMATED GFR 2021-06-29 15:31:00 PrathChary spital [place] SMEAR REVIEW 2021-06-29 15:31:00 Prath, [facility] ANTIBODY IDENTIFICATION 2021-06-29 15:31:00 Prath, [facility] TRANSFUSE RED BLOOD CELLS 2021-06-25 15:41:00 Prath, [facility] CBC HEMOGRAM 2021-06-25 14:08:00 Prath, [facility] spital [place] COMPREHENSIVE METABOLIC 2021-06-25 14:08:00 Prath, [facility] PANEL [place] ESTIMATED GFR 2021-06-25 14:08:00 Prath, [facility] [place] SMEAR REVIEW 2021-06-25 14:08:00 Prath, [facility] [place] TRANSFUSE PLATELET 2021-06-22 18:20:00 Prath, [facility] TRANSFUSE PLATELET 2021-06-22 17:28:00 Prath, [facility] PREPARE PLATELET PHERESIS 2021-06-22 15:12:00 Prath, [facility] PREPARE RBC 2021-06-22 15:12:00 Prath, [facility] TYPE AND SCREEN 2021-06-22 15:12:00 Prath, [facility] CBC HEMOGRAM 2021-06-22 15:12:00 Prath, [facility] COMPREHENSIVE METABOLIC 2021-06-22 15:12:00 Prath, [facility] PANEL [place] ESTIMATED GFR 2021-06-22 15:12:00 Prath, [facility] SMEAR REVIEW 2021-06-22 15:12:00 Prath, [facility] ANTIBODY IDENTIFICATION 2021-06-22 15:12:00 Prath, [facility] TRANSFUSE RED BLOOD CELLS 2021-06-18 15:45:00 Prath, [facility] CBC HEMOGRAM 2021-06-18 14:43:00 Prath, [facility] [place] COMPREHENSIVE METABOLIC 2021-06-18 14:43:00 Prath, [facility] PANEL [place] ESTIMATED GFR 2021-06-18 14:43:00 PrathChary spital [place] SMEAR REVIEW 2021-06-18 14:43:00 Prath, [facility] TRANSFUSE PLATELET 2021-06-15 16:53:00 Prath, [facility] TRANSFUSE PLATELET 2021-06-15 15:57:00 Prath, [facility] [place] PREPARE PLATELET PHERESIS 2021-06-15 13:57:00 Prath, [facility] PREPARE RBC 2021-06-15 13:57:00 Prath, [facility] CBC HEMO[facility] 2021-06-15 13:57:00 Prath, [facility] COMPREHENSIVE METABOLIC 2021-06-15 13:57:00 Prath [facility] PANEL [place] ESTIMATED GFR 2021-06-15 13:57:00 [facility]ath [facility] SMEAR REVIEW 2021-06-15 13:57:00 Prath, [facility] ANTIBODY IDENTIFICATION 2021-06-15 13:57:00 Prath, [facility] TRANSFUSE RED BLOOD CELLS 2021-06-11 16:19:00 Prath, [facility] CBC HEMOGRAM 2021-06-11 14:53:00 Prath [facility] COMPREHENSIVE METABOLIC 2021-06-11 14:53:00 Prath, [facility] PANEL [place] ESTIMATED GFR 2021-06-11 14:53:00 Prath, [facility] SMEAR REVIEW 2021-06-11 14:53:00 Prath, [facility] TRANSFUSE PLATELET 2021-06-08 18:06:00 Prath, [facility] TRANSFUSE PLATELET 2021-06-08 17:30:00 Prath, [facility] PREPARE PLATELET PHERESIS 2021-06-08 14:26:00 Prath, [facility] PREPARE RBC 2021-06-08 14:26:00 [facility] TYPE AND SCREEN 2021-06-08 14:26:00 Prath, [facility] CBC HEMOGRAM 2021-06-08 14:26:00 PrathChary spital [place] COMPREHENSIVE METABOLIC 2021-06-08 14:26:00 [facility] ESTIMATED GFR 2021-06-08 14:26:00 PrathChary spital [place] SMEAR REVIEW 2021-06-08 14:26:00 Prath, [facility] ANTIBODY IDENTIFICATION 2021-06-08 14:26:00 Prath, Chary [facility] Ennius CBC HEMOGRAM 2021-06-04 14:47:00 Prath, [facility] COMPREHENSIVE METABOLIC 2021-06-04 14:47:00 PrathChary [facility] PANEL En[facility] ESTIMATED GFR 2021-06-04 14:47:00 PrathChary spital [place] SMEAR REVIEW 2021-06-04 14:47:00 Prath, hCary [facility] Plan of Care Planned Activity Planned Date Details Comments Source Future Scheduled 2022-06-04 HEPATITIS B VACCINES [facility] Test 07:06:47 (1 of 3 - 3-dose series) [code = HEPATITIS B VACCINES (1 of 3 - 3-dose series)] Future Scheduled 2022-06-04 65+ PNEUMOCOCCAL [facility] Test 07:06:47 VACCINE (1 - PCV) [code = 65+ PNEUMOCOCCAL VACCINE (1 - PCV)] Future Scheduled 2022-06-04 DIABETES: RETINAL EYE [facility] Test 07:06:47 EXAM [code = DIABETES: RETINAL EYE EXAM] Future Scheduled 2022-06-04 DIABETIC FOOT EXAM [facility] Test 07:06:47 [code = DIABETIC FOOT EXAM] Future Scheduled 2022-06-04 Screening for [facility] Test 07:06:47 malignant neoplasm of cervix (procedure) [code = 474647499] Future Scheduled 2022-06-04 BREAST CANCER [facility] Test 07:06:47 SCREENING [code = BREAST CANCER SCREENING] Future Scheduled 2022-06-04 COLONOSCOPY SCREENING [facility] Test 07:06:47 [code = COLONOSCOPY SCREENING] Future Scheduled 2022-06-04 SHINGLES VACCINES ([address] [facility] Test 07:06:47 of 2) [code = SHINGLES VACCINES (1 of 2)] Future Scheduled 2022-06-04 COVID-19 VACCINE (4 - Me [facility] Test 07:06:47 Booster for Pfizer series) [code = COVID-19 VACCINE (4 - Booster for Pfizer series)] Future Scheduled 2022-06-04 INFLUENZA VACCINE [facility] Test 07:06:47 [code = INFLUENZA VACCINE] Encounters Start End Encounter Admission Attending Care Care Encounter Source Date/Time Date/Time Type Type Clinicians Facility Department ID 2022-06-03 2022-06-03 Documentat Ariel 1.2.840.1 [id number] Methodi 00:00:00 00:00:00 ion Leslie 98723.1.[address] 3.430.2.7 Hospit a .3.334872 l .8 2022-06-03 2022-06-03 Orders Ariel 1.2.840.1 [id number] 28483 Methodi 00:00:00 00:00:00 Only Leslie 37317.1.[address] 3.430.2.7 Hospit a .3.733332 l .8 2022-06-03 2022-06-03 Telephone Ariel 1.2.840.1 [id number] Methodi 00:00:00 00:00:[address] 3.430.2.7 Hospit a .3.313854 l .8 2022-06-03 2022-06-03 Telephone Carl Peace.2.840.1 [id number] 2100 [id number] Methodi 00:00:00 00:00:[address] 3.430.2.7 Hospit a .3.855789 l .8 2022-06-02 2022-06-02 Orders Ariel 1.2.840.1 [id number] 07728 Methodi 00:00:00 00:00:00 Only Camacho 83862.1.[address] 3.430.2.7 Hospit a .3.430499 l .8 2022-05-31 2022-05-31 Infusion Prath, 1.2.840.1 [id number] 36957 Methodi 09:30:00 12:30:[address] [place] 3.430.2.7 Hospit a .3.591785 l .8 2022-05-31 2022-05-31 Outpatient [facility] [id number] 8[address] [place] 00:00:00 00:00:00 CHARY [address] 2022-05-31 2022-05-31 Travel 1.2.840.1 1.2.701.972 2263 [id number] Methodi 00:00:00 00:00:[address] 3.430.2.7 0.2.7.3.698 Ho spita .3.538759 084.8 l .8 2022-05-31 2022-05-31 Telephone [place], 1.2.840.1 [id number] 2099 993229 Methodi 00:00:00 00:00:[address] 3.430.2.7 Hospit a .3.098780 l .8 2022-05-31 2022-05-31 Telephone [place], 1.2.840.1 [id number] 2099 837154 Methodi 00:00:00 00:00:[address] 3.430.2.7 Hospit a .3.120069 l .8 2022-05-28 2022-05-28 Infusion Prath, 1.2.840.1 [id number] 60028 Methodi 10:15:00 13:15:[address] [place] 3.430.2.7 Hospit a .3.079961 l .8 2022-05-28 2022-05-28 Outpatient [facility] [id number] [address] [place] 00:00:00 00:00:00 CHARY [address] 2022-05-28 2022-05-28 Travel 1.2.840.1 1.2.584.813 4545 369508 Methodi 00:00:00 00:00:[address] 3.430.2.7 0.2.7.3.698 Ho spita .3.829679 084.8 l .8 2022-05-25 2022-05-25 Infusion Prath, 1.2.840.1 [id number] 20389 Methodi 09:45:00 12:45:[address] [place] 3.430.2.7 Hospit a .3.952282 l .8 2022-05-25 2022-05-25 Outpatient [facility] [id number] 8[address] [place] 00:00:00 00:00:00 CHARY [address] 2022-05-25 2022-05-25 Travel 1.2.840.1 1.2.578.073 2451 803232 Methodi 00:00:00 00:00:[address] 3.430.2.7 0.2.7.3.698 Ho spita .3.141090 084.8 l .8 2022-05-20 2022-05-20 Infusion Prath, 1.2.840.1 [id number] 99759 Methodi 09:30:00 12:30:[address] [place] 3.430.2.7 Hospit a .3.471452 l .8 2022-05-20 2022-05-20 Outpatient [facility] [id number] 7[address] [place] 00:00:00 00:00:00 CHARY [address] 2022-05-20 2022-05-20 Travel 1.2.840.1 1.2.382.882 0327 236502 Methodi 00:00:00 00:00:[address] 3.430.2.7 0.2.7.3.698 Ho spita .3.219289 084.8 l .8 2022-05-17 2022-05-17 Infusion Prath, 1.2.840.1 [id number] 54351 Methodi 09:45:00 12:45:[address] [place] 3.430.2.7 Hospit a .3.174247 l .8 2022-05-17 2022-05-17 Outpatient [facility] [id number] 7[address] [place] 00:00:00 00:00:00 CHARY [address] 2022-05-17 2022-05-17 Travel 1.2.840.1 1.2.526.487 7987 459374 Methodi 00:00:00 00:00:[address] 3.430.2.7 0.2.7.3.698 Ho spita .3.345823 084.8 l .8 2022-05-14 2022-05-14 Infusion Prath, 1.2.840.1 [id number] 67438 Methodi 09:00:00 12:00:[address] [place] 3.430.2.7 Hospit a .3.024907 l .8 2022-05-14 2022-05-14 [facility] [id number] 7[address] [place] 00:00:00 00:00:00 CHARY [address] 2022-05-14 2022-05-14 Travel 1.2.840.1 1.2.870.286 5478 292961 Methodi 00:00:00 00:00:[address] 3.430.2.7 0.2.7.3.698 Ho spita .3.144508 084.8 l .8 2022-05-10 2022-05-10 Infusion Prath, 1.2.840.1 [id number] 14 Methodi 09:45:00 12:45:[address] [place] 3.430.2.7 Hospit a .3.977169 l .8 2022-05-10 2022-05-10 [facility] [id number] 714 [place] 00:00:00 00:00:00 CHARY [address] 2022-05-06 2022-05-06 Infusion [facility], 1.2.840.1 [id number] 54100 81906 Methodi 10:00:00 13:00:[address] [place] 3.430.2.7 Hospit a .3.299932 l .8 2022-05-06 2022-05-06 [facility] [id number] 279 [place] 00:00:00 00:00:00 CHARY [address] 2022-05-05 2022-05-05 [facility], 1.2.840.1 [id number] 144036 8252 Methodi 11:45:00 13:51:46 Visit Chary 24963.1.[address] [place] 3.430.2.7 Hospit a .3.205618 l .8 2022-05-05 2022-05-05 Travel 1.2.840.1 1.2.578.637 4276 856087 Methodi 00:00:00 00:00:[address] 3.430.2.7 0.2.7.3.698 Ho spita .3.563974 084.8 l .8 2022-05-05 2022-05-05 [facility], 1.2.840.1 [id number] 62518 09178 Methodi 00:00:00 00:00:00 Only Camacho 87074.1.[address] 3.430.2.7 Hospit a .3.311274 l .8 2022-05-05 2022-05-05 [facility] [id number] 173 [place] 00:00:00 00:00:00 CHARY [address] 2022-05-03 2022-05-03 Infusion [facility], 1.2.840.1 [id number] 02825 89991 Methodi 09:45:00 12:45:[address] [place] 3.430.2.7 Hospit a .3.706107 l .8 2022-05-03 2022-05-03 [facility] [id number] 713 [place] 00:00:00 00:00:00 CHARY [address] 2022-04-30 2022-04-30 Infusion [facility], 1.2.840.1 [id number] 03632 Methodi 09:30:00 12:30:[address] [place] 3.430.2.7 Hospit a .3.205094 l .8 2022-04-30 2022-04-30 Telephone [facility], 1.2.840.1 [id number] Methodi 00:00:00 00:00:[address] 3.430.2.7 Hospit a .3.138159 l .8 2022-04-30 2022-04-30 Travel 1.2.840.1 1.2.674.675 8778 370221 Methodi 00:00:00 00:00:[address] 3.430.2.7 0.2.7.3.698 Ho spita .3.294647 084.8 l .8 2022-04-30 2022-04-30 [facility] [id number] 068 [place] 00:00:00 00:00:00 CHARY [address] 2022-04-26 2022-04-26 Infusion Pra, 1.2.840.1 [id number] 44545 Methodi 09:45:00 12:45:[address] [place] 3.430.2.7 Hospit a .3.028698 l .8 2022-04-26 2022-04-26 Travel 1.2.840.1 1.2.902.632 9366 918971 Methodi 00:00:00 00:00:[address] 3.430.2.7 0.2.7.3.698 Ho spita .3.703841 084.8 l .8 2022-04-26 2022-04-26 Outpatient [facility] [id number] 713 [place] 00:00:00 00:00:00 CHARY [address] 2022-04-23 2022-04-23 Orders Ariel 1.2.840.1 [id number] Methodi 00:00:00 00:00:00 Only Camacho 88546.1.[address] 3.430.2.7 Hospit a .3.596529 l .8 2022-04-22 2022-04-22 Infusion [place] 1.2.840.1 [id number] 2 [id number] Methodi 10:15:00 12:15:00 a, Kirk 72885.1.[address] 3.430.2.7 Hospit a .3.123170 l .8 2022-04-22 2022-04-22 Travel 1.2.840.1 1.2.326.146 8934 653108 Methodi 00:00:00 00:00:[address] 3.430.2.7 0.2.7.3.698 Ho spita .3.958029 084.8 l .8 2022-04-22 2022-04-22 Outpatient [facility] [id number] [place] 00:00:00 00:00:00 A, KIRK [address] 2022-04-21 2022-04-21 Orders Ariel 1.2.840.1 [id number] 28232 Methodi 00:00:00 00:00:00 Only Camacho 02724.1.[address] 3.430.2.7 Hospit a .3.506511 l .8 2022-04-20 2022-04-20 Orders Doctor RON 1.2.840.114 [id number] 85 [facility] 00:00:00 00:00:00 Only Unassigned, ALISON 350.1.13.10 [facility] 4.2.7.2.686 [place] as 349.2372698 [place] [address] [place] 2022-04-19 2022-04-19 Infusion Prath, 1.2.840.1 [id number] 26615 93105 Methodi 10:00:00 13:00:[address] [place] 3.430.2.7 Hospit a .3.849054 l .8 2022-04-19 2022-04-19 Travel 1.2.840.1 1.2.864.448 5182 089977 Methodi 00:00:00 00:00:[address] 3.430.2.7 0.2.7.3.698 Ho spita .3.116007 084.8 l .8 2022-04-19 2022-04-19 Outpatient [facility] [id number] 713 [place] 00:00:00 00:00:00 CHARY [address] 2022-04-15 2022-04-15 Office Prath, 1.2.840.1 [id number] 687662 9167 Methodi 10:45:00 13:14:33 Visit Chary 69838.1.[address] [place] 3.430.2.7 Hospit a .3.205003 l .8 2022-04-15 2022-04-15 Infusion Prath, 1.2.840.1 [id number] 54110 09399 Methodi 09:45:00 12:45:[address] [place] 3.430.2.7 Hospit a .3.023346 l .8 2022-04-15 2022-04-15 Travel 1.2.840.1 1.2.542.690 2180 456106 Methodi 00:00:00 00:00:[address] 3.430.2.7 0.2.7.3.698 Ho spita .3.504053 084.8 l .8 2022-04-15 2022-04-15 [facility] [id number] 871 [place] 00:00:00 00:00:00 CHARY [address] 2022-04-15 2022-04-15 [facility] [id number] 352 [place] 00:00:00 00:00:00 CHARY [address] 2022-04-12 2022-04-12 Infusion [facility], 1.2.840.1 [id number] 06007 61682 Methodi 09:30:00 15:30:[address] [place] 3.430.2.7 Hospit a .3.255347 l .8 2022-04-12 2022-04-12 Travel 1.2.840.1 1.2.904.176 4066 832917 Methodi 00:00:00 00:00:[address] 3.430.2.7 0.2.7.3.698 Ho spita .3.775136 084.8 l .8 2022-04-12 2022-04-12 [facility] [id number] 983 [place] 00:00:00 00:00:00 CHARY [address] 2022-04-09 2022-04-09 Gregorio Ariel, 1.2.840.1 [id number] 48851 Methodi 00:00:00 00:00:00 Only Camacho 57808.1.[address] 3.430.2.7 Hospit a .3.640090 l .8 2022-04-06 2022-04-06 Infusion [facility], 1.2.840.1 [id number] 69724 30232 Methodi 09:30:00 15:30:[address] [place] 3.430.2.7 Hospit a .3.438064 l .8 2022-04-06 2022-04-06 Travel 1.2.840.1 1.2.321.253 0573 449024 Methodi 00:00:00 00:00:[address] 3.430.2.7 0.2.7.3.698 Ho spita .3.951838 084.8 l .8 2022-04-06 2022-04-06 Outpatient [facility] [id number] 400 [place] 00:00:00 00:00:00 CHARY [address] 2022-04-05 2022-04-05 Infusion Prath, 1.2.840.1 [id number] Methodi 09:30:00 15:30:[address] [place] 3.430.2.7 Hospit a .3.781409 l .8 2022-04-05 2022-04-05 Travel 1.2.840.1 1.2.728.262 0249 804865 Methodi 00:00:00 00:00:[address] 3.430.2.7 0.2.7.3.698 Ho spita .3.146736 084.8 l .8 2022-04-05 2022-04-05 Orders Costa, 1.2.840.1 [id number] 2099 591815 Methodi 00:00:00 00:00:00 Only Shanell T 73251.1.[address] 3.430.2.7 Hospit a .3.295897 l .8 2022-04-05 2022-04-05 [facility] [id number] 983 [place] 00:00:00 00:00:00 CHARY [address] 2022-03-29 2022-03-29 Infusion Prath, 1.2.840.1 [id number] Methodi 09:30:00 15:30:[address] [place] 3.430.2.7 Hospit a .3.849224 l .8 2022-03-29 2022-03-29 Travel 1.2.840.1 1.2.692.726 4624 843271 Methodi 00:00:00 00:00:[address] 3.430.2.7 0.2.7.3.698 Ho spita .3.013008 084.8 l .8 2022-03-29 2022-03-29 Outpatient [facility] [id number] 983 [place] 00:00:00 00:00:00 CHARY [address] 2022-03-25 2022-03-25 Orders Igor, 1.2.840.1 [id number] 2099 476281 Methodi 00:00:00 00:00:00 Only Shanell T 25050.1.[address] 3.430.2.7 Hospit a .3.541471 l .8 2022-03-23 2022-03-23 Infusion Pra, 1.2.840.1 [id number] 34792 34605 Methodi 10:15:00 16:15:[address] [place] 3.430.2.7 Hospit a .3.195286 l .8 2022-03-23 2022-03-23 Travel 1.2.840.1 1.2.088.542 3362 067794 Methodi 00:00:00 00:00:[address] 3.430.2.7 0.2.7.3.698 Ho spita .3.069656 084.8 l .8 2022-03-23 2022-03-23 [facility] [id number] 982 [place] 00:00:00 00:00:00 CHARY [address] 2022-03-19 2022-03-19 Gregorio George, 1.2.840.1 [id number] 57543 89756 Methodi 00:00:00 00:00:00 Only Janice 49606.1.[address] 3.430.2.7 Hospit a .3.000045 l .8 2022-03-19 2022-03-19 Orders Igor, 1.2.840.1 [id number] 2099 376045 Methodi 00:00:00 00:00:00 Only Shanell T 37686.1.[address] 3.430.2.7 Hospit a .3.486839 l .8 2022-03-18 2022-03-18 Infusion Prath, 1.2.840.1 [id number] 37254 68296 Methodi 09:00:00 15:00:[address] [place] 3.430.2.7 Hospit a .3.450213 l .8 2022-03-18 2022-03-18 Office Prath, 1.2.840.1 [id number] 720954 7616 Methodi 10:00:00 12:07:15 Visit Chary 80704.1.[address] [place] 3.430.2.7 Hospit a .3.126599 l .8 2022-03-18 2022-03-18 Telephone Prath, 1.2.840.1 [id number] 2099 920670 Methodi 00:00:00 00:00:[address] [place] 3.430.2.7 Hospit a .3.580974 l .8 2022-03-18 2022-03-18 Orders Costa, 1.2.840.1 [id number] 2100 498998 Methodi 00:00:00 00:00:00 Only Shanell T 58195.1.[address] 3.430.2.7 Hospit a .3.572897 l .8 2022-03-18 2022-03-18 Orders Costa, 1.2.840.1 [id number] 2100 866457 Methodi 00:00:00 00:00:00 Only Shanell T 17878.1.[address] 3.430.2.7 Hospit a .3.160162 l .8 2022-03-18 2022-03-18 Outpatient [facility] [id number] 838 [place] 00:00:00 00:00:00 CHARY [address] 2022-03-18 2022-03-18 Outpatient [facility] [id number] 219 [place] 00:00:00 00:00:00 CHARY [address] 2022-03-11 2022-03-11 Infusion Prath, 1.2.840.1 [id number] 73246 45453 Methodi 09:00:00 15:00:[address] [place] 3.430.2.7 Hospit a .3.382777 l .8 2022-03-11 2022-03-11 Travel 1.2.840.1 1.2.060.967 5994 090836 Methodi 00:00:00 00:00:[address] 3.430.2.7 0.2.7.3.698 Ho spita .3.861332 084.8 l .8 2022-03-11 2022-03-11 [facility] [id number] 345 [place] 00:00:00 00:00:00 CHARY [address] 2022-03-04 2022-03-04 Infusion Pra, 1.2.840.1 [id number] 80587 34321 Methodi 09:45:00 15:45:[address] [facility] 3.430.2.7 Hospit a .3.754507 l .8 2022-03-04 2022-03-04 Travel 1.2.840.1 1.2.869.025 0982 469147 Methodi 00:00:00 00:00:[address] 3.430.2.7 0.2.7.3.698 Ho spita .3.541515 084.8 l .8 2022-03-04 2022-03-04 [facility] [id number] 262 [place] 00:00:00 00:00:00 CHARY [address] 2022-03-03 2022-03-03 Orders Costa, 1.2.840.1 [id number] 2099 012935 Methodi 00:00:00 00:00:00 Only Shanell T 20832.1.[address] 3.430.2.7 Hospit a .3.485043 l .8 2022-03-03 2022-03-03 Orders Ariel, 1.2.840.1 [id number] 76342 Methodi 00:00:00 00:00:00 Only Camacho 44301.1.[address] 3.430.2.7 Hospit a .3.158959 l .8 2022-03-01 2022-03-01 Infusion Pra, 1.2.840.1 [id number] 45804 72668 Methodi 09:45:00 15:45:[address] [facility] 3.430.2.7 Hospit a .3.148413 l .8 2022-03-01 2022-03-01 Travel 1.2.840.1 1.2.799.132 6112 749984 Methodi 00:00:00 00:00:[address] 3.430.2.7 0.2.7.3.698 Ho spita .3.888541 084.8 l .8 2022-03-01 2022-03-01 [facility] [id number] 514 [place] 00:00:00 00:00:00 CHARY [address] 2022-02-24 2022-02-24 Office [facility], 1.2.840.1 [id number] 296131 3616 Methodi 10:30:00 11:31:37 Visit Chary 09792.1.[address] [facility] 3.430.2.7 Hospit a .3.557221 l .8 2022-02-24 2022-02-24 Orders Hanna, 1.2.840.1 [id number] 2099 457126 Methodi 00:00:00 00:00:00 Only Shanell Garcia 95057.1.[address] 3.430.2.7 Hospit a .3.264280 l .8 2022-02-24 2022-02-24 Travel 1.2.840.1 1.2.900.583 1258 421571 Methodi 00:00:00 00:00:[address] 3.430.2.7 0.2.7.3.698 Ho spita .3.899813 084.8 l .8 2022-02-24 2022-02-24 [facility] [id number] 632 [place] 00:00:00 00:00:00 CHARY [address] 2022-02-22 2022-02-22 Infusion Prath, 1.2.840.1 [id number] 18384 Methodi 09:15:00 15:15:[address] [facility] 3.430.2.7 Hospit a .3.729520 l .8 2022-02-22 2022-02-22 Travel 1.2.840.1 1.2.433.066 3135 727326 Methodi 00:00:00 00:00:[address] 3.430.2.7 0.2.7.3.698 Ho spita .3.390662 084.8 l .8 2022-02-22 2022-02-22 Outpatient [facility] [id number] 760 [place] 00:00:00 00:00:00 CHARY [address] 2022-02-16 2022-02-16 Infusion Prath, 1.2.840.1 [id number] 37301 Methodi 09:30:00 15:30:[address] [facility] 3.430.2.7 Hospit a .3.262622 l .8 2022-02-16 2022-02-16 Travel 1.2.840.1 1.2.695.001 0206 282347 Methodi 00:00:00 00:00:[address] 3.430.2.7 0.2.7.3.698 Ho spita .3.560435 084.8 l .8 2022-02-16 2022-02-16 [facility] [id number] 748 [place] 00:00:00 00:00:00 CHARY [address] 2022-02-12 2022-02-12 Infusion Prath, 1.2.840.1 [id number] 73452 48656 Methodi 09:30:00 15:30:[address] [facility] 3.430.2.7 Hospit a .3.634680 l .8 2022-02-12 2022-02-12 Travel 1.2.840.1 1.2.071.379 1835 153252 [facility]i 00:00:00 00:00:[address] 3.430.2.7 0.2.7.3.698 Ho spita .3.230533 084.8 l .8 2022-02-12 2022-02-12 Orders Ariel, 1.2.840.1 [id number] 00883 40450 Methodi 00:00:00 00:00:00 Only Camacho 29254.1.[address] 3.430.2.7 Hospit a .3.226251 l .8 2022-02-12 2022-02-12 Outpatient [facility] [id number] 023 [place] 00:00:00 00:00:00 CHARY [address] 2022-02-11 2022-02-11 Orders Cunningham, Oneyda 1.2.840.1 [id number] 340 5841172 Methodi 00:00:00 00:00:00 Only Le 21354.1.[address] 3.430.2.7 Hospit a .3.726540 l .8 2022-02-08 2022-02-08 Infusion Prablayne, 1.2.840.1 [id number] 58821 54106 Methodi 09:15:00 15:15:[address] [facility] 3.430.2.7 Hospit a .3.304679 l .8 2022-02-08 2022-02-08 Travel 1.2.840.1 1.2.346.622 6356 598239 Methodi 00:00:00 00:00:[address] 3.430.2.7 0.2.7.3.698 Ho spita .3.082793 084.8 l .8 2022-02-08 2022-02-08 Outpatient [facility] [id number] 976 [place] 00:00:00 00:00:00 CHARY [address] 2022-02-05 2022-02-05 Orders Ariel, 1.2.840.1 [id number] 76303 Methodi 00:00:00 00:00:00 Only Janice 26338.1.[address] 3.430.2.7 Hospit a .3.711792 l .8 2022-02-01 2022-02-01 Infusion Prath, 1.2.840.1 [id number] 40530 77279 Methodi 09:15:00 15:15:[address] [facility] 3.430.2.7 Hospit a .3.840948 l .8 2022-02-01 2022-02-01 Travel 1.2.840.1 1.2.211.589 8749 870008 Methodi 00:00:00 00:00:[address] 3.430.2.7 0.2.7.3.698 Ho spita .3.833265 084.8 l .8 2022-02-01 2022-02-01 Outpatient [facility] [id number] 975 [place] 00:00:00 00:00:00 CHARY [address] 2022-01-28 2022-01-28 Infusion Pra, 1.2.840.1 [id number] 33242 59536 Methodi 09:30:00 15:30:[address] [facility] 3.430.2.7 Hospit a .3.757001 l .8 2022-01-28 2022-01-28 Office Prath, 1.2.840.1 [id number] 330257 0843 Methodi 09:30:00 11:40:34 Visit Chary 79458.1.[address] [facility] 3.430.2.7 Hospit a .3.436390 l .8 2022-01-28 2022-01-28 Travel 1.2.840.1 1.2.032.174 5683 645359 Methodi 00:00:00 00:00:[address] 3.430.2.7 0.2.7.3.698 Ho spita .3.325376 084.8 l .8 2022-01-28 2022-01-28 Outpatient [facility] [id number] 9[address] [place] 00:00:00 00:00:00 CHARY [address] 2022-01-28 2022-01-28 [facility] [id number] 943 [place] 00:00:00 00:00:00 CHARY [address] 2022-01-27 2022-01-27 Orders Ariel, 1.2.840.1 [id number] Methodi 00:00:00 00:00:00 Only Camacho 57958.1.[address] 3.430.2.7 Hospit a .3.692658 l .8 2022-01-26 2022-01-26 Orders Igor, 1.2.840.1 [id number] 2100 017335 Methodi 00:00:00 00:00:00 Only Leyla A 58826.1.[address] 3.430.2.7 Hospit a .3.545904 l .8 2022-01-26 2022-01-26 Orders Gallito Kimo 1.2.840.1 [id number] 2099 560893 Methodi 00:00:00 00:00:[address] 3.430.2.7 Hospit a .3.977478 l .8 2022-01-25 2022-01-25 Infusion Pra, 1.2.840.1 856011918 Methodi 09:15:00 15:15:[address] [facility] 3.430.2.7 Hospit a .3.191549 l .8 2022-01-25 2022-01-25 Travel 1.2.840.1 1.2.558.768 8856 912822 Methodi 00:00:00 00:00:[address] 3.430.2.7 0.2.7.3.698 Ho spita .3.512039 084.8 l .8 2022-01-25 2022-01-25 Outpatient [facility] [id number] 912 [place] 00:00:00 00:00:00 CHARY [address] 2022-01-21 2022-01-21 Infusion Pra, 1.2.840.1 [id number] 26 Methodi 09:30:00 15:30:[address] [facility] 3.430.2.7 Hospit a .3.221492 l .8 2022-01-21 2022-01-21 Office Prath, 1.2.840.1 [id number] 543983 1640 Methodi 09:30:00 09:45:00 Visit Chary 04813.1.[address] [facility] 3.430.2.7 Hospit a .3.124634 l .8 2022-01-21 2022-01-21 Travel 1.2.840.1 1.2.341.605 5366 962610 Methodi 00:00:00 00:00:[address] 3.430.2.7 0.2.7.3.698 Ho spita .3.206902 084.8 l .8 2022-01-21 2022-01-21 Outpatient [facility] [id number] [address] [place] 00:00:00 00:00:00 CHARY [address] 2022-01-21 2022-01-21 Outpatient [facility] [id number] 451 [place] 00:00:00 00:00:00 CHARY [address] 2022-01-20 2022-01-20 Gregorio Ariel, 1.2.840.1 [id number] 41573 Methodi 00:00:00 00:00:00 Only Janice 62758.1.[address] 3.430.2.7 Hospit a .3.313882 l .8 2022-01-18 2022-01-18 Infusion Pra, 1.2.840.1 154726769 Methodi 09:15:00 15:15:[address] [facility] 3.430.2.7 Hospit a .3.580996 l .8 2022-01-18 2022-01-18 Travel 1.2.840.1 1.2.084.679 6011 830391 Methodi 00:00:00 00:00:[address] 3.430.2.7 0.2.7.3.698 Ho spita .3.306787 084.8 l .8 2022-01-18 2022-01-18 [facility] [id number] [address] [place] 00:00:00 00:00:00 CHARY [address] 2022-01-14 2022-01-14 Infusion Prath, 1.2.840.1 [id number] 38063 17734 Methodi 09:30:00 15:30:[address] [facility] 3.430.2.7 Hospit a .3.186533 l .8 2022-01-14 2022-01-14 Office Pra, 1.2.840.1 [id number] 265169 5364 Methodi 11:30:00 12:00:00 Visit Chary 08707.1.[address] [facility] 3.430.2.7 Hospit a .3.924913 l .8 2022-01-14 2022-01-14 Travel 1.2.840.1 1.2.215.662 9970 943660 Methodi 00:00:00 00:00:[address] 3.430.2.7 0.2.7.3.698 Ho spita .3.132473 084.8 l .8 2022-01-14 2022-01-14 [facility] [id number] 040 [place] 00:00:00 00:00:00 CHARY [address] 2022-01-14 2022-01-14 [facility] [id number] 306 [place] 00:00:00 00:00:00 CHARY [address] 2022-01-13 2022-01-13 Gregorio George 1.2.840.1 [id number] 21001 69850 Methodi 00:00:00 00:00:00 Only Camacho 00585.1.[address] 3.430.2.7 Hospit a .3.912827 l .8 2022-01-11 2022-01-11 Infusion Prath, 1.2.840.1 Methodi 09:15:00 15:15:[address] [facility] 3.430.2.7 Hospit a .3.407458 l .8 2022-01-11 2022-01-11 Travel 1.2.840.1 1.2.808.171 1417 090004 Methodi 00:00:00 00:00:[address] 3.430.2.7 0.2.7.3.698 Ho spita .3.569193 084.8 l .8 2022-01-11 2022-01-11 Outpatient [facility] [id number] 0[address] [place] 00:00:00 00:00:00 CHARY [address] 2022-01-08 2022-01-08 Gregorio George, 1.2.840.1 Methodi 00:00:00 00:00:00 Only Camacho 24130.1.[address] 3.430.2.7 Hospit a .3.305587 l .8 2022-01-07 2022-01-07 Infusion Prath, 1.2.840.1 Methodi 09:30:00 15:30:[address] [facility] 3.430.2.7 Hospit a .3.052890 l .8 2022-01-07 2022-01-07 Travel 1.2.840.1 1.2.949.754 7278 676098 Methodi 00:00:00 00:00:[address] 3.430.2.7 0.2.7.3.698 Ho spita .3.077033 084.8 l .8 2022-01-07 2022-01-07 Orders Zaheer, 1.2.840.1 [id number] 64 Methodi 00:00:00 00:00:00 Only Linda 16909.1.[address] 3.430.2.7 Hospit a .3.330850 l .8 2022-01-07 2022-01-07 [facility] [id number] 040 [place] 00:00:00 00:00:00 HCARY [address] 2022-01-04 2022-01-04 Infusion Pra, 1.2.840.1 [id number] Methodi 09:15:00 15:15:[address] [facility] 3.430.2.7 Hospit a .3.702688 l .8 2022-01-04 2022-01-04 Travel 1.2.840.1 1.2.979.370 4907 907580 Methodi 00:00:00 00:00:[address] 3.430.2.7 0.2.7.3.698 Ho spita .3.380726 084.8 l .8 2022-01-04 2022-01-04 [facility] [id number] 040 [place] 00:00:00 00:00:00 CHARY [address] 2021-12-30 2021-12-30 Infusion Pra, 1.2.840.1 913728141 Methodi 09:30:00 15:30:[address] [facility] 3.430.2.7 Hospit a .3.638946 l .8 2021-12-30 2021-12-30 Travel 1.2.840.1 1.2.331.738 8850 890446 Methodi 00:00:00 00:00:[address] 3.430.2.7 0.2.7.3.698 Ho spita .3.179686 084.8 l .8 2021-12-30 2021-12-30 [facility] [id number] 039 [place] 00:00:00 00:00:00 CHARY [address] 2021-12-29 2021-12-29 Orders Kimo Conti 1.2.840.1 [id number] 2099958 Methodi 00:00:00 00:00:[address] 3.430.2.7 Hospit a .3.213100 l .8 2021-12-28 2021-12-28 Infusion Pra, 1.2.840.1 347764717 Methodi 09:30:00 15:30:[address] [facility] 3.430.2.7 Hospit a .3.166078 l .8 2021-12-28 2021-12-28 Travel 1.2.840.1 1.2.964.906 2293 961007 Methodi 00:00:00 00:00:[address] 3.430.2.7 0.2.7.3.698 Ho spita .3.117678 084.8 l .8 2021-12-28 2021-12-28 [facility] [id number] 160 [place] 00:00:00 00:00:00 CHARY [address] 2021-12-24 2021-12-24 Infusion Pra, 1.2.840.1 454094182 Methodi 09:30:00 15:30:[address] [facility] 3.430.2.7 Hospit a .3.873405 l .8 2021-12-24 2021-12-24 Travel 1.2.840.1 1.2.051.507 3104 820609 Methodi 00:00:00 00:00:[address] 3.430.2.7 0.2.7.3.698 Ho spita .3.009359 084.8 l .8 2021-12-24 2021-12-24 Outpatient [facility] [id number] 160 [place] 00:00:00 00:00:00 CHARY [address] 2021-12-23 2021-12-23 Ambulatory nullFlavo MNA 29173 05616 Memoria 19:30:00 19:30:00 Pre-Reg r Neurology 05 l Christoval Lizemores 2021-12-23 2021-12-23 Ambulatory nullFlavo MNA 90307 93142 Memoria 19:30:00 19:30:00 Pre-Reg r Neurology 05 l Lorena Bhatann 2021-12-23 2021-12-[address] [facility] 492 [id number] 14:30:00 14:30:00 Colin 05 Serg 2021-12-23 2021-12-23 Orders Gallito, Chelsieili 1.2.840.1 [id number] Methodi 00:00:00 00:00:[address] 3.430.2.7 Hospit a .3.082609 l .8 2021-12-23 2021-12-23 Orders Ariel, 1.2.840.1 [id number] Methodi 00:00:00 00:00:00 Only Camacho 26449.1.[address] 3.430.2.7 Hospit a .3.092906 l .8 2021-12-21 2021-12-21 Infusion Prablayne, 1.2.840.1 [id number] Methodi 09:30:00 15:30:[address] [facility] 3.430.2.7 Hospit a .3.645899 l .8 2021-12-21 2021-12-21 Travel 1.2.840.1 1.2.598.830 6144 518035 Methodi 00:00:00 00:00:[address] 3.430.2.7 0.2.7.3.698 Ho spita .3.506012 084.8 l .8 2021-12-21 2021-12-21 [facility] [id number] 160 [place] 00:00:00 00:00:00 CHARY [address] 2021-12-17 2021-12-17 Infusion Prath, 1.2.840.1 [id number] Methodi 09:30:00 15:30:[address] [facility] 3.430.2.7 Hospit a .3.461846 l .8 2021-12-17 2021-12-17 Travel 1.2.840.1 1.2.054.781 4418 394724 Methodi 00:00:00 00:00:[address] 3.430.2.7 0.2.7.3.698 Ho spita .3.001292 084.8 l .8 2021-12-17 2021-12-17 [facility] [id number] [address] [place] [address] 00:00:00 00:00:00 CHARY [address] 2021-12-14 2021-12-14 Infusion Prath, 1.2.840.1 [id number] Methodi 09:30:00 15:30:[address] [facility] 3.430.2.7 Hospit a .3.078121 l .8 2021-12-14 2021-12-14 Travel 1.2.840.1 1.2.673.908 6471 132101 Methodi 00:00:00 00:00:[address] 3.430.2.7 0.2.7.3.698 Ho spita .3.811914 084.8 l .8 2021-12-14 2021-12-14 [facility] [id number] [address] [place] [address] 00:00:00 00:00:00 CAHRY [address] 2021-12-10 2021-12-10 Infusion Prath, 1.2.840.1 [id number] Methodi 09:30:00 15:30:[address] [facility] 3.430.2.7 Hospit a .3.819873 l .8 2021-12-10 2021-12-10 Office Angella, 1.2.840.1 [id number] 903556 9963 Methodi 11:30:00 12:00:00 Visit Chary 29783.1.[address] [facility] 3.430.2.7 Hospit a .3.001652 l .8 2021-12-10 2021-12-10 Orders Zaheer, 1.2.840.1 [id number] 38887 Methodi 00:00:00 00:00:00 Only Linda 33315.1.[address] 3.430.2.7 Hospit a .3.116069 l .8 2021-12-10 2021-12-10 Travel 1.2.840.1 1.2.271.183 8376 913747 Methodi 00:00:00 00:00:[address] 3.430.2.7 0.2.7.3.698 Ho spita .3.584499 084.8 l .8 2021-12-10 2021-12-10 Outpatient [facility] [id number] [address] [place] 00:00:00 00:00:00 CHARY [address] 2021-12-10 2021-12-10 Outpatient [facility] [id number] 751 [place] 00:00:00 00:00:00 CHARY [address] 2021-12-09 2021-12-09 Outpatient [facility] [id number] 365 [facility] 10:00:00 10:00:00 05 l Can 2021-12-09 2021-12-09 Orders Ariel, 1.2.840.1 [id number] Methodi 00:00:00 00:00:00 Only Camacho 58223.1.[address] 3.430.2.7 Hospit a .3.875607 l .8 2021-12-08 2021-12-08 Orders Kimo Conti 1.2.840.1 [id number] 2099537 Methodi 00:00:00 00:00:[address] 3.430.2.7 Hospit a .3.383881 l .8 2021-12-07 2021-12-07 Infusion Prath, 1.2.840.1 [id number] Methodi 10:30:00 16:30:[address] [facility] 3.430.2.7 Hospit a .3.260962 l .8 2021-12-07 2021-12-07 Travel 1.2.840.1 1.2.985.199 6429 663168 Methodi 00:00:00 00:00:[address] 3.430.2.7 0.2.7.3.698 Ho spita .3.374546 084.8 l .8 2021-12-07 2021-12-07 Outpatient [facility] [id number] 343 [place] 00:00:00 00:00:00 CHARY [address] 2021-12-03 2021-12-03 Infusion Prath, 1.2.840.1 [id number] Methodi 10:00:00 16:00:[address] [facility] 3.430.2.7 Hospit a .3.023076 l .8 2021-12-03 2021-12-03 Travel 1.2.840.1 1.2.233.857 3260 536358 Methodi 00:00:00 00:00:[address] 3.430.2.7 0.2.7.3.698 Ho spita .3.249257 084.8 l .8 2021-12-03 2021-12-03 Outpatient [facility] [id number] [address] [place] [address] 00:00:00 00:00:00 CHARY [address] 2021-11-30 2021-11-30 Infusion Prath, 1.2.840.1 [id number] Methodi 09:30:00 15:30:[address] [facility] 3.430.2.7 Hospit a .3.327322 l .8 2021-11-30 2021-11-30 Travel 1.2.840.1 1.2.234.594 9669 021260 Methodi 00:00:00 00:00:[address] 3.430.2.7 0.2.7.3.698 Ho spita .3.487647 084.8 l .8 2021-11-30 2021-11-30 [facility] [id number] [address] [place] [address] 00:00:00 00:00:00 CHARY [address] 2021-11-26 2021-11-26 [facility], 1.2.840.1 [id number] Methodi 09:30:00 15:30:[address] [facility] 3.430.2.7 Hospit a .3.745270 l .8 2021-11-26 2021-11-26 Travel 1.2.840.1 1.2.516.617 6163 956247 Methodi 00:00:00 00:00:[address] 3.430.2.7 0.2.7.3.698 Ho spita .3.878227 084.8 l .8 2021-11-26 2021-11-26 [facility] [id number] [address] [place] [address] 00:00:00 00:00:00 CHARY [address] 2021-11-25 2021-11-25 Telephone Wero, Art 1.2.840.1 [id number] 2 [id number] Methodi 00:00:00 00:00:[address] 3.430.2.7 Hospit a .3.835534 l .8 2021-11-25 2021-11-25 Orders Ariel, 1.2.840.1 [id number] Methodi 00:00:00 00:00:00 Only Camacho 98346.1.[address] 3.430.2.7 Hospit a .3.915712 l .8 2021-11-24 2021-11-24 Orders Zaheer, 1.2.840.1 [id number] Methodi 00:00:00 00:00:00 Only Linda 80002.1.[address] 3.430.2.7 Hospit a .3.013747 l .8 2021-11-23 2021-11-23 Infusion Prath, 1.2.840.1 [id number] Methodi 09:30:00 15:30:[address] [facility] 3.430.2.7 Hospit a .3.682321 l .8 2021-11-23 2021-11-23 Travel 1.2.840.1 1.2.757.179 5263 712290 Methodi 00:00:00 00:00:[address] 3.430.2.7 0.2.7.3.698 Ho spita .3.756073 084.8 l .8 2021-11-23 2021-11-23 [facility] [id number] [address] [place] 00:00:00 00:00:00 CHARY [address] 2021 2021 Orders Kimo Conti 1.2.840.1 [id number] 2099383 Methodi 00:00:00 00:00:[address] 3.430.2.7 Hospit a .3.657025 l .8 2021-11-19 2021-11-19 Infusion Prath, 1.2.840.1 632502542 Methodi 09:30:00 15:30:[address] [facility] 3.430.2.7 Hospit a .3.234010 l .8 2021-11-19 2021-11-19 Travel 1.2.840.1 1.2.689.237 4059 757348 Methodi 00:00:00 00:00:[address] 3.430.2.7 0.2.7.3.698 Ho spita .3.663823 084.8 l .8 2021-11-19 2021-11-19 [facility] [id number] 118 [place] 00:00:00 00:00:00 CHARY [address] 2021-11-18 2021-11-18 Orders Ariel, 1.2.840.1 [id number] Methodi 00:00:00 00:00:00 Only Janice 43140.1.[address] 3.430.2.7 Hospit a .3.715717 l .8 2021-11-16 2021-11-16 Infusion Pra, 1.2.840.1 656409936 Methodi 09:00:00 15:00:[address] [facility] 3.430.2.7 Hospit a .3.140430 l .8 2021-11-16 2021-11-16 Travel 1.2.840.1 1.2.509.720 6224 690626 Methodi 00:00:00 00:00:[address] 3.430.2.7 0.2.7.3.698 Ho spita .3.257258 084.8 l .8 2021-11-16 2021-11-16 [facility] [id number] 118 [place] 00:00:00 00:00:00 CHARY [address] 2021-11-12 2021-11-12 Infusion Pra, 1.2.840.1 [id number] Methodi 09:00:00 15:00:[address] [facility] 3.430.2.7 Hospit a .3.994431 l .8 2021-11-12 2021-11-12 Orders Zaheer, 1.2.840.1 [id number] 98182 19090 Methodi 00:00:00 00:00:00 Only Linda 66096.1.[address] 3.430.2.7 Hospit a .3.690750 l .8 2021-11-12 2021-11-12 Travel 1.2.840.1 1.2.148.812 0895 217813 Methodi 00:00:00 00:00:[address] 3.430.2.7 0.2.7.3.698 Ho spita .3.890606 084.8 l .8 2021-11-12 2021-11-12 Outpatient [facility] [id number] [address] [place] 00:00:00 00:00:00 CHARY [address] 2021-11-10 2021-11-10 Orders Kimo Conti 1.2.840.1 [id number] 2099603 Methodi 00:00:00 00:00:[address] 3.430.2.7 Hospit a .3.750577 l .8 2021-11-09 2021-11-09 Infusion Pra, 1.2.840.1 778040795 Methodi 09:00:00 15:00:[address] [facility] 3.430.2.7 Hospit a .3.295628 l .8 2021-11-09 2021-11-09 Travel 1.2.840.1 1.2.526.749 6165 602113 Methodi 00:00:00 00:00:[address] 3.430.2.7 0.2.7.3.698 Ho spita .3.620141 084.8 l .8 2021-11-09 2021-11-09 [facility] [id number] [address] [place] 00:00:00 00:00:00 CHARY [address] 2021-11-06 2021-11-06 Orders Ariel, 1.2.840.1 [id number] Methodi 00:00:00 00:00:00 Only Camacho 61179.1.[address] 3.430.2.7 Hospit a .3.178554 l .8 2021-11-05 2021-11-05 [facility], 1.2.840.1 [id number] 311 4181933 Methodi 16:30:00 17:00:00 ne Chary 40459.1.[address] [facility] 3.430.2.7 Hospit a .3.195579 l .8 2021-11-05 2021-11-05 Infusion Pra, 1.2.840.1 [id number] 02615 74220 Methodi 09:00:00 15:00:[address] [facility] 3.430.2.7 Hospit a .3.793721 l .8 2021-11-05 2021-11-05 Travel 1.2.840.1 1.2.631.448 6371 923468 Methodi 00:00:00 00:00:[address] 3.430.2.7 0.2.7.3.698 Ho spita .3.266310 084.8 l .8 2021-11-05 2021-11-05 Outpatient [facility] [id number] [address] [place] 00:00:00 00:00:00 CHARY [address] 2021-11-05 2021-11-05 Outpatient [facility] [id number] 295 [place] 00:00:00 00:00:00 CHARY [address] 2021-11-02 2021-11-02 Infusion Pra, 1.2.840.1 [id number] 72586 79190 Methodi 09:00:00 15:00:[address] [facility] 3.430.2.7 Hospit a .3.487990 l .8 2021-11-02 2021-11-02 Travel 1.2.840.1 1.2.601.680 2041 990774 Methodi 00:00:00 00:00:[address] 3.430.2.7 0.2.7.3.698 Ho spita .3.643270 084.8 l .8 2021-11-02 2021-11-02 Outpatient [facility] [id number] [address] [place] 00:00:00 00:00:00 CHARY [address] 2021-10-29 2021-10-29 Infusion Pra, 1.2.840.1 [id number] 50809 53840 Methodi 09:00:00 15:00:[address] [facility] 3.430.2.7 Hospit a .3.049076 l .8 2021-10-28 2021-10-29 Outpatient nullFlavo MNA 37929 14911 [facility] 16:00:00 05:59:59 r Neurology 04 l Christoval Can 2021-10-28 2021-10-29 Outpatient nullFlavo MNA 60181 53384 [facility] 16:00:00 05:59:59 r Neurology 04 l Christoval Can 2021-10-29 2021-10-29 Travel 1.2.840.1 1.2.266.323 9083 690993 [facility]i 00:00:00 00:00:[address] 3.430.2.7 0.2.7.3.698 Ho spita .3.536073 084.8 l .8 2021-10-29 2021-10-29 Outpatient [facility] [id number] [address] [place] [address] 00:00:00 00:00:00 CHARY [address] 2021-10-28 2021-10-28 Outpatient PAM ShermanSCHDEEPAK ALEMAN 123 [id number] 10:00:00 23:59:59 Colin 04 Serg 2021-10-28 2021-10-28 Outpatient YANELI GROVES [id number] 365 [facility] 10:00:00 10:00:00 04 l Can 2021-10-27 2021-10-28 Outpatient nullFlavo MNA 26611 39236 [facility] 15:00:00 05:59:59 r Neurology 03 l Christoval Can 2021-10-27 2021-10-28 Outpatient nullFlavo MNA 57158 86438 [facility] 15:00:00 05:59:59 r Neurology 03 l Lorena Lizemores 2021-10-28 2021-10-28 Orders Ariel, 1.2.840.1 [id number] 05413 Methodi 00:00:00 00:00:00 Only Camacho 72390.1.[address] 3.430.2.7 Hospit a .3.885302 l .8 2021-10-27 2021-10-[address] [facility] [id number] 09:00:00 23:59:59 Colin 03 Serg 2021-10-27 2021-10-27 Outpatient [place] [id number] 365 [facility] 09:00:00 09:00:00 03 l Can 2021-10-27 2021-10-27 Orders Gallito, Chelsieili 1.2.840.1 [id number] Methodi 00:00:00 00:00:[address] 3.430.2.7 Hospit a .3.666776 l .8 2021-10-26 2021-10-26 Infusion Prath, 1.2.840.1 [id number] 91992 59130 Methodi 09:30:00 15:30:[address] [facility] 3.430.2.7 Hospit a .3.176947 l .8 2021-10-26 2021-10-26 Travel 1.2.840.1 1.2.367.062 1354 165896 Methodi 00:00:00 00:00:[address] 3.430.2.7 0.2.7.3.698 Ho spita .3.300635 084.8 l .8 2021-10-26 2021-10-26 Outpatient [facility] [place] [id number] 8[address] [place] 00:00:00 00:00:00 CHARY [address] 2021-10-22 2021-10-22 Infusion Prath, 1.2.840.1 [id number] 43681 59149 Methodi 09:00:00 15:00:[address] [place] 3.430.2.7 Hospit a .3.640390 l .8 2021-10-22 2021-10-22 [facility] [id number] 302 [place] 00:00:00 00:00:00 CHARY [address] 2021-10-21 2021-10-21 [facility] [id number] 5045 Methodi 10:30:00 11:41:45 Visit Chary 88157.1.[address] [place] 3.430.2.7 Hospit a .3.149624 l .8 2021-10-21 2021-10-21 Orders Wero, Art 1.2.840.1 [id number] 733 9841178 Methodi 00:00:00 00:00:[address] 3.430.2.7 Hospit a .3.042212 l .8 2021-10-21 2021-10-21 Orders Wero, Art 1.2.840.1 [id number] 623 1465602 Methodi 00:00:00 00:00:[address] 3.430.2.7 Hospit a .3.223424 l .8 2021-10-21 2021-10-21 Orders Kimo Conit 1.2.840.1 [id number] 2099 210631 Methodi 00:00:00 00:00:[address] 3.430.2.7 Hospit a .3.860712 l .8 2021-10-21 2021-10-21 Orders Ariel, 1.2.840.1 [id number] 68669 08180 Methodi 00:00:00 00:00:00 Only Janice 99469.1.[address] 3.430.2.7 Hospit a .3.807881 l .8 2021-10-21 2021-10-21 Travel 1.2.840.1 1.2.908.783 1813 737929 Methodi 00:00:00 00:00:[address] 3.430.2.7 0.2.7.3.698 Ho spita .3.099497 084.8 l .8 2021-10-21 2021-10-21 Outpatient [facility] [id number] [address] [place] 00:00:00 00:00:00 CHARY [address] 2021-10-19 2021-10-19 Infusion Pra, 1.2.840.1 [id number] 95855 Methodi 09:00:00 15:00:[address] [place] 3.430.2.7 Hospit a .3.981703 l .8 2021-10-19 2021-10-19 Travel 1.2.840.1 1.2.556.710 2112 450125 Methodi 00:00:00 00:00:[address] 3.430.2.7 0.2.7.3.698 Ho spita .3.712524 084.8 l .8 2021-10-19 2021-10-19 [facility] [id number] 302 [place] 00:00:00 00:00:00 CHARY [address] 2021-10-16 2021-10-16 Telephone Wero, Art 1.2.840.1 [id number] 2 [id number] Methodi 00:00:00 00:00:[address] 3.430.2.7 Hospit a .3.742471 l .8 2021-10-15 2021-10-15 Infusion Pra, 1.2.840.1 [id number] 63714 49922 Methodi 09:00:00 15:00:[address] [place] 3.430.2.7 Hospit a .3.715675 l .8 2021-10-15 2021-10-15 Travel 1.2.840.1 1.2.070.104 0523 448418 Methodi 00:00:00 00:00:[address] 3.430.2.7 0.2.7.3.698 Ho spita .3.458681 084.8 l .8 2021-10-15 2021-10-15 [facility] [id number] 075 [place] 00:00:00 00:00:00 CHARY [address] 2021-10-14 2021-10-14 Orders Ariel, 1.2.840.1 [id number] 21001 30485 Methodi 00:00:00 00:00:00 Only Janice 22427.1.[address] 3.430.2.7 Hospit a .3.018201 l .8 2021-10-12 2021-10-12 Infusion Pra, 1.2.840.1 [id number] 21001 61815 Methodi 09:00:00 15:00:[address] [place] 3.430.2.7 Hospit a .3.343550 l .8 2021-10-12 2021-10-12 Travel 1.2.840.1 1.2.904.496 6698 172782 Methodi 00:00:00 00:00:[address] 3.430.2.7 0.2.7.3.698 Ho spita .3.438975 084.8 l .8 2021-10-12 2021-10-12 [facility] [id number] 074 [place] 00:00:00 00:00:00 CHARY [address] 2021-10-08 2021-10-08 Infusion Pra, 1.2.840.1 [id number] 21001 76568 Methodi 10:00:00 16:00:[address] [place] 3.430.2.7 Hospit a .3.796253 l .8 2021-10-08 2021-10-08 Travel 1.2.840.1 1.2.630.812 6775 389557 Methodi 00:00:00 00:00:[address] 3.430.2.7 0.2.7.3.698 Ho spita .3.676224 084.8 l .8 2021-10-08 2021-10-08 [facility] [id number] [address] [place] [address] 00:00:00 00:00:00 CHARY [address] 2021-10-07 2021-10-07 Gregorio George, 1.2.840.1 [id number] 21001 88728 Methodi 00:00:00 00:00:00 Only Camacho 77189.1.[address] 3.430.2.7 Hospit a .3.293733 l .8 2021-10-05 2021-10-05 Infusion [facility], 1.2.840.1 [id number] 77651 Methodi 09:00:00 15:00:[address] [place] 3.430.2.7 Hospit a .3.868836 l .8 2021-10-05 2021-10-05 Travel 1.2.840.1 1.2.662.967 8914 962288 Methodi 00:00:00 00:00:[address] 3.430.2.7 0.2.7.3.698 Ho spita .3.065926 084.8 l .8 2021-10-05 2021-10-05 [facility] [id number] [address] [place] [address] 00:00:00 00:00:00 CHARY [address] 2021-10-02 2021-10-02 Gregorio George, 1.2.840.1 [id number] 99223 Methodi 00:00:00 00:00:00 Only Camacho 34410.1.[address] 3.430.2.7 Hospit a .3.822322 l .8 2021-10-01 2021-10-01 Infusion Pra, 1.2.840.1 [id number] 05783 Methodi 09:00:00 15:00:[address] [place] 3.430.2.7 Hospit a .3.287213 l .8 2021-10-01 2021-10-01 Travel 1.2.840.1 1.2.150.698 0302 336507 Methodi 00:00:00 00:00:[address] 3.430.2.7 0.2.7.3.698 Ho spita .3.292328 084.8 l .8 2021-10-01 2021-10-01 [facility] [id number] 9[address] [place] 00:00:00 00:00:00 CHARY [address] 2021-09-28 2021-09-28 Infusion Pra, 1.2.840.1 [id number] 29573 39546 Methodi 09:00:00 15:00:[address] [place] 3.430.2.7 Hospit a .3.648191 l .8 2021-09-28 2021-09-28 [facility] [id number] 953 [place] 00:00:00 00:00:00 CHARY [address] 2021-09-24 2021-09-24 Infusion Pra, 1.2.840.1 [id number] 39938 15004 Methodi 09:00:00 15:00:[address] [facility] 3.430.2.7 Hospit a .3.048114 l .8 2021-09-24 2021-09-24 Travel 1.2.840.1 1.2.161.992 9375 141175 Methodi 00:00:00 00:00:[address] 3.430.2.7 0.2.7.3.698 Ho spita .3.552005 084.8 l .8 2021-09-24 2021-09-24 [facility] [id number] 039 [place] 00:00:00 00:00:00 CHARY [address] 2021-09-23 2021-09-23 Gregorio George, 1.2.840.1 [id number] 69091 Methodi 00:00:00 00:00:00 Only Camacho 29664.1.[address] 3.430.2.7 Hospit a .3.325397 l .8 2021-09-21 2021-09-21 Infusion Prath, 1.2.840.1 [id number] 21001 37749 Methodi 09:00:00 15:00:[address] [facility] 3.430.2.7 Hospit a .3.790552 l .8 2021-09-21 2021-09-21 Travel 1.2.840.1 1.2.955.422 9759 482145 Methodi 00:00:00 00:00:[address] 3.430.2.7 0.2.7.3.698 Ho spita .3.033644 084.8 l .8 2021-09-21 2021-09-21 Outpatient [facility] [id number] 039 [place] 00:00:00 00:00:00 CHARY [address] 2021-09-17 2021-09-17 Gregorio George, 1.2.840.1 [id number] 21001 01368 Methodi 00:00:00 00:00:00 Only Janice 99034.1.[address] 3.430.2.7 Hospit a .3.765458 l .8 2021-09-16 2021-09-16 Infusion Pra, 1.2.840.1 [id number] 21001 36397 Methodi 09:00:00 15:00:[address] [facility] 3.430.2.7 Hospit a .3.132795 l .8 2021-09-16 2021-09-16 Travel 1.2.840.1 1.2.788.671 8873 788338 Methodi 00:00:00 00:00:[address] 3.430.2.7 0.2.7.3.698 Ho spita .3.358397 084.8 l .8 2021-09-16 2021-09-16 Outpatient [facility] [id number] [address] [place] [address] 00:00:00 00:00:00 CHARY [address] 2021-09-15 2021-09-15 Suman Ramos [facility] 1.2.572.891 1875 3990 Univers 00:00:00 00:00:00 Candy Quinones [facility] 350.1.13.10 i ty of ADRIANA 4.2.7.2.686 Danish as JANICE?BLEA [phone] [address] OFFICE [facility] 2021-09-14 2021-09-14 Infusion Pra, 1.2.840.1 [id number] 59859 Methodi 09:30:00 15:30:[address] [facility] 3.430.2.7 Hospit a .3.020777 l .8 2021-09-14 2021-09-14 Gregorio George 1.2.840.1 [id number] 11299 07381 Methodi 00:00:00 00:00:00 Only Camacho 38116.1.[address] 3.430.2.7 Hospit a .3.057253 l .8 2021-09-14 2021-09-14 Outpatient [facility] [id number] [address] [place] [address] 00:00:00 00:00:00 CHARY [address] 2021-09-10 2021-09-10 Infusion Prath, 1.2.840.1 [id number] 26245 Methodi 09:00:00 15:00:[address] [facility] 3.430.2.7 Hospit a .3.999800 l .8 2021-09-10 2021-09-10 Orders Ender Conteh 1.2.840.1 [id number] 870 6147509 Methodi 00:00:00 00:00:[address] 3.430.2.7 Hospit a .3.171845 l .8 2021-09-10 2021-09-10 Gregorio George 1.2.840.1 [id number] 66482 57485 Methodi 00:00:00 00:00:00 Only Janice 11478.1.[address] 3.430.2.7 Hospit a .3.040081 l .8 2021-09-10 2021-09-10 Travel 1.2.840.1 1.2.870.308 8984 959132 Methodi 00:00:00 00:00:[address] 3.430.2.7 0.2.7.3.698 Ho spita .3.448407 084.8 l .8 2021-09-10 2021-09-10 Outpatient [facility] [id number] 334 [place] 00:00:00 00:00:00 CHARY [address] 2021-09-09 2021-09-09 Office [facility], 1.2.840.1 [id number] 137224 9598 Methodi 11:30:00 14:17:49 Visit Chary 18270.1.[address] 3.430.2.7 Hospit a .3.094260 l .8 2021-09-09 2021-09-09 Travel 1.2.840.1 1.2.766.520 9971 431027 Methodi 00:00:00 00:00:[address] 3.430.2.7 0.2.7.3.698 Ho spita .3.321334 084.8 l .8 2021-09-09 2021-09-09 Outpatient [facility] [id number] 293 [place] 00:00:00 00:00:00 CHARY [address] 2021-09-07 2021-09-07 Infusion [facility], 1.2.840.1 [id number] 63604 35152 Methodi 09:00:00 15:00:[address] [facility] 3.430.2.7 Hospit a .3.284951 l .8 2021-09-07 2021-09-07 Travel 1.2.840.1 1.2.732.915 9454 863132 Methodi 00:00:00 00:00:[address] 3.430.2.7 0.2.7.3.698 Ho spita .3.351860 084.8 l .8 2021-09-07 2021-09-07 Outpatient [facility] [id number] [place] [address] 00:00:00 00:00:00 CHARY [address] 2021-09-03 2021-09-03 Infusion Pra, 1.2.840.1 [id number] 37668 Methodi 09:00:00 15:00:[address] [facility] 3.430.2.7 Hospit a .3.622096 l .8 2021-09-03 2021-09-03 Travel 1.2.840.1 1.2.611.825 9000 554435 Methodi 00:00:00 00:00:[address] 3.430.2.7 0.2.7.3.698 Ho spita .3.437888 084.8 l .8 2021-09-03 2021-09-03 [facility] [id number] [place] [address] 00:00:00 00:00:00 CHARY [address] 2021-08-31 2021-08-31 Infusion Prath, 1.2.840.1 [id number] 50350 Methodi 09:00:00 15:00:[address] [facility] 3.430.2.7 Hospit a .3.505445 l .8 2021-08-31 2021-08-31 Outpatient Compa CASTELAN [facility] [id number] 483 Univers 14:00:00 14:00:00 NOE jiang [facility] 2021-08-31 2021-08-31 Imm/Inj Nurse, Adc Pob Immunization [facility] 1.2.840.114 [id number] Univers 13:55:36 13:55:57 Visit Noe Castelan 350.1.13 .10 ity wing [facility] 4.2.7.2.686 Megan ROMEROIO [phone] Nm dical [facility] 421 [facility] 2021-08-31 2021-08-31 Travel 1.2.840.1 1.2.128.942 1627 014209 Methodi 00:00:00 00:00:[address] 3.430.2.7 0.2.7.3.698 Ho spita .3.889764 084.8 l .8 2021-08-31 2021-08-31 Outpatient [facility] [id number] 334 [place] 00:00:00 00:00:00 CHARY [facility]ug[facility] 2021-08-28 2021-08-28 Oncology [place], 1.2.840.1 [id number] 2099679 Methodi 00:00:00 00:00:00 [facility] Surekha 11035.1.1 239 s t ip 3.430.2.7 Hospit a .3.404898 l .8 2021-08-28 2021-08-28 Orders Ariel, 1.2.840.1 [id number] 21001 39036 Methodi 00:00:00 00:00:00 Only Janice 30173.1.[address] 3.430.2.7 Hospit a .3.295123 l .8 2021-08-27 2021-08-27 Infusion Angella, 1.2.840.1 [id number] Methodi 09:30:00 15:30:[address] [facility] 3.430.2.7 Hospit a .3.016543 l .8 2021-08-27 2021-08-27 Travel 1.2.840.1 1.2.663.889 7827 322010 Methodi 00:00:00 00:00:[address] 3.430.2.7 0.2.7.3.698 Ho spita .3.271198 084.8 l .8 2021-08-27 2021-08-27 [facility] [id number] 334 [place] 00:00:00 00:00:00 CHAYR [address] 2021-08-24 2021-08-24 Infusion Prath, 1.2.840.1 [id number] 80170 Methodi 09:30:00 15:30:[address] [facility] 3.430.2.7 Hospit a .3.758177 l .8 2021-08-24 2021-08-24 Travel 1.2.840.1 1.2.842.916 0769 705619 Methodi 00:00:00 00:00:[address] 3.430.2.7 0.2.7.3.698 Ho spita .3.813586 084.8 l .8 2021-08-24 2021-08-24 [facility] [id number] 334 [place] 00:00:00 00:00:00 CHARY [address] 2021-08-20 2021-08-20 Infusion Prath, 1.2.840.1 [id number] 95078 Methodi 10:00:00 16:00:[address] [facility] 3.430.2.7 Hospit a .3.178340 l .8 2021-08-20 2021-08-20 Travel 1.2.840.1 1.2.797.972 6597 221461 Methodi 00:00:00 00:00:[address] 3.430.2.7 0.2.7.3.698 Ho spita .3.068949 084.8 l .8 2021-08-20 2021-08-20 [facility] [id number] 646 [place] 00:00:00 00:00:00 CHARY [address] 2021-08-18 2021-08-18 Outpatient LETICIA CAI [facility] [id number] [facility] 14:20:00 14:20:00 [facility] [id number] [facility] 2021-08-18 2021-08-18 Outpatient R TRELL, LETICIA [facility] [id number] Univers 14:20:00 14:20:00 TRELLLETICIA Napier [facility] 2021-08-17 2021-08-17 Outpatient R MARK [facility] [id number] Univers 16:26:01 23:59:00 CANDY [facility] 2021-08-17 2021-08-17 [facility] 1.2.840.114 19946 299 Univers 16:00:00 23:59:00 Encounter [facility]686 [facility] [phone] [address] 2021-08-17 2021-08-17 [facility] [id number] -20 Univers 17:15:00 17:15:00 CANDY [id number] [facility] 2021-08-17 2021-08-17 Instrumentation Engineer Maura, [facility] Main [facility] 1.2.8 40.114 [id number] Univers 16:47:51 17:02:51 Visit Candy Ramos 350.1.13.10 [facility] 4.2.7.2.686 [facility] [phone] Nm dical [address] 2021-08-17 2021-08-17 Infusion Prath, 1.2.840.1 [id number] 54134 52710 Methodi 09:00:00 15:00:[address] [facility] 3.430.2.7 Hospit a .3.132150 l .8 2021-08-17 2021-08-17 Travel 1.2.840.1 1.2.701.728 0910 214273 Methodi 00:00:00 00:00:[address] 3.430.2.7 0.2.7.3.698 Ho spita .3.626872 084.8 l .8 2021-08-17 2021-08-17 Outpatient [facility] [id number] 646 [place] 00:00:00 00:00:00 CHARY [address] 2021-08-17 2021-08-17 Orders Doctor ASAF 1.2.840.114 [id number] 60 Univers 00:00:00 00:00:00 Only Unassigned, ALISON 350.1.13.10 ity of [place] [facility] 4.2.7.2.686 Danish as [phone] [address] 2021-08-12 2021-08-12 Infusion Pra, 1.2.840.1 [id number] 77677 Methodi 10:00:00 16:00:[address] [facility] 3.430.2.7 Hospit a .3.050485 l .8 2021-08-12 2021-08-12 Travel 1.2.840.1 1.2.410.090 4624 711382 Methodi 00:00:00 00:00:[address] 3.430.2.7 0.2.7.3.698 Ho spita .3.551424 084.8 l .8 2021-08-12 2021-08-12 Outpatient [facility] [id number] 687 [place] 00:00:00 00:00:00 CHARY [address] 2021-08-10 2021-08-10 Infusion Prath, 1.2.840.1 [id number] 87 Methodi 09:30:00 15:30:[address] [facility] 3.430.2.7 Hospit a .3.868957 l .8 2021-08-10 2021-08-10 Travel 1.2.840.1 1.2.783.990 9479 867956 Methodi 00:00:00 00:00:[address] 3.430.2.7 0.2.7.3.698 Ho spita .3.169526 084.8 l .8 2021-08-10 2021-08-10 Outpatient [facility] [id number] 687 [place] 00:00:00 00:00:00 CHARY [address] 2021-08-06 2021-08-06 Infusion Prath, 1.2.840.1 [id number] Methodi 09:30:00 15:30:[address] [facility] 3.430.2.7 Hospit a .3.268522 l .8 2021-08-06 2021-08-06 Travel 1.2.840.1 1.2.352.245 6589 433317 Methodi 00:00:00 00:00:[address] 3.430.2.7 0.2.7.3.698 Ho spita .3.124177 084.8 l .8 2021-08-06 2021-08-06 [facility] [id number] [address] [place] [address] 00:00:00 00:00:00 CHARY [address] 2021-08-03 2021-08-03 Infusion Prath, 1.2.840.1 [id number] Methodi 09:30:00 15:30:[address] [facility] 3.430.2.7 Hospit a .3.959228 l .8 2021-08-03 2021-08-03 Travel 1.2.840.1 1.2.647.304 9937 559730 Methodi 00:00:00 00:00:[address] 3.430.2.7 0.2.7.3.698 Ho spita .3.720480 084.8 l .8 2021-08-03 2021-08-03 [facility] [id number] [address] [place] [address] 00:00:00 00:00:00 CHARY [address] 2021-08-01 2021-08-01 Emergency Rivenes, 1.2.840.1 [id number] 853 9801281 Methodi 10:53:00 13:30:00 Oziel Colon 44477.1.[address] 3.430.2.7 Hospit a .3.644034 l .8 2021-08-01 2021-08-01 Travel 1.2.840.1 1.2.346.147 2487 440534 Methodi 00:00:00 00:00:[address] 3.430.2.7 0.2.7.3.698 Ho spita .3.905472 084.8 l .8 2021-08-01 2021-08-01 Emergency [facility] 604 [id number] 854 [place] 00:00:00 00:00:[address] [facility] 2021-07-31 2021-07-31 [facility] 1.2.840.114 [id number] 97 Univers 13:36:05 14:37:49 Visit [facility] 350.1.13.10 i ty [facility] 4.2.7.2.686 Danish as JANICE?BLEA [phone] [address] OFFICE [facility] 2021-07-31 2021-07-31 [facility] [id number] 766 [facility] 13:30:00 14:37:49 CANDY [facility] 2021-07-30 2021-07-30 Infusion Prath, 1.2.840.1 [id number] 19453 25595 Methodi 08:30:00 14:30:[address] [facility] 3.430.2.7 Hospit a .3.775171 l .8 2021-07-30 2021-07-30 Office Pra, 1.2.840.1 [id number] 683757 0678 Methodi 08:30:00 09:00:00 Visit Chary 18899.1.[address] [facility] 3.430.2.7 Hospit a .3.538385 l .8 2021-07-30 2021-07-30 Travel 1.2.840.1 1.2.891.634 7826 353568 Methodi 00:00:00 00:00:[address] 3.430.2.7 0.2.7.3.698 Ho spita .3.778775 084.8 l .8 2021-07-30 2021-07-30 [facility] [id number] 236 [place] 00:00:00 00:00:00 CHARY [address] 2021-07-30 2021-07-30 [facility] [id number] 309 [place] 00:00:00 00:00:00 CHARY [address] 2021-07-27 2021-07-27 [facility], 1.2.840.1 [id number] 19914 Methodi 09:00:00 15:00:[address] [facility] 3.430.2.7 Hospit a .3.491612 l .8 2021-07-27 2021-07-27 Travel 1.2.840.1 1.2.284.762 9338 376674 Methodi 00:00:00 00:00:[address] 3.430.2.7 0.2.7.3.698 Ho spita .3.296405 084.8 l .8 2021-07-27 2021-07-27 [facility] [id number] 236 [place] 00:00:00 00:00:00 CHARY [address] 2021-07-24 2021-07-24 [facility], 1.2.840.1 [id number] 71214 Methodi 00:00:00 00:00:00 Only Camacho 80559.1.[address] 3.430.2.7 Hospit a .3.761210 l .8 2021-07-23 2021-07-23 Infusion [facility], 1.2.840.1 [id number] 71495 Methodi 09:30:00 15:30:[address] [facility] 3.430.2.7 Hospit a .3.350554 l .8 2021-07-23 2021-07-23 Travel 1.2.840.1 1.2.390.111 6199 036699 Methodi 00:00:00 00:00:[address] 3.430.2.7 0.2.7.3.698 Ho spita .3.289008 084.8 l .8 2021-07-23 2021-07-23 Outpatient [facility] [id number] 930 [place] 00:00:00 00:00:00 CHARY [address] 2021-07-20 2021-07-20 Infusion Prath, 1.2.840.1 [id number] 36 Methodi 09:30:00 15:30:[address] [facility] 3.430.2.7 Hospit a .3.436769 l .8 2021-07-20 2021-07-20 Travel 1.2.840.1 1.2.371.925 2208 703544 Methodi 00:00:00 00:00:[address] 3.430.2.7 0.2.7.3.698 Ho spita .3.293917 084.8 l .8 2021-07-20 2021-07-20 [facility] [id number] 236 [place] 00:00:00 00:00:[address] CHARY [address] 2021-07-16 2021-07-16 Infusion Prath, 1.2.840.1 484349385 388 Methodi 09:30:00 15:30:[address] [facility] 3.430.2.7 Hospit a .3.863544 l .8 2021-07-16 2021-07-16 Travel 1.2.840.1 1.2.840.496 9671 698739 Methodi 00:00:00 00:00:[address] 3.430.2.7 0.2.7.3.698 Ho spita .3.990903 084.8 l .8 2021-07-16 2021-07-16 Outpatient [facility] [id number] 388 [place] 00:00:00 00:00:00 CHARY [address] 2021-07-14 2021-07-14 Orders Zaheer, 1.2.840.1 [id number] 59956 Methodi 00:00:00 00:00:00 Only Linda 01026.1.[address] 3.430.2.7 Hospit a .3.931932 l .8 2021-07-13 2021-07-13 Infusion Pra, 1.2.840.1 [id number] 10424 Methodi 09:30:00 15:30:[address] [facility] 3.430.2.7 Hospit a .3.276754 l .8 2021-07-13 2021-07-13 Travel 1.2.840.1 1.2.165.990 4268 509144 Methodi 00:00:00 00:00:[address] 3.430.2.7 0.2.7.3.698 Ho spita .3.047290 084.8 l .8 2021-07-13 2021-07-13 Outpatient [facility] [id number] 388 [place] 00:00:00 00:00:00 CHARY [address] 2021-07-09 2021-07-09 Infusion Pra, 1.2.840.1 [id number] 96867 Methodi 09:30:00 15:30:[address] [facility] 3.430.2.7 Hospit a .3.753309 l .8 2021-07-09 2021-07-09 Travel 1.2.840.1 1.2.886.619 2122 919355 Methodi 00:00:00 00:00:[address] 3.430.2.7 0.2.7.3.698 Ho spita .3.408347 084.8 l .8 2021-07-09 2021-07-09 [facility] [id number] 880 [place] 00:00:00 00:00:00 CHARY [address] 2021-07-06 2021-07-06 Infusion Prath, 1.2.840.1 [id number] 880 Methodi 09:30:00 15:30:[address] [facility] 3.430.2.7 Hospit a .3.967695 l .8 2021-07-06 2021-07-06 Travel 1.2.840.1 1.2.245.047 5117 391012 Methodi 00:00:00 00:00:[address] 3.430.2.7 0.2.7.3.698 Ho spita .3.658023 084.8 l .8 2021-07-06 2021-07-06 [facility] [id number] 880 [place] 00:00:00 00:00:00 CHARY [address] 2021-07-02 2021-07-02 Infusion [facility], 1.2.840.1 [id number] 268 Methodi 09:30:00 15:30:[address] [facility] 3.430.2.7 Hospit a .3.785117 l .8 2021-07-02 2021-07-02 Travel 1.2.840.1 1.2.074.764 7465 366868 Methodi 00:00:00 00:00:[address] 3.430.2.7 0.2.7.3.698 Ho spita .3.114400 084.8 l .8 2021-07-02 2021-07-02 [facility] [id number] [address] [place] [address] 00:00:00 00:00:00 CHARY [address] 2021-07-01 2021-07-01 Orders Ariel, 1.2.840.1 [id number] 14 Methodi 00:00:00 00:00:00 Only Janice 20838.1.[address] 3.430.2.7 Hospit a .3.060131 l .8 2021-06-29 2021-06-29 Infusion Prath, 1.2.840.1 [id number] 30722 Methodi 10:00:00 16:00:[address] [facility] 3.430.2.7 Hospit a .3.271041 l .8 2021-06-29 2021-06-29 Travel 1.2.840.1 1.2.497.858 1385 167693 Methodi 00:00:00 00:00:[address] 3.430.2.7 0.2.7.3.698 Ho spita .3.199918 084.8 l .8 2021-06-29 2021-06-29 [facility] [id number] 268 [place] 00:00:00 00:00:00 CHARY [address] 2021-06-25 2021-06-25 Infusion [facility], 1.2.840.1 [id number] 76520 Methodi 09:00:00 15:00:[address] [facility] 3.430.2.7 Hospit a .3.477996 l .8 2021-06-25 2021-06-25 Travel 1.2.840.1 1.2.740.586 0516 220865 Methodi 00:00:00 00:00:[address] 3.430.2.7 0.2.7.3.698 Ho spita .3.979999 084.8 l .8 2021-06-25 2021-06-25 [facility] [id number] 058 [place] 00:00:00 00:00:00 CHARY [address] 2021-06-24 2021-06-24 Orders Ariel, 1.2.840.1 [id number] 41098 Methodi 00:00:00 00:00:00 Only Janice 77269.1.[address] 3.430.2.7 Hospit a .3.780203 l .8 2021-06-22 2021-06-22 Infusion Prath, 1.2.840.1 [id number] 04719 Methodi 10:00:00 16:00:[address] [facility] 3.430.2.7 Hospit a .3.963749 l .8 2021-06-22 2021-06-22 Travel 1.2.840.1 1.2.036.019 3342 298320 Methodi 00:00:00 00:00:[address] 3.430.2.7 0.2.7.3.698 Ho spita .3.002388 084.8 l .8 2021-06-22 2021-06-22 [facility] [id number] [address] [place] [address] 00:00:00 00:00:00 CHARY [address] 2021-06-18 2021-06-18 Infusion Pra, 1.2.840.1 [id number] 421 Methodi 09:30:00 15:30:[address] [facility] 3.430.2.7 Hospit a .3.702158 l .8 2021-06-18 2021-06-18 Travel 1.2.840.1 1.2.487.607 6327 974539 Methodi 00:00:00 00:00:[address] 3.430.2.7 0.2.7.3.698 Ho spita .3.856647 084.8 l .8 2021-06-18 2021-06-18 [facility] [id number] 421 [place] 00:00:00 00:00:00 CHARY [address] 2021-06-17 2021-06-17 Orders Ariel, 1.2.840.1 [id number] [facility] 00:00:00 00:00:00 Only Janice 42559.1.[address] 3.430.2.7 Hospit a .3.788496 l .8 2021-06-15 2021-06-15 Infusion Prath, 1.2.840.1 [id number] 421 [facility] 08:30:00 14:30:[address] [facility] 3.430.2.7 Hospit a .3.635768 l .8 2021-06-15 2021-06-15 Travel 1.2.840.1 1.2.578.917 0006 [id number] [facility] 00:00:00 00:00:[address] 3.430.2.7 0.2.7.3.698 Ho spita .3.809540 084.8 l .8 2021-06-15 2021-06-15 Outpatient [facility] [id number] [address] [place] [address] 00:00:00 00:00:00 CHARY [address] 2021-06-12 2021-06-12 Orders Ariel, 1.2.840.1 [id number] [facility] 00:00:00 00:00:00 Only Janice 24617.1.[address] 3.430.2.7 Hospit a .3.171324 l .8 2021-06-11 2021-06-11 Infusion Prath, 1.2.840.1 [id number] 421 [facility] 09:30:00 15:30:[address] [facility] 3.430.2.7 Hospit a .3.473938 l .8 2021-06-11 2021-06-11 Travel 1.2.840.1 1.2.894.725 8236 968300 [facility] 00:00:00 00:00:[address] 3.430.2.7 0.2.7.3.698 Ho spita .3.444628 084.8 l .8 2021-06-11 2021-06-11 [facility] [id number] 421 [place] 00:00:00 00:00:00 CHARY [address] 2021-06-08 2021-06-08 Infusion Prath, 1.2.840.1 [id number] 421 [facility] 09:30:00 15:30:[address] [facility] 3.430.2.7 Hospit a .3.428963 l .8 2021-06-08 2021-06-08 Travel 1.2.840.1 1.2.350.717 8552 760370 [facility] 00:00:00 00:00:[address] 3.430.2.7 0.2.7.3.698 Ho spita .3.351978 084.8 l .8 2021-06-08 2021-06-08 [facility] [id number] 421 [place] 00:00:00 00:00:00 CHARY [address] 2021-06-04 2021-06-04 Infusion Prath, 1.2.840.1 [id number] [facility] 09:30:00 15:30:[address] [facility] 3.430.2.7 Hospit a .3.610979 l .8 2021-06-04 2021-06-04 Orders Prath, 1.2.840.1 [id number] 8110 [facility] 00:00:00 00:00:00 Only Chary 29530.1.[address] [facility] 3.430.2.7 Hospit a .3.628340 l .8 2021-06-04 2021-06-04 Travel 1.2.840.1 1.2.644.911 4992 023711 [facility] 00:00:00 00:00:[address] 3.430.2.7 0.2.7.3.698 Ho spita .3.309795 084.8 l .8 2021-06-04 2021-06-04 [facility] [id number] 421 [place] 00:00:00 00:00:00 CHARY [address] 2021-06-01 2021-06-01 [facility]patient [facility] [id number] 421 [place] 00:00:00 00:00:00 CHARY [address] 2021-06-01 2021-06-01 Outpatient [facility] [id number] 464 [place] 00:00:00 00:00:00 CHARY [address] 2021-05-29 2021-05-29 Outpatient [facility] [id number] 420 [place] 00:00:00 00:00:00 CHARY [address] 2021-05-26 2021-05-26 Outpatient [facility] [id number] 420 [place] 00:00:00 00:00:00 CHARY [address] 2021-05-21 2021-05-21 Outpatient [facility] [id number] 458 [place] 00:00:00 00:00:00 CHARY 637 [facility] 2021-05-18 2021-05-18 Outpatient [facility] [id number] 457 [place] 00:00:00 00:00:00 CHARY [address] 2021-05-14 2021-05-14 Outpatient [facility] [id number] 778 [place] 00:00:00 00:00:00 CHARY [address] 2021-05-11 2021-05-11 Outpatient [facility] [id number] 778 [place] 00:00:00 00:00:00 CHARY [address] 2021-05-07 2021-05-07 Outpatient [facility] [id number] 778 [place] 00:00:00 00:00:00 CHARY [address] 2021-05-04 2021-05-04 Outpatient [facility] [id number] 778 [place] 00:00:00 00:00:00 CHARY [address] 2021-05-01 2021-05-01 Outpatient [facility] [id number] 948 [place] 00:00:00 00:00:00 CHARY [address] 2021-04-28 2021-04-28 Outpatient [facility] [id number] 948 [place] 00:00:00 00:00:00 CHARY [address] 2021-04-23 2021-04-23 Outpatient [facility] [id number] 872 [place] 00:00:00 00:00:00 CHARY [address] 2021-04-20 2021-04-20 Outpatient [facility] [id number] 872 [place] 00:00:00 00:00:00 CHARY [address] 2021-04-16 2021-04-16 Outpatient [facility] [id number] 872 [place] 00:00:00 00:00:00 CHARY [address] 2021-04-13 2021-04-13 Outpatient [facility] [id number] 872 [place] 00:00:00 00:00:00 CHARY [address] 2021-04-09 2021-04-09 Outpatient [facility] [id number] 691 [place] 00:00:00 00:00:00 CHARY [address] 2021-04-06 2021-04-06 Outpatient [facility] [id number] 691 [place] 00:00:00 00:00:00 CHARY [address] 2021-04-02 2021-04-02 Outpatient [facility] [id number] 850 [place] 00:00:00 00:00:00 CHARY [address] 2021-04-02 2021-04-02 Outpatient [facility] [id number] 261 [place] 00:00:00 00:00:00 CHARY [address] 2021-03-30 2021-03-30 Outpatient [facility] [id number] 850 [place] 00:00:00 00:00:00 CHARY [address] 2021-03-26 2021-03-26 [facility] [id number] 861 [place] 00:00:00 00:00:00 [facility] [address] 2021-03-24 2021-03-24 [facility] [id number] 256 [place] 00:00:00 00:00:00 CHARY [address] 2021-03-19 2021-03-19 [facility] [id number] 256 [place] 00:00:00 00:00:00 CHARY [address] 2021-03-16 2021-03-16 [facility] [id number] 255 [place] 00:00:00 00:00:00 CHARY [address] 2021-03-12 2021-03-12 [facility] [id number] 500 [place] 00:00:00 00:00:00 CHARY [address] 2021-03-09 2021-03-09 Outpatient [facility] [id number] 500 [place] 00:00:00 00:00:00 CHARY [address] 2021-03-05 2021-03-05 [facility]patient [facility] [id number] 500 [place] 00:00:00 00:00:00 CHARY [address] 2021-03-02 2021-03-02 [facility] [id number] 500 [place] 00:00:00 00:00:00 CHARY [address] 2021-02-26 2021-02-26 [facility] [id number] 988 [place] 00:00:00 00:00:00 CHARY [address] 2021-02-26 2021-02-26 [facility] [id number] 026 [place] 00:00:00 00:00:00 CHARY [address] 2021-02-23 2021-02-23 [facility] [id number] 026 [place] 00:00:00 00:00:00 CHARY [address] 2021-02-20 2021-02-20 [facility]patient [facility] [id number] 835 [place] 00:00:00 00:00:00 CHARY [address] 2021-02-19 2021-02-19 [facility]patient [facility] [id number] 868 [place] 00:00:00 00:00:00 CHARY [address] 2021-02-17 2021-02-17 [facility] [id number] 310 [place] 00:00:00 00:00:00 CHARY [address] 2021-02-13 2021-02-13 [facility] [id number] 457 [place] 00:00:00 00:00:00 CHARY [address] 2021-02-12 2021-02-12 [facility] [id number] 867 [place] 00:00:00 00:00:00 CHARY [address] 2021-02-09 2021-02-09 [facility] [id number] 867 [place] 00:00:00 00:00:00 CHARY [address] 2021-02-05 2021-02-05 [facility] [id number] 043 [place] 00:00:00 00:00:00 CHARY [address] 2021-02-05 2021-02-05 [facility] [id number] 867 [place] 00:00:00 00:00:00 CHARY [address] 2021-02-03 2021-02-03 [facility] [id number] 715 [place] 00:00:00 00:00:00 CHARY [address] 2021-02-02 2021-02-02 [facility] [id number] 867 [place] 00:00:00 00:00:00 CHARY [address] 2021-01-29 2021-01-29 Out[facility] [id number] 867 [place] 00:00:00 00:00:00 [facility] [address] 2021-01-27 2021-01-27 Out[facility] [id number] 257 [place] 00:00:00 00:00:00 CHARY [address] 2021-01-26 2021-01-26 Out[facility] [id number] 866 [place] 00:00:00 00:00:00 CHARY [address] 2021-01-23 2021-01-23 Out[facility] [id number] 866 [place] 00:00:00 00:00:00 CHARY [address] 2021-01-21 2021-01-21 [facility] [id number] 847 [place] 00:00:00 00:00:00 CHARY [address] 2021-01-20 2021-01-20 Outpatient [facility] [id number] 371 [place] 00:00:00 00:00:00 CHARY [address] 2021-01-14 2021-01-14 Out[facility] [id number] 369 [place] 00:00:00 00:00:00 CHARY [address] 2021-01-13 2021-01-13 Out[facility] [id number] 181 [place] 00:00:00 00:00:00 CHARY [address] 2021-01-08 2021-01-08 Out[facility] [id number] 444 [place] 00:00:00 00:00:00 CHARY [address] 2021-01-06 2021-01-06 Out[facility] [id number] 181 [place] 00:00:00 00:00:00 CHARY [address] 2020-12-31 2020-12-31 Out[facility] [id number] 353 [place] 00:00:00 00:00:00 CHARY [address] 2020-12-30 2020-12-30 Outpatient [facility] [id number] 822 [place] 00:00:00 00:00:00 CHARY [address] 2020-12-24 2020-12-24 Out[facility] [id number] 761 [place] 00:00:00 00:00:00 CHARY [address] 2020-12-23 2020-12-23 Outpatient [facility] [id number] 822 [place] 00:00:00 00:00:00 CHARY [address] 2020-12-16 2020-12-16 Out[facility] [id number] 767 [place] 00:00:00 00:00:00 [facility] [address] 2020-12-09 2020-12-09 Outpatient [facility] [id number] 689 [place] 00:00:00 00:00:00 CHARY [address] 2020-12-03 2020-12-03 Outpatient [facility] [id number] 299 [place] 00:00:00 00:00:00 CHARY [address] 2020-12-02 2020-12-02 Outpatient [facility] [id number] 766 [place] 00:00:00 00:00:00 CHARY [address] 2020-11-25 2020-11-25 Outpatient [facility] [id number] 824 [place] 00:00:00 00:00:00 [facility] [address] 2020 2020 Outpatient [facility] [id number] 340 [place] 00:00:00 00:00:00 CHARY [address] 2020-11-19 2020-11-19 Outpatient [facility] [id number] 222 [place] 00:00:00 00:00:00 CHARY [address] 2020-11-18 2020-11-18 Outpatient [facility] [id number] 355 [place] 00:00:00 00:00:00 CHARY [address] 2020-11-11 2020-11-11 Outpatient [facility] [id number] 355 [place] 00:00:00 00:00:00 CHARY [address] 2020-11-07 2020-11-07 Out[facility] [id number] 416 [place] 00:00:00 00:00:00 CHARY [address] 2020-10-28 2020-10-28 Out[facility] [id number] 266 [place] 00:00:00 00:00:00 CHARY [address] 2020-10-21 2020-10-21 Out[facility] [id number] 715 [place] 00:00:00 00:00:00 CHARY [address] 2020-10-14 2020-10-14 Out[facility] [id number] 926 [place] 00:00:00 00:00:00 CHARY [address] 2020-10-13 2020-10-13 Out[facility] [id number] 896 [place] 00:00:00 00:00:00 CH[facility] [address] 2020-10-07 2020-10-07 Out[facility] [id number] 926 [place] 00:00:00 00:00:00 CHARY [address] 2020-09-30 2020-09-30 Outpatient [facility] [id number] 885 [place] 00:00:00 00:00:00 CH[facility] [address] 2020-09-24 2020-09-24 Out[facility] [id number] 295 [place] 00:00:00 00:00:00 CH[facility] [address] 2020-09-23 2020-09-23 Outpatient [facility] [id number] 459 [place] 00:00:00 00:00:00 CHARY [address] 2020-09-16 2020-09-16 Out[facility] [id number] 198 [place] 00:00:00 00:00:00 CHARY [address] 2020-09-15 2020-09-15 Out[facility] [id number] 277 [place] 00:00:00 00:00:00 CHARY [address] 2020-09-11 2020-09-11 Outpatient [facility] [id number] 198 [place] 00:00:00 00:00:00 CHARY [address] 2020-09-09 2020-09-09 Out[facility] [id number] 908 [place] 00:00:00 00:00:00 CHARY [address] 2020-09-05 2020-09-05 Out[facility] [id number] 553 [place] 00:00:00 00:00:00 CH[facility] [address] 2020-09-02 2020-09-02 Outpatient [facility] [id number] 791 [place] 00:00:00 00:00:00 CHARY [address] 2020-08-29 2020-08-29 Outpatient [facility] [id number] 552 [place] 00:00:00 00:00:00 CHARY [address] 2020-08-26 2020-08-26 Outpatient [facility] [id number] 772 [place] 00:00:00 00:00:00 CHARY [address] 2020-08-22 2020-08-22 Out[facility] [id number] 280 [place] 00:00:00 00:00:00 CHARY [address] 2020-08-19 2020-08-19 Outpatient [facility] [id number] 248 [place] 00:00:00 00:00:00 CHARY [address] 2020-08-18 2020-08-18 Outpatient [facility] [id number] 402 [place] 00:00:00 00:00:00 CHARY [address] 2020-08-12 2020-08-12 Outpatient [facility] [id number] 248 [place] 00:00:00 00:00:00 CHARY [address] 2020-08-08 2020-08-08 Out[facility] [id number] 247 [place] 00:00:00 00:00:00 CHARY [address] 2020-08-05 2020-08-05 Outpatient [facility] [id number] 246 [place] 00:00:00 00:00:00 CHARY [address] 2020-08-01 2020-08-01 Outpatient [facility] [id number] 347 [place] 00:00:00 00:00:00 CHARY [address] 2020-07-31 2020-07-31 Outpatient [facility] [id number] 404 [place] 00:00:00 00:00:00 CHARY [address] 2020-07-31 2020-07-31 Outpatient [facility] [id number] 579 [place] 00:00:00 00:00:00 CHARY [address] 2020-07-29 2020-07-29 Outpatient [facility] [id number] 347 [place] 00:00:00 00:00:00 CHARY [address] 2020-07-25 2020-07-25 Outpatient [facility] [id number] 472 [place] 00:00:00 00:00:00 CH[facility] [address] 2020-07-22 2020-07-22 Outpatient [facility] [id number] 472 [place] 00:00:00 00:00:00 CHARY [address] 2020-07-18 2020-07-18 Outpatient [facility] [id number] 472 [place] 00:00:00 00:00:00 CHARY [address] 2020-07-17 2020-07-17 Outpatient [facility] [id number] 580 [place] 00:00:00 00:00:00 CHARY [address] 2020-07-17 2020-07-17 Outpatient [facility] [id number] 574 [place] 00:00:00 00:00:00 CHARY [address] 2020-07-15 2020-07-15 Out[facility] [id number] 469 [place] 00:00:00 00:00:00 CHARY [address] 2020-07-09 2020-07-10 Outpatient NANGIA, [facility] [id number] 099 [place] 00:00:00 00:00:00 MALGORZATA [address] 2020-07-08 2020-07-08 Outpatient [facility] [id number] 469 [place] 00:00:00 00:00:00 CHARY [address] 2020-07-04 2020-07-04 Outpatient [facility] [id number] 704 [place] 00:00:00 00:00:00 CHARY [address] 2020-07-01 2020-07-01 Outpatient [facility] [id number] 704 [place] 00:00:00 00:00:00 CHARY [address] 2020-07-01 2020-07-01 Outpatient [facility] [id number] 160 [place] 00:00:00 00:00:00 CHARY [address] 2020-06-27 2020-06-27 Outpatient [facility] [id number] 704 [place] 00:00:00 00:00:00 CHARY [address] 2020-06-24 2020-06-24 Out[facility] [id number] 704 [place] 00:00:00 00:00:00 CHARY [address] 2020-06-24 2020-06-24 [facility] [id number] 162 [place] 00:00:00 00:00:00 CHARY [address] 2020-06-24 2020-06-24 Outpatient [facility] [id number] 155 [place] 00:00:00 00:00:00 CHARY [address] 2020-06-20 2020-06-20 Outpatient [facility] [id number] [place] 00:00:00 00:00:00 BYRON [address] 2020-06-16 2020-06-18 Inpatient NASEERULLAH [facility] [id number] [place] 00:00:00 00:00:00 , KURTIS [address] 2020-06-16 2020-06-16 [facility] [id number] 662 [place] 00:00:00 00:00:00 CHARY [address] 2020-06-13 2020-06-13 Outpatient [facility] [id number] 656 [place] 00:00:00 00:00:00 CHARY [address] 2020-06-10 2020-06-10 Outpatient [facility] [id number] [place] 00:00:00 00:00:00 BYRON [address] 2020-06-05 2020-06-05 Outpatient [facility] [id number] [place] 00:00:00 00:00:00 BYRON [address] 2020-06-05 2020-06-05 Outpatient [facility] [id number] 954 [place] 00:00:00 00:00:00 CHARY [address] 2020-06-03 2020-06-03 Outpatient [facility] [id number] [place] 00:00:00 00:00:00 BYRON [address] 2020-05-30 2020-05-30 Outpatient [facility] [id number] [place] 00:00:00 00:00:00 BYRON [address] 2020-05-20 2020-05-29 Inpatient PADRON, [facility] [id number] 02 [place] 00:00:00 00:00:00 NEMESIO [address] 2020-05-16 2020-05-16 Outpatient [facility] [id number] [place] 00:00:00 00:00:00 BYRON [address] 2020-05-13 2020-05-13 Outpatient [facility] [id number] [place] 00:00:00 00:00:00 BYRON [address] 2020-05-09 2020-05-09 Outpatient [facility] [id number] 95622 [place] 00:00:00 00:00:00 BYRON [address] 2020-05-06 2020-05-06 Outpatient [facility] [id number] [place] 00:00:00 00:00:00 BYRON [address] 2020-05-05 2020-05-05 Outpatient [facility] [id number] [place] 00:00:00 00:00:00 BYRON [address] 2020-05-01 2020-05-02 Inpatient LUIS FOURNIER [facility] [id number] [place] 00:00:00 00:00:[address] 2020-04-30 2020-04-30 Outpatient [facility] [id number] [place] 00:00:00 00:00:00 BYRON [address] 2020-04-14 2020-04-18 Inpatient IVETT ADAMS [facility] [id number] [place] 00:00:00 00:00:[address] 2016-04-15 2016-04-15 Emergency ROBIN CARREON [facility] [id number] 8022 [place] 00:00:00 00:00:00 679 Method i Results Test Description Test Time Test Comments Results Result Comments Source Antibody identification 2022-05-06 23:08:00 Test Item Value Reference Range Interpretation Comme nts Antibody ID (test code = 79660-4) POS, [facility], 2 [id number] 18:03:00 Test Item Value Reference Range Interpretation Comments Product name (test code Red Cells AS1 = 25) Leukored Irrad Unit number (test code = [id number]) Product code (test code C9651M34 = 3092) Dispense status (test Transfused code = 24) Blood expiration date (test code = 302) Blood type code (test code = 308) Blood type (test code = A NEGATIVE 1314) Compatibility (test code Compatible = 6400) ALIA (test code = ALIA) Previous comment was ?Transfusion Indications->Platelet Dysfunction, verified by HIS at 10:10 on 04/30/2022. [facility] reflex with [id number] 02:48:00 Test Item Value Reference Range Interpretation Comments IgG Lázaro, gel (test code = 1590) POS Anti-complement (test code = 1004-1) NEG [facility] [id number] 02:22:00 Test Item Value Reference Range Interpretation Comments Elution (test code = POS ANTI-KE LLAnti-K in the 2605) plasma and elua te indicate a serological r esponse to red celltransfu sions. Patient should be monitored for s igns of possible hemoly sis.Red cells for all r ed cell transfusions wi ll be negative for th e D and Kantigens [place] [address]. [facility] L[facility]aro' (DAVID)2021-12-28 20:26:00 Test Item Value Reference Range Interpretation Comments Wiho-UoB-O2l Polyspecific (test code = POS 2585) [facility] patient [id number] 03:00:00 Test Item Value Reference Range Interpretation Comments [place] Antigen Patient Typing (test code NEG = 2616) [facility] screen (gel)2021-09-07 22:25:00 Test Item Value Reference Range Interpretation Comments Antibody screen (gel) (test code = NEG 890-4) [facility] [id number] 18:05:47 Test Item Value Reference Range Interpretation Comments Urine culture (test SEE COMMENT Bacteriu dione screen code = 0382101) negative. [facility] RNA [Presence] in Respiratory specimen by SHANTELLE with probe [id number] 06:04:12 Test Item Value Reference Range Interpretation Comments SARS-CoV-2 (COVID-19) RNA Not detected Not-Detected [Presence] in Respiratory specimen by SHANTELLE with probe detection (test code = 10547-1) SARS-CoV-2 (COVID-19) RNA [Presence] in Respiratory specimen by SHANTELLE with probe [id number] 02:52:50 Test Item Value Reference Range Interpretation Comments SARS-CoV-2 (COVID-19) RNA Not detected Not-Detected [Presence] in Respiratory specimen by SHANTELLE with probe detection (test code = 49534-1) SARS-CoV-2 (COVID-19) RNA [Presence] in Respiratory specimen by SHANTELLE with probe [id number] 01:01:51 Test Item Value Reference Range Interpretation Comments SARS-CoV-2 (COVID-19) RNA Not detected Not-Detected [Presence] in Respiratory specimen by SHATNELLE with probe detection (test code = 84114-2) SARS-CoV-2 (COVID-19) RNA [Presence] in Respiratory specimen by SHANTELLE with probe [id number] 16:04:37 Test Item Value Reference Range Interpretation Comments SARS-CoV-2 (COVID-19) RNA Not detected Not-Detected [Presence] in Respiratory specimen by SHANTELLE with probe detection (test code = 42690-8)
[2022-06-04] MEDS ORDERED: NA CHLORIDE 0.9% 500 ML ONE ×2 (13:46→18:08)
[2022-06-04] MEDS ORDERED: ACETAMINOPHEN 325 MG TABLET ONE (13:46)
[2022-06-04 14:16] LABS: Protime INR 0.94
[2022-06-04 14:52] LABS: Absolute Lymphocytes (CBC) 0.7 K/uL (0.7-4.9); Hematocrit 28.8 % (36.0-45.0); Lymphocytes % 32.2 % (15.3-44.8); MCV 112.9 fL (80-100); RBC Red Blood Cell Count 2.55 M/uL (3.86-4.86)
[2022-06-04 14:53] LABS: MPV 9.4 fL (7.6-11.3)
[2022-06-04 15:12] LABS: Albumin 3.4 g/dL (3.4-5.0); Bilirubin Direct 0.2 mg/dL (0-0.2); Bilirubin Total 0.8 mg/dL (0.2-1.0); Protein, Total 6.6 g/dL (6.4-8.2); Troponin High Sensitivity 13.8 pg/mL (<58.9)
[2022-06-04 15:16] LABS: Potassium 4.4 mmol/L (3.5-5.1)
[2022-06-04 15:17] LABS: Magnesium 2.3 mg/dL (1.8-2.4)
--- NOTE | 2022-06-04 17:18 | RAD REPORT ---
EXAM DESCRIPTION: CT - Head Brain Wo Cont - 06/04/2022 5:06 pm CLINICAL HISTORY: headache COMPARISON: Head Brain Wo Cont dated 05/08/2022; Head Brain Wo Cont dated 07/25/2016 TECHNIQUE: All CT scans are performed using dose optimization technique as appropriate and may inclu de automated exposure control or mA/KV adjustment according to patient size. FINDINGS: No intracranial hemorrhage, hydrocephalus or extra-axial fluid collection.No areas of brai n edema or evidence of midline shift. The paranasal sinuses and mastoids are clear. The calvarium is intact. IMPRESSION: No acute intracranial abnormality.
--- NOTE | 2022-06-04 19:05 | EDPHYS ---
Physician Documentation [facility] Name: Caroline Newberry Age: 66 yrs Sex: Female : 1955 Arrival Date: 06/04/2022 Time: 12:39 Bed 3 Private MD: Kirk Garcia R ED Physician Pawel Cadet HPI: 06/04 13:14 This 66 yrs old Black Female presents to ER via Ambulatory with complaints of Anemia. jmm 13:14 This is a 66-year-old female with history of hypertension, diabetes mellitus the jmm presents emerged department with complaints of headache, fatigue which began last night. Patient states that she has had similar symptoms in the past and she has needed platelet and blood transfusions that she states is due to her lupus. Denies chest pain, vomiting, shortness of breath, fever.. Historical: - Allergies: 12:52 Sulfa (Sulfonamide Antibiotics); kr3 - PMHx: 12:52 Hypertension; Diabetes mellitus; kr3 - PSHx: 12:52 hysterectomy; section; kr3 - Immunization history:: Adult Immunizations up to date. - Social history:: Smoking status: Patient denies any tobacco usage or history of. ROS: 13:14 Cardiovascular: Negative for chest pain, palpitations, and edema, Respiratory: Negative jm for shortness of breath, cough, wheezing, and pleuritic chest pain. 13:14 Constitutional: Positive for body aches, chills, fatigue. 13:14 Neuro: Positive for headache. 13:14 All other systems are negative. Exam: 13:14 Constitutional: This is a well developed, well nourished patient who is awake, alert, jmm and in no acute distress. Head/Face: atraumatic. Eyes: EOMI, no conjunctival erythema appreciated ENT: Moist Mucus Membranes Neck: Trachea midline, Supple Chest/axilla: Normal chest wall appearance and motion. Cardiovascular: Regular rate and rhythm. No edema appreciated Respiratory: Normal respirations, no respiratory distress appreciated Abdomen/GI: Non distended Back: Normal ROM Skin: General appearance color normal MS/ Extremity: Moves all extremities, no obvious deformities appreciated, no edema noted to the lower extremities Neuro: Awake and alert Psych: Behavior is normal, Mood is normal, Patient is cooperative and pleasant Vital Signs: 12:47 BP 138 / 74; Pulse 84; Resp 16; Temp 98.4(O); Pulse Ox 98% on R/A; Weight 56.7 kg; kr3 Height 4 ft. 11 in. (149.86 cm); Pain 7/10; 16:00 BP 116 / 77; Pulse 80; Resp 16; Temp 98.3(O); Pulse Ox 100% ; Pain 0/10; jh6 18:15 BP 118 / 64; Pulse 86; Resp 17; Temp 98.4(O); Pulse Ox 99% ; Pain 0/10; jh6 18:25 BP 124 / 79; Pulse 79; Resp 17; Temp 98.2(O); Pulse Ox 99% ; Pain 0/10; jh6 12:47 Body Mass Index 25.25 (56.70 kg, 149.86 cm) kr3 MDM: 13:14 Patient medically screened. [facility] 19:02 Data reviewed: vital signs, nurses notes. Counseling: I had a detailed discussion with [facility] the patient and/or guardian regarding: the historical points, exam findings, and any diagnostic results supporting the discharge/admit diagnosis, lab results, radiology results, the need for outpatient follow up, to return to the emergency department if symptoms worsen or persist or if there are any questions or concerns that arise at home. 06/04 13:22 Order name: Basic Metabolic Panel; Complete Time: 15:55 [facility] 06/04 13:22 Order name: CBC with Diff [facility] 06/04 13:22 Order name: LFT's; Complete Time: 15:55 [facility] 06/04 13:22 Order name: Magnesium; Complete Time: 15:55 [facility] 06/04 13:22 Order name: NT PRO-BNP; Complete Time: 15:55 [facility] 06/04 13:22 Order name: PT-INR; Complete Time: 14:17 [facility] 06/04 13:22 Order name: Troponin HS; Complete Time: 15:55 [facility] 06/04 14:56 Order name: Type And Screen [facility] 06/04 16:06 Order name: Bb Add On em1 06/04 16:30 Order name: Platelets, Leukored Pheresis [facility] 06/04 16:50 Order name: CT Head Brain wo Cont; Complete Time: 17:22 [facility] 06/04 17:22 Order name: ABO/RH no charge; Complete Time: 17:22 [facility] 06/04 13:22 Order name: EKG; Complete Time: 13:23 [facility] 06/04 13:22 Order name: Cardiac monitoring; Complete Time: 13:51 [facility] 06/04 13:22 Order name: EKG - Nurse/Tech; Complete Time: 13:51 [facility] 06/04 13:22 Order name: IV Saline Lock; Complete Time: 13:23 [facility] 06/04 13:22 Order name: Labs collected and sent; Complete Time: 13:23 [facility] 06/04 13:22 Order name: O2 Per Protocol; Complete Time: 13:23 [facility] 06/04 13:22 Order name: O2 Sat Monitoring; Complete Time: 13:23 [facility] 06/04 13:51 Order name: Labs - recollect needed; Complete Time: 14:44 em1 Administered Medications: 13:52 Drug: NS 0.9% 500 ml Route: IV; Rate: bolus; Site: right antecubital; 1 13:52 Drug: Acetaminophen 650 mg {Note: pain 8/10 JAQUEZ.} Route: PO; ll1 Disposition Summary: 06/04/22 19:04 Discharge Ordered Location: Home [facility] Condition: Stable [facility] Diagnosis - Thrombocytopenia, unspecified [facility] Followup: [facility] - With: Peri Mullen MD - When: 2 - 3 days - Reason: Recheck today's complaints, Continuance of care, Re-evaluation by your physician Discharge Instructions: - Discharge Summary Sheet jm - Thrombocytopenia [facility] - Platelet Transfusion [facility] Forms: - Medication Reconciliation Form [facility] - Thank You Letter [facility] - Antibiotic Education [facility] - Prescription Opioid Use [facility] Signatures: Dispatcher [employer] EDMS Max Segura PA PA jmm Martinez, Eric em1 Kelechi Marks, RN RN ll1 Sheridan Baxter RN RN kr3
--- NOTE | 2022-06-04 19:05 | ER ---
Nurse's Notes [facility] Name: Caroline Newberry Age: 66 yrs Sex: Female : 1955 Arrival Date: 06/04/2022 Time: 12:39 Bed 3 Private MD: Kirk Garcia R Diagnosis: Thrombocytopenia, unspecified Presentation: 06/04 12:47 Chief complaint: Patient states: woke up not feeling well, headache when first woke up kr3 but is easing up now but it is still pounding. Feels extremely tired, hx of anemia and blood transfusion. Coronavirus screen: Vaccine status: Patient reports receiving the 2nd dose of the covid vaccine. Client denies travel out of the [place] in the last 14 days. Ebola Screen: Patient denies travel to an Ebola-affected area in the 21 days before illness onset. Initial Sepsis Screen: Does the patient meet any 2 criteria? No. Patient's initial sepsis screen is negative. Does the patient have a suspected source of infection? No. Patient's initial sepsis screen is negative. Risk Assessment: Do you want to hurt yourself or someone else? Patient reports no desire to harm self or others. Onset of symptoms was June 03, 2022. 12:47 Method Of Arrival: Ambulatory kr3 12:47 Acuity: LOLITA 3 kr3 Triage Assessment: 12:53 General: Appears in no apparent distress. comfortable, Behavior is calm, cooperative, kr3 appropriate for age. Pain: Complains of pain in head. Historical: - Allergies: 12:52 Sulfa (Sulfonamide Antibiotics); kr3 - PMHx: 12:52 Hypertension; Diabetes mellitus; kr3 - PSHx: 12:52 hysterectomy; section; kr3 - Immunization history:: Adult Immunizations up to date. - Social history:: Smoking status: Patient denies any tobacco usage or history of. Screenin:57 Abuse screen: Denies threats or abuse. Nutritional screening: No deficits noted. ll1 Tuberculosis screening: No symptoms or risk factors identified. 16:00 Fall Risk IV access (20 points). 6 Assessment: 13:33 Reassessment: No changes from previously documented assessment. Patient and/or family ll1 updated on plan of care and expected duration. Pain level reassessed. 13:52 Reassessment: No changes from previously documented assessment. Patient and/or family ll1 updated on plan of care and expected duration. Pain level reassessed. Patient is alert, oriented x 3, equal unlabored respirations, skin warm/dry/pink. 16:00 Reassessment: Patient and/or family updated on plan of care and expected duration. Pain jh6 level reassessed. Patient is alert, oriented x 3, equal unlabored respirations, skin warm/dry/pink. pt placed in room 3 at this time. 17:00 Reassessment: No changes from previously documented assessment. Patient and/or family jh6 updated on plan of care and expected duration. Pain level reassessed. Patient denies pain at this time. 18:00 Reassessment: No changes from previously documented assessment. Consent for Platelets jh6 on chart. Vital Signs: 12:47 BP 138 / 74; Pulse 84; Resp 16; Temp 98.4(O); Pulse Ox 98% on R/A; Weight 56.7 kg; kr3 Height 4 ft. 11 in. (149.86 cm); Pain 7/10; 16:00 BP 116 / 77; Pulse 80; Resp 16; Temp 98.3(O); Pulse Ox 100% ; Pain 0/10; jh6 18:15 BP 118 / 64; Pulse 86; Resp 17; Temp 98.4(O); Pulse Ox 99% ; Pain 0/10; jh6 18:25 BP 124 / 79; Pulse 79; Resp 17; Temp 98.2(O); Pulse Ox 99% ; Pain 0/10; jh6 12:47 Body Mass Index 25.25 (56.70 kg, 149.86 cm) kr3 ED Course: 12:39 Patient arrived in ED. mr 12:39 Kirk Garcia MD is Private Physician. mr 12:51 Triage completed. kr3 12:54 Arm band placed on right wrist. Patient placed in an exam room, on a stretcher. kr3 12:57 Kelechi Marks, CHELSI is Primary Nurse. ll1 12:58 Patient has correct armband on for positive identification. Bed in low position. Call ll1 light in reach. 12:59 Max Segura PA is PHCP. jm 12:59 Pawel Cadet MD is Attending Physician. jmm 13:33 Inserted saline lock: 20 gauge in right antecubital area, using aseptic technique. ll1 Blood collected. 14:45 Notified Nurse Practitioner and/or Physician Sericulture Teacher of a critical lab result(s), iw platelets 19. 17:08 CT Head Brain wo Cont In Process Unspecified. EDMS 19:03 Peri Mullen MD is Referral Physician. [facility] 19:13 No provider procedures requiring assistance completed. IV discontinued. ke1 Administered Medications: 13:52 Drug: NS 0.9% 500 ml Route: IV; Rate: bolus; Site: right antecubital; ll1 13:52 Drug: Acetaminophen 650 mg {Note: pain 8/10 JAQUEZ.} Route: PO; ll1 Medication: 12:58 VIS not applicable for this client. 1 Outcome: 19:04 Discharge ordered by . [facility] 19:14 Discharged to home ambulatory. ke1 19:14 Condition: good 19:14 Discharge instructions given to patient. 19:33 Patient left the ED. ke1 Signatures: Dispatcher [employer] EDMS Max Segura PA PA [facility] HarshLeyla Vicky Kelley, RN Kelechi Cochran RN RN ll1 Rosario Ivey RN RN 6 Misty Wells RN CHELSI ke1 Sheridan Baxter RN RN kr3 Corrections: (The following items were deleted from the chart) 12:52 12:47 Chief complaint: Patient states: woke up not feeling well, headache when first kr3 woke up but is easing up now. Feels extremely tired, hx of anemia and blood transfusion. kr3
[2022-06-04 21:41] LABS: Anisocytosis 1+; Blood Morphology Comment NOTED (NOT SEEN); Macrocytosis 1+; Platelet Estimate DECR; Polychromasia 1+; White Blood Cell Scan OK (OK)
[2022-06-06 02:56] VITALS: O2SAT 99
[2022-06-06 03:30] VITALS: BP 124/79; TEMP 98.2
--- NOTE | 2022-06-06 15:59 | EKG ---
Test Date: 2022-06-04 Test Time: 13:51:15 Data Deliverables Manager: LML MEASUREMENT RESULTS: Intervals: Rate: 75 [place]: 154 QRSD: 82 QT: 336 QTc: 375 Moore: P: 64 [place]: 154 QRS: 37 T: 20 INTERPRETIVE STATEMENTS: Normal sinus rhythm Normal ECG Compared to ECG 05/08/2022 12:07:23 Sinus bradycardia no longer present Electronically Signed On 06-06-22 15:55:43 CDT by Micheal Castaneda
== END 2022-06-04 19:33 | disposition home or self-care (01) ==
LOC: ER 12:36
PROC: 30233R1 Transfusion of Nonautologous Platelets into Peripheral Vein, Percutaneous Approach (ICD-10-PCS; principal; 2022-06-04)
DX: D69.6 Thrombocytopenia, unspecified (principal); I10 Essential (primary) hypertension; Z88.2 Allergy status to sulfonamides
CPT/HCPCS: 93005; 85025; 80048; 36415; 86900; 83735; 86850; 85610; 86901; 80076; 84484; 83880; 70450; 99284; 36430; P9035; J7040 ×2; P9100